=== PATIENT | male | born 1935 | race Caucasian/White ===

== ENCOUNTER 2017-04-09 21:29 | Inpatient (IN) | payer MEDICARE ==
[~2017-04-09] VITALS: Ht 172.7 cm; Wt 88.8 kg
[~2017-04-09 21:29] MED LIST changes: -ASPI1TAB24 PO; -BUME0.5T PO; -COUM1TAB14 PO; -DRIS50002 PO
[2017-04-09] MEDS: IPRATROPIUM 0.5MG/ALBUTEROL 2.5MG INH SOL UD 3ML (DUONEB)(J7620) NEB PRN ×2 (22:00→22:43)
[2017-04-09] MEDS ORDERED: NS 500 ML IV ONE ×2 (22:00→22:45)
[2017-04-09 22:20] LABS: BASO % 0.3 % (0.0-1.0); EOS # 0.1 K/mm3 (0.0-0.50); EOS % 1.4 % (0.0-3.0); LARGE UNSTAINED CELL % 0.4 % (0.0-4.0); LYMPH # 0.2 K/mm3 (1.5-4.5); LYMPH % 1.7 % (24.0-44.0); MEAN CORPUSCULAR HEMOGLOBIN 32.6 pg (27.0-33.0); MEAN CORPUSCULAR HGB CONC 33.6 g/dl (32.0-36.5); MEAN CORPUSCULAR VOLUME 97.1 fl (80.0-96.0); MONO # 0.3 K/mm3 (0.0-0.8); MONO % 3.3 % (0.0-5.0); NEUTROPHILS # 9.3 K/mm3 (1.8-7.7); NEUTROPHILS % 92.8 % (36.0-66.0); PLATELET COUNT, AUTOMATED 152 k/mm3 (150-450); RED CELL DISTRIBUTION WIDTH 14.1 % (11.5-14.5)
[2017-04-09 22:42] LABS: ALBUMIN 3.3 GM/DL (3.2-5.2); ALBUMIN/GLOBULIN RATIO 0.94 (1.00-1.93); BILIRUBIN,DIRECT 1.1 MG/DL (0.0-0.2); BILIRUBIN,TOTAL 1.7 MG/DL (0.2-1.0); CALCIUM LEVEL 8.1 MG/DL (8.8-10.2); CREATININE FOR GFR 2.73 MG/DL (0.70-1.30); POTASSIUM SERUM 4.9 MEQ/L (3.5-5.1); TOTAL PROTEIN 6.8 GM/DL (6.4-8.2)
[2017-04-09] MEDS ORDERED: ACETAMINOPHEN TAB 650MG DOSE (2X325MG) PO ONE (22:45)
[2017-04-09] MEDS ORDERED: cefTRIAXone SOD 2 GM in D5W MINI-BAG PLUS 50 ML IV ONE (22:45)
[2017-04-09] MEDS ORDERED: COUM1TAB14 PO (23:41)
[2017-04-09] MEDS ORDERED: BUME0.5T PO (23:41)
[2017-04-09] MEDS ORDERED: DRIS50002 PO (23:42)
[2017-04-09] MEDS ORDERED: ASPI1TAB24 PO (23:43)
[2017-04-10] VITALS (8 sets, daily range): BP systolic 84–110; BP diastolic 6–68
[2017-04-10 00:20] LABS: ABG BASE EXCESS -3.5 (-2.0-2.0); ABG HCO3 19.3 MEQ/L (22.0-26.0); ABG PARTIAL PRESSURE CO2 29.4 mmHg (35.0-45.0); ABG PARTIAL PRESSURE O2 68.1 mmHg (75.0-100.0); ABG STANDARD HCO3 21.5 MEQ/L (22.0-26.0); ABG TOTAL CO2 20.2 MEQ/L (23.0-31.0); ABG pH (ARTERIAL) 7.436 UNITS (7.350-7.450)
[2017-04-10] MEDS ORDERED: ALBUTEROL SULFATE 2.5 MG/0.5 ML INH NEB SOLN INH PRN ×2 (01:00→04:20)
[2017-04-10] MEDS ORDERED: ALBUTEROL 90 MCG/ACT 8GM HFA INHALER INH PRN (01:00)
[2017-04-10] MEDS ORDERED: AZITHROMYCIN INJ 500 MG, VIAL MATE ADAPTER 1 EACH in D5W 250 ML IV SCH (01:00)
[2017-04-10] MEDS ORDERED: ONDANSETRON 4MG/2ML VIAL (J2405) IV PRN (01:15)
[2017-04-10] MEDS ORDERED: ACETAMINOPHEN TAB 650MG DOSE (2X325MG) PO PRN (01:15)
[2017-04-10] MEDS ORDERED: ALBUTEROL SULFATE 2.5 MG/0.5 ML INH NEB SOLN As Ordered ONE (04:26)
[2017-04-10] MEDS: LEVOTHYROXINE 0.075 MG TAB (75 MCG) PO SCH (05:49)
[2017-04-10 05:51] LABS: MEAN CORPUSCULAR HEMOGLOBIN 32.8 pg (27.0-33.0); MEAN CORPUSCULAR HGB CONC 33.5 g/dl (32.0-36.5); MEAN CORPUSCULAR VOLUME 97.8 fl (80.0-96.0); RED CELL DISTRIBUTION WIDTH 14.4 % (11.5-14.5); WHITE BLOOD COUNT 9.7 K/mm3 (4.0-10.0)
[2017-04-10 06:27] LABS: ALBUMIN 2.9 GM/DL (3.2-5.2); ALBUMIN/GLOBULIN RATIO 0.71 (1.00-1.93); CALCIUM LEVEL 8.1 MG/DL (8.8-10.2); CREATININE FOR GFR 2.83 MG/DL (0.70-1.30); POTASSIUM SERUM 4.7 MEQ/L (3.5-5.1)
[2017-04-10] MEDS: TIOTROPIUM INHALER/CAPSULE (SPIRIVA) INH SCH (07:34)
[2017-04-10] MEDS: SYMBICORT 160/4.5MCG INHALER 6GM INH SCH ×2 (07:35→21:00)
[2017-04-10] MEDS: MOM 30ML SUSPENSION UDC PO SCH (08:23)
[2017-04-10] MEDS: ASPIRIN 81 MG ENTERIC TAB PO SCH (08:23)
[2017-04-10] MEDS: METOPROLOL SUCC *XL* 25MG TAB (TopROL *XL*) PO SCH (08:23)
[2017-04-10] MEDS ORDERED: SPIRONOLACTONE 25 MG TAB PO SCH (09:00)
--- NOTE | 2017-04-10 10:22 | IPNPDOC ---
Subjective Date Seen The patient was seen on 04/10/17. Subjective Chief Complaint/HPI The patient is a 82-year-old male admitted with a reason for visit of Pneumonia , Shortness Of Breath. Events since last encounter feeling better this am , still has some cough but no chills or rigors. no hemoptysis. denies any sob , denies ny chest pain , no nausea or vomiting or diarrhea. Objective Physical Examination General Exam: Positive: Alert, Cooperative, No Acute Distress Eye Exam: Positive: PERRLA, Conjunctiva & lids normal, EOMI, Negative: Sclera icteric ENT Exam: Positive: Atraumatic, Mucous membr. moist/pink, Pharynx Normal Neck Exam: Positive: Supple, Negative: JVD, thyromegaly Chest Exam: Positive: Rales, Diminished Heart Exam: Positive: Rate Normal, Regular Rhythm, Normal S1, Normal S2, Negative: Murmurs, Rubs Telemetry: Positive: No significant arrhythmia Abdomen Exam: Positive: Normal bowel sounds, Soft, Other (ascitis present), Negative: Tenderness, Hepatospenomegaly Extremity Exam: Positive: Normal pulses, Negative: Clubbing, Cyanosis, Edema Assessment /Plan Problems (1) Pneumonia Status: Acute Problem Text: will continue with current antibiotics. (2) CKD (chronic kidney disease) Status: Chronic Response to Treatment: Stable Problem Text: stage 4 due to age, advanced heart failure and vascular disease. creatinine at baseline (3) Cirrhosis Status: Chronic Problem Text: due to alcohol abuse has history of hepatorenal syndrome, recurrent ascites (4) Chronic systolic (congestive) heart failure Status: Chronic Response to Treatment: Stable Problem Text: last EF of 30% in 2015. 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 (13) Lactic acidosis Status: Acute Problem Text: possibly due to SOB and increased work of breathing and chronic liver disease. Plan/VTE VTE Prophylaxis Ordered?: Yes VS, I&O, 24H, Fishbone Vital Signs/I&O Vital Signs Date Time Temp Pulse Resp B/P (MAP) Pulse Ox O2 Delivery O2 Flow Rate FiO2 04/10/17 07:20 Nasal Cannula 2.0 04/10/17 04:00 96.1 54 20 90/62 (71) 94 Laboratory Data 24H LABS Laboratory Tests 2 04/09/17 22:03: White Blood Count 10.0, Red Blood Count 4.36, Hemoglobin 14.2, Hematocrit 42.3, Mean Corpuscular Volume 97.1H, Mean Corpuscular Hemoglobin 32.6, Mean Corpuscular Hemoglobin Concent 33.6, Red Cell Distribution Width 14.1, Platelet Count 152, Neutrophils (%) (Auto) 92.8H, Lymphocytes (%) (Auto) 1.7L, Monocytes (%) (Auto) 3.3, Eosinophils (%) (Auto) 1.4, Basophils (%) (Auto) 0.3, Neutrophils # (Auto) 9.3H, Lymphocytes # (Auto) 0.2L, Monocytes # (Auto) 0.3, Eosinophils # (Auto) 0.1, Basophils # (Auto) 0.0, Large Unclassified Cells % 0.4 , Large Unclassified Cells # 0.0, Prothrombin Time 22.8H, Prothromb Time International Ratio 2.00, Activated Partial Thromboplast Time 37.0, Anion Gap 9 , Glomerular Filtration Rate 24.0L, Lactic Acid Level 2.6*H, Calcium Level 8.1L , Aspartate Amino Transf (AST/SGOT) 90H, Alanine Aminotransferase (ALT/SGPT) 69 , Alkaline Phosphatase 251H, Total Bilirubin 1.7H, Direct Bilirubin 1.1H, Ammonia 47H, Total Creatine Kinase 44, Creatine Kinase MB 1.6, Creatine Kinase MB Relative Index 3.63, Troponin I 0.15H, B-Type Natriuretic Peptide 1290H, Total Protein 6.8, Albumin 3.3, Albumin/Globulin Ratio 0.94L, Thyroid Stimulating Hormone (TSH) 3.670 04/10/17 00:04: Urine Appearance CLEAR, Urine Color YELLOW, Urine pH 5.0, Urine Specific [place] 1.011, Urine Protein NEGATIVE, Urine Glucose (UA) NEGATIVE, Urine Ketones NEGATIVE, Urine Urobilinogen 0.2, Urine Bilirubin NEGATIVE, Urine Leukocyte Esterase NEGATIVE, Urine Blood NEGATIVE, Urine Nitrite NEGATIVE, Urine WBC (Auto) 3, Urine RBC (Auto) 0, Urine Hyaline Casts (Auto) 5, Urine Bacteria (Auto) NEGATIVE, Urine Squamous Epithelial Cells 0, Urine Mucus (Auto) SMALL, Urine Sperm (Auto) 04/10/17 00:06: Blood Gas Bicarbonate Standard 21.5L, Arterial Blood pH 7.436, Arterial Blood Partial Pressure CO2 29.4L, Arterial Blood Partial Pressure O2 68.1L, Arterial Blood Total CO2 20.2L, Arterial Blood HCO3 19.3L, Arterial Blood Base Excess - 3.5L, Arterial Blood Oxygen Saturation 93.6L 04/10/17 02:47: Lactic Acid Followup at 4 Hours 3.4*H 04/10/17 03:45: Urine Random Creatinine 99.1, Urine Random Sodium 27 04/10/17 05:34: Anion Gap 12, Glomerular Filtration Rate 23.0L, Blood Urea Nitrogen 72H, Creatinine 2.83H, Sodium Level 131L, Potassium Level 4.7, Chloride Level 99, Carbon Dioxide Level 20L, Calcium Level 8.1L, Aspartate Amino Transf (AST/SGOT) 92H, Alanine Aminotransferase (ALT/SGPT) 88H, Alkaline Phosphatase 243H, Total Bilirubin 1.0, Total Protein 7.0, Albumin 2.9L, Troponin I 0.20#H, Albumin/ Globulin Ratio 0.71L 04/10/17 09:28: CBC/BMP Laboratory Tests 04/09/17 22:03 Red Blood Count 4.36, Mean Corpuscular Volume 97.1 H, Mean Corpuscular Hemoglobin 32.6, Mean Corpuscular Hemoglobin Concent 33.6, Red Cell Distribution Width 14.1, Neutrophils (%) (Auto) 92.8 H, Lymphocytes (%) (Auto) 1.7 L, Monocytes (%) (Auto) 3.3, Eosinophils (%) (Auto) 1.4, Basophils (%) (Auto ) 0.3, Neutrophils # (Auto) 9.3 H, Lymphocytes # (Auto) 0.2 L, Monocytes # (Auto ) 0.3, Eosinophils # (Auto) 0.1, Basophils # (Auto) 0.0 04/10/17 05:34 Red Blood Count 4.40, Mean Corpuscular Volume 97.8 H, Mean Corpuscular Hemoglobin 32.8, Mean Corpuscular Hemoglobin Concent 33.5, Red Cell Distribution Width 14.4, Calcium Level 8.1 L, Aspartate Amino Transf (AST/SGOT) 92 H, Alanine Aminotransferase (ALT/SGPT) 88 H, Alkaline Phosphatase 243 H, Total Bilirubin 1.0, Total Protein 7.0, Albumin 2.9 L Microbiology Microbiology 04/09/17 Blood Culture, Received Pending 04/09/17 Blood Culture, Received Pending 04/10/17 Respiratory Virus Panel (PCR) ([facility]) - Final, Complete 04/10/17 Gram Stain, Received Pending 04/10/17 Sputum Culture, Received Pending RADHA CENTENO MD April 10, 2017 10:22
[2017-04-10] MEDS ORDERED: DOBUTamine HCL 500,000 MCG in APPROPRIATE DILUENT 1 EA IV SCH (10:30)
[2017-04-10] MEDS ORDERED: FUROSEMIDE 40 MG/4 ML VIAL (J1940) IV ONE ×2 (11:30→18:00)
[2017-04-10] MEDS: MIDODRINE 5 MG TAB PO SCH ×2 (11:37→18:21)
--- NOTE | 2017-04-10 16:11 | REP ---
RENAL ULTRASOUND: HISTORY: Chronic renal disease. Comparison: 04/19/2016 The kidneys are normal in echogenicity. The right kidney measures 5.8 cm in transverse x 7 cm in AP x 13.7 cm in cephalocaudal dimensions. The left kidney measures 5.3 cm in transverse x 5.4 cm in AP x 13 cm in cephalocaudal dimensions. A cyst versus extrarenal pelvis is present on the right. There is no left hydronephrosis. There is no mass. There are no definite filling defects in the urinary bladder. IMPRESSION: There is a right renal cyst versus extrarenal pelvis. This is unchanged compared to previous study. Signed by Quang Yi MD 04/10/2017 04:15 P
[2017-04-10] MEDS: WARFARIN SOD 2 MG TAB PO SCH (18:22)
--- NOTE | 2017-04-10 18:52 | CR ---
DATE OF CONSULTATION: 04/10/2017 REQUESTING PHYSICIAN: Dr. Holly Khanna CONSULTING PHYSICIAN: Olga Colin MD REASON FOR CONSULTATION: Management of acute kidney injury superimposed on chronic kidney disease stage IV and management of fluid status and history of congestive heart failure. CHIEF COMPLAINT: The patient presented to the emergency room yesterday with fever, chills, and shortness of breath. HISTORY OF PRESENT ILLNESS: Mr. Ruben Mas is an 82-year-old male with past medical history of chronic kidney disease stage III to early stage IV with a baseline creatinine of around 2.2 as of December 2016. He is a patient of Dr. Arreguin as outpatient. He has history of systolic congestive heart failure with cardiorenal syndrome, chronically on diuretics. The patient presented to the emergency room last night with fever, chills, shortness of breath. He was started on intravenous (IV) antibiotics. There was a bump in his creatinine level, as well. Creatinine was 2.7 on admission. Because of change in his creatinine and fevers, he was treated with IV fluids. After the initial fluid boluses, the family refused to give any more fluids to the patient, and they also refused to have the patient's diuretic held before he was seen by nephrology service, so nephrology service was called for further help in the management of this patient with acute kidney injury superimposed on chronic kidney disease stage IV and management of volume status. PAST MEDICAL HISTORY: The patient has a past medical history of chronic kidney disease stage III to early stage IV. He has cirrhosis, but he does not get recurrent ascites. Last ascites attack was about a year ago. He has a history of chronic obstructive pulmonary disease (COPD), history of atrial fibrillation (AFib), previous cardiorenal syndrome, systolic congestive heart failure, and chronic right-sided hydronephrosis. PAST SURGICAL HISTORY: Status post open reduction internal fixation of the left leg fracture, status post appendectomy, status post carpal tunnel release bilaterally, status post right knee replacement, history of bilateral cataract lens implants, and history of aortic valve replacement, and history of coronary artery bypass grafting. ALLERGIES: No known drug allergies. FAMILY HISTORY: No significant family history of end-stage renal disease requiring hemodialysis. SOCIAL HISTORY: The patient is legally . Lives with significant other. He is retired. He never smoked. He has history of alcohol abuse in the past, but he quit. There is no history of illicit drug abuse. REVIEW OF SYSTEMS: CONSTITUTIONAL: The patient reported fever and chills when he arrived. EYES: He denies any blurry vision or double vision. EARS, NOSE, AND THROAT (ENT): He denies any dysphagia, odynophagia, or ear discharge. CARDIOVASCULAR: The patient reports atrial fibrillation (AFib), but he denies any edema, and he gives history of congestive heart failure. RESPIRATORY: The patient reports cough and shortness of breath on arrival. He is being treated for pneumonia. GASTROINTESTINAL (GI): The patient reports history of cirrhosis, but he denies any recent ascites requiring ascetic tap. GENITOURINARY: The patient denies any dysuria or hematuria, but he reports that urine output is decreased. MUSCULOSKELETAL: He denies any muscle aches and pains. CENTRAL NERVOUS SYSTEM (HEALTH INFORMATION MANAGERS): He denies any strokes or seizure. SKIN: He denies any rashes or ulcers. HEMATOLOGICAL AND ONCOLOGICAL: The patient is on long-term anticoagulation because of AFib, but he denies any bleeding or easy bruising. PSYCHIATRIC: He denies anxiety or depression. ENDOCRINE: He reports hypothyroidism, but he denies diabetes. PHYSICAL EXAMINATION: GENERAL: The patient is awake, alert, oriented times two, laying in bed, no apparent distress. HEAD AND NECK EXAMINATION: Extraocular muscles intact. Pupils equally round and reactive to light. Mucous membranes are moist. Neck is supple. There is mildly elevated jugular venous distention (JVD). CARDIOVASCULAR: S1, S2. Irregularly irregular heart rate. No murmur, rub, and gallop. RESPIRATORY: Decreased breath sounds at the bases. Mild crepitations on the bases on deep inspiration. ABDOMEN: Is soft, positive bowel sounds. No ascites. No organomegaly. EXTREMITIES: No clubbing or cyanosis. Pulses are 2+. No edema. SKIN: No rashes or ulcers. CENTRAL NERVOUS SYSTEM (HEALTH INFORMATION MANAGERS): No focal neurological deficit. No asterixis at this time. PSYCHIATRIC: Normal mood and affect. LABORATORY REVIEW: CBC showed a WBC of 9.7, hemoglobin is 14.4, platelets are 154. INR is 2. Urinalysis showed no proteinuria, negative nitrite, negative leukocyte esterase, random urine creatinine was 99.1, random sodium was 27, fractional excretion of sodium was 0.58%. Arterial blood gas (ABG) done this morning showed pH of 7.43, PCO2 of 29, pO2 of 68, bicarbonate 19, oxygen (O2) saturation was 93%. BMP showed sodium 131, potassium 4.7, chloride 99, bicarbonate is 20, BUN 72, creatinine 2.8, lactic acid was 3.4, calcium 8.1, troponin was 0.20, albumin was 2.9, ammonia level 47. MICROBIOLOGY: Respiratory viral panel is negative. Blood cultures are pending. IMAGING: A renal ultrasound done today morning showed a right renal cyst versus extrarenal pelvis, unchanged renal ultrasound. No masses. No hydronephrosis. CURRENT INPATIENT MEDICATIONS: The patient's inpatient medications were all reviewed by me. He is currently on ceftriaxone 2 gram IV. One does was given, and he is currently on 1 gram IV daily. The patient was also given azithromycin 500 mg IV times one. He was given normal saline 500 mL boluses times two. He is on Proventil nebulizations, aspirin 81 mg daily, Symbicort one puff twice a day, levothyroxine 75 mcg by mouth daily, metoprolol 25 mg by mouth daily. I have started the patient on midodrine 5 mg by mouth every 8 hours. I gave him a dose of Lasix 40 mg IV times one dose. He is on Zofran as needed, warfarin 4 mg by mouth on Saturday, , Saturday and 2 mg on Saturday, Saturday, Saturday, Saturday. ASSESSMENT: An 82-year-old male with past medical history of chronic kidney disease stage III to early stage IV, best baseline creatinine is 2.2, history of cirrhosis, systolic congestive heart failure, and chronic obstructive pulmonary disease, admitted this time with fever, chills, rigors, being treated for pneumonia. Nephrology service called for help in the management of acute kidney injury superimposed on chronic kidney disease and volume management. PLAN: 1. Acute kidney injury superimposed on chronic kidney disease stage IV. The patient's baseline creatinine is 2.2. It was 2.7 on admission. It got worse after IV fluid hydration, and it is 2.8 right now. The patient's lactate is also getting worse despite IV fluid hydration and antibiotics. The patient's echocardiogram is pending. Previous echocardiogram done in 2014 showed his ejection fraction (EF) was around 30%. I suspect that it might be cardiorenal syndrome. I stopped the IV fluids. I gave the patient a dose of Lasix 40 mg IV times one dose. The patient is slightly hypotensive. I started him on midodrine 5 mg by mouth every 8 hours. Continue to do serial monitoring of lactic acid level. Continue serial troponin. I have also ordered a [place] catheter placement for accurate measurement of intake and output and daily weights. 2. Chronic systolic congestive heart failure. As mentioned above, the patient' s baseline EF was around 30% 2 years ago. Repeat echocardiogram result is pending. He was on Bumex at home. I have stopped the Bumex, and I have started the patient on Lasix 40 mg IV twice a day for now, and I strongly suspect that the lactic acid level is because of the patient's congestive heart failure, impaired tissue oxygenation, history of cirrhosis, hepatic congestion, and inability of the liver to metabolize lactate. The patient does not have any fever. There are no signs of sepsis, and he already has received antibiotics in the emergency room, as well. 3. Cirrhosis. I got the ultrasound for diagnostic tap , and I was told that the patient does not have any significant ascites or ascitic tap at this time. The patient is less likely to have hepatorenal syndrome at this time. I would hold off on albumin administration or octreotide at this time. 4. Atrial fibrillation. Currently, he is rate controlled. Coumadin dose is as per primary team. Okay to continue metoprolol 25 mg by mouth daily. 5. Hyponatremia. It is most likely hypervolemic hyponatremia. Sodium was 135 on admission, which got worse to 131 after IV fluid administration. I am expecting that with the administration of Lasix, his sodium would improve. 6. Metabolic acidosis. The patient's bicarbonate was 30. No need of bicarbonate administration at this time. Metabolic acidosis is secondary to acute kidney injury and lactic acidosis. Bicarbonate level is expected to improve with improvement of renal function. 7. Elevated troponin level. It is most likely stress induced. The patient's brain natriuretic peptide (BNP) is 1290. Continue the aspirin at this time. I am expecting that with further diuresis, his troponin level will come down. 8. Hypotension. I have placed the patient on midodrine 5 mg by mouth three times a day. That would help keep the mean arterial pressure above 65 and help in the improvement of renal function, as well. The plan of care was discussed with the patient's daughter, Zarina, and with the hospitalist, Dr. Holly Khanna. ADIEL
--- NOTE | 2017-04-10 21:56 | HPE ---
DATE OF ADMISSION: 04/10/2017 PRIMARY CARE PROVIDER: Dr. Dandy Coello. CHIEF COMPLAINT: Fever, cough. HISTORY OF PRESENT ILLNESS: The patient is an 82-year-old man who tells that for the last three days has had on-and-off chills associated with cough. Two weeks ago he had a dental extraction done in the office done at the [facility] ([place]), and afterwards he felt fine. However, he has progressively over the last couple of days had worsening chill and cough. Denies any changes in appetite or changes in food intake or salt intake. No new medications. He denies chest pressure, lightheadedness, dizziness, nausea or vomiting, changes in urinary habits. PAST MEDICAL HISTORY: 1. Systolic congestive heart failure, ejection fraction approximately 30%. 2. Aortic valve replacement bioprosthesis. 3. Atrial fibrillation on chronic anticoagulation. 4. Alcoholic liver cirrhosis. 5. Chronic obstructive pulmonary disease (COPD). 6. Coronary artery disease. 7. Obstructive sleep apnea on continuous positive airway pressure (CPAP). 8. Dyslipidemia. 9. Hypothyroidism. 10. Hepatorenal syndrome with chronic kidney disease. 11. Dental caries. 12. History of alcohol abuse. ALLERGIES: No known drug allergies. PAST SURGICAL HISTORY: 1. Bioprosthetic aortic valve replacement in 2008. 2. Right knee replacement 20 years ago. 3. Left lower extremity metal leland inserted in the . 4. Cataract surgery 2009. 5. Carpal tunnel release 2005. 6. Left inguinal hernia repair 2016. SOCIAL HISTORY: He is a former smoker, former drinker. He lives with one of his daughters. He follows with the [facility] ([place]) for cardiology. HOME MEDICATIONS: - Bumex 0.5 mg in the evening, 1 mg in the morning - vitamin D 50,000 units once a week - PreserVision Areds one capsule twice a day - albuterol sulfate 2.5 mg nebulized four times a day as needed for shortness of breath - albuterol ProAir HFA 180 mcg two puffs inhaled four times a day as needed for shortness of breath - aspirin 81 mg daily - Symbicort 160/4.5 inhaled twice a day - levothyroxine 75 mcg daily - metoprolol succinate extended release 25 mg daily - milk of magnesia 2400 mg daily - aldactone 25 mg twice a day - Spiriva HandiHaler inhaled daily - Coumadin 2 mg four times a week, 4 mg three times a week FAMILY HISTORY: Noncontributory. REVIEW OF SYSTEMS: Negative other than the history of present illness (HPI). PHYSICAL EXAMINATION: VITAL SIGNS: Temperature maximum 101.2, temperature current 99.2, pulse 101, respiratory rate 30, blood pressure 93/56, oxygen saturation 91% on room air. GENERAL: He is a frail, elderly man sitting up in bed. He appears tired but in no acute distress. HEENT: He has a grayish appearance. He has moist mucous membranes. I appreciate some mild elevation of jugular venous pulse (JVP). CARDIOVASCULAR: S1, S2 without significant distal heart sounds appreciated. RESPIRATORY: Diminished breath sounds at the bases but no wheeze. ABDOMEN: Bowel sounds present. The abdomen is soft. EXTREMITIES: No clubbing, cyanosis. I do not appreciate any edema. LABORATORY DATA: WBC 10.0, hemoglobin 14.2, platelet count 152. Chemistry panel: Sodium 135, potassium 4.9, chloride 98, bicarbonate 28, BUN 72, creatinine 2.7. Baseline is approximately 2.3. Lactic acid elevated at 2.6. AST elevated at 9. PT barely elevated at 1.7. Ammonia is slightly elevated at 47. Troponin is equivocal at 0.15. BNP is elevated at 1290. TSH is within normal limits. An arterial blood gas reveals a pH of 7.4, pCO2 of 29, pO2 of 68. INR is 2.0. Urinalysis is essentially unremarkable. MICROBIOLOGY: Respiratory PCR panel is pending. Blood cultures are pending. IMAGING: The patient is had a chest x-ray that revealed chronic interstitial fibrosis, blunting of the costovertebral angle due to pleural thickening. There are small pleural effusions and cardiomegaly. ASSESSMENT AND PLAN: This is an 82-year-old man with fever, cough, possibly secondary to respiratory tract infection. 1. Community-acquired pneumonia. The patient has fever, cough, tachycardia, hypotension, elevated lactic acid all for the past 48 hours. He will be admitted to the progressive care unit. I will start him on empiric ceftriaxone, azithromycin. Followup respiratory polymerase chain reaction (PCR) panel and blood cultures. Trend his lactic acid. Chest x-ray does not an overt consolidation. He does not have leukocytosis. He does have pleural effusions and elevated brain natriuretic peptide (BNP) which are concerning for potentially decompensated congestive heart failure. He had been treated with intravenous (IV) fluids in the emergency room. At the present time, I did have a lengthy discussion with the patient and his daughter who is bedside. Daughter feels very strongly that no further IV fluids be given and that the patient continue to receive just diuretics as he is prone to problems with fluid overload previously in the past. After a lengthy discussion attempting to explain the possible etiology of his presentation, she requested that nephrology be consulted before any changes be made to his fluid status. We will admit him to the progressive care unit (PCU), monitor his intake and output and daily weights. Recommend nephrology consultation with Dr. Colin in the morning. We will check an echocardiogram as he has previously documented ejection fraction (EF) of 30%. 2. Coronary artery disease. 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 He is on a beta june which we will continue with holding parameters, given his soft blood pressure. He does have some mild troponinemia. We will continue to trend. This is likely due to demand. He does not have any concerning electrocardiogram (EKG) changes. 3. Atrial fibrillation. The patient is currently rate controlled with metoprolol. Once again we will continue with holding parameters and anticoagulate with Coumadin which we will continue and monitor his international normalized ratio (INR) daily. 4. Obstructive sleep apnea. The patient should continue his home CPAP. 5. History of cerebrovascular accident (CVA). The patient is on aspirin and Coumadin. He is not on a statin; again, defer to his outpatient providers through the [place]. 5. Acute on chronic kidney injury. Baseline creatinine appears to be approximately 2.4, but is at a slow decline. He was previously diagnosed with hepatorenal syndrome with hepatic liver cirrhosis related to alcohol. For the time being, we will hold his diuretics and will hold any further IV fluids, but he did receive some already in the emergency room. Followup his renal function in the morning. Get a nephrology consultation. 6. Alcoholic liver cirrhosis. The patient's last paracentesis was over a year ago, and they tell me that his disease has been relatively stable. Continue to followup with his outpatient providers. He has a mildly elevated ammonia level but no asterixis on exam. The patient will need to be on his aldactone with holding parameters and beta june. I do not have high suspicion for spontaneous bacterial peritonitis (SBP) and do not think he warrants a tap. He does not have any abdominal symptoms whatsoever, and he has not had any recent taps, and there is not significant ascites at physical exam at the present time, and he should be adequate covered with ceftriaxone. 7. Hypothyroidism. Continue with Synthroid. 8. Dental caries. He [facility] 9. Chronic obstructive pulmonary disease (COPD). Continue with his Spiriva, albuterol, and Symbicort. 10. Deep venous thrombosis (DVT) prophylaxis. The patient is on Coumadin. DISPOSITION: The patient is admitted to the medical/surgical floor to Dr. Khanna's service, who will be following the patient in the morning.
[2017-04-10] MEDS: cefTRIAXone SOD 1 GM in D5W MINI-BAG PLUS 50 ML IV SCH (22:45)
[2017-04-11] VITALS (7 sets, daily range): BP systolic 78–118; BP diastolic 50–79
[2017-04-11 01:00] LABS: CALCIUM LEVEL 8.4 MG/DL (8.8-10.2); CREATININE FOR GFR 2.99 MG/DL (0.70-1.30); GLOMERULAR FILTRATION RATE 21.6 (>35); MAGNESIUM LEVEL 3.3 MG/DL (1.8-2.4)
[2017-04-11 02:14] LABS: POTASSIUM SERUM 5.3 MEQ/L (3.5-5.1)
[2017-04-11 05:01] LABS: MEAN CORPUSCULAR HEMOGLOBIN 32.5 pg (27.0-33.0); MEAN CORPUSCULAR HGB CONC 33.5 g/dl (32.0-36.5); MEAN CORPUSCULAR VOLUME 96.9 fl (80.0-96.0); RED CELL DISTRIBUTION WIDTH 14.2 % (11.5-14.5); WHITE BLOOD COUNT 7.4 K/mm3 (4.0-10.0)
[2017-04-11 05:04] LABS: INR 2.23
[2017-04-11 05:22] LABS: CALCIUM LEVEL 7.8 MG/DL (8.8-10.2); CREATININE FOR GFR 2.93 MG/DL (0.70-1.30); GLOMERULAR FILTRATION RATE 22.1 (>35)
[2017-04-11 05:25] LABS: POTASSIUM SERUM 5.2 MEQ/L (3.5-5.1)
[2017-04-11] MEDS: LEVOTHYROXINE 0.075 MG TAB (75 MCG) PO SCH (06:13)
[2017-04-11] MEDS: MIDODRINE 5 MG TAB PO SCH (06:53)
[2017-04-11] MEDS: TIOTROPIUM INHALER/CAPSULE (SPIRIVA) INH SCH (07:09)
[2017-04-11] MEDS: SYMBICORT 160/4.5MCG INHALER 6GM INH SCH ×2 (07:10→19:53)
--- NOTE | 2017-04-11 07:19 | ECHO ---
DATE OF PROCEDURE: 04/10/2017 REFERRING PHYSICIAN: Dr. Sadaf Hummel INDICATION: Heart failure. HEIGHT: 173 cm. WEIGHT: 87 kg. MEASUREMENTS: Ventricular septum - 1.55 cm Posterior wall - 1.50 cm Left ventricle diastole - 5.1 cm Left atrium - 4.3 cm Aortic root - 3.1 cm LVOT - 1.6 cm Inferior vena cava - 2.7 cm Doppler Measurements: Aortic valve velocity - 130 cm/s LVOT velocity - 80.5 cm/s LVOT VTI - 15.5 cm Mild mitral regurgitation. Moderate tricuspid regurgitation. Estimated right ventricle systolic pressure at least 56 mmHg. Estimating a central venous pressure of at least 20 mmHg. No pulmonic regurgitation. DESCRIPTION: Rhythm was atrial fibrillation with controlled ventricular response. Appearance of left bundle branch block morphology. Image quality was fair. No pericardial effusion. This is a 2D, M-mode, color flow Doppler and pulsed wave Doppler examination including mitral annular tissue Doppler. CONCLUSIONS: 1. Moderate concentric left ventricular hypertrophy. Severe global LV hypokinesis with mild paradoxical septal motion. Severe reduction of overall LV systolic function. LVEF 20% by visual estimated. Unable to determine LV diastolic function in the setting of atrial fibrillation. 2. Mild left atrial dilatation. 3. Suggestive of at least moderate elevation of estimated right ventricle systolic pressure (at least 56 mmHg). Appearance of a dilated right ventricle with severe reduction in right ventricle systolic function. Appearance of severe right atrial dilatation. Structurally brigitte appearing tricuspid leaflets. Moderate tricuspid regurgitation. Inferior vena cava plethora. Suggestive of elevated central venous pressure of at least 20 mmHg. 4. Moderate aortic valve sclerosis if a three-cuspid aortic valve. No aortic regurgitation or aortic cusps. 5. Moderate mitral annular calcification. No mitral stenosis. Mild mitral regurgitation.
[2017-04-11] MEDS ORDERED: IPRATROPIUM 0.5MG/ALBUTEROL 2.5MG INH SOL UD 3ML (DUONEB)(J7620) NEB SCH (08:00)
--- NOTE | 2017-04-11 08:35 | ECGEPIP ---
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
[2017-04-11] MEDS: METOPROLOL SUCC *XL* 25MG TAB (TopROL *XL*) PO SCH (09:00)
[2017-04-11] MEDS: ASPIRIN 81 MG ENTERIC TAB PO SCH (09:09)
[2017-04-11] MEDS: MOM 30ML SUSPENSION UDC PO SCH (09:09)
[2017-04-11] MEDS: DOBUTamine HCL 500,000 MCG in APPROPRIATE DILUENT 1 EA IV SCH (09:09)
[2017-04-11 10:19] LABS: ALBUMIN 3.2 GM/DL (3.2-5.2); PHOSPHORUS LEVEL 4.4 MG/DL (2.5-4.9)
--- NOTE | 2017-04-11 11:43 | IPNPDOC ---
Subjective Date Seen The patient was seen on 04/11/17. Subjective Chief Complaint/HPI The patient is a 82-year-old male admitted with a reason for visit of Pneumonia , Shortness Of Breath. Events since last encounter patient feeling better this morning, denied any shortness of breath, denied any chest pain , denied any fever or chills, no nausea or vomiting or diarrhea. Objective Physical Examination General Exam: Positive: Alert, Cooperative, No Acute Distress Eye Exam: Positive: PERRLA, Conjunctiva & lids normal, EOMI, Negative: Sclera icteric ENT Exam: Positive: Atraumatic, Mucous membr. moist/pink, Pharynx Normal Neck Exam: Positive: Supple, Negative: JVD, thyromegaly Chest Exam: Positive: Rales, Diminished Heart Exam: Positive: Rate Normal, Regular Rhythm, Normal S1, Normal S2, Negative: Murmurs, Rubs Telemetry: Positive: No significant arrhythmia Abdomen Exam: Positive: Normal bowel sounds, Soft, Other (ascitis present), Negative: Tenderness, Hepatospenomegaly Extremity Exam: Positive: Normal pulses, Negative: Clubbing, Cyanosis, Edema Assessment /Plan Problems (1) Pneumonia Status: Acute Problem Text: will continue with current antibiotics. (2) CKD (chronic kidney disease) Status: Chronic Response to Treatment: Stable Problem Text: Quintin on ckd stage 4 due to age, advanced heart failure and vascular disease. creatinine now worse due to CHF exacerbation. (3) Cirrhosis Status: Chronic Problem Text: due to alcohol abuse has history of hepatorenal syndrome, recurrent ascites No ascitis now , (4) Chronic systolic (congestive) heart failure Status: Chronic Response to Treatment: Stable Problem Text: acute exacerbation of chronic systolic CHF echo now shows EF of 20% down from 30% , will severe pulmonary hypertension and right heart failure. will consult cardiology dobutamine has been started. (5) COPD (chronic obstructive pulmonary disease) Status: Chronic Problem Text: has interstitial fibrosis will continue with nebs (6) Hypercholesterolemia Status: Chronic (7) HTN (hypertension) Status: Chronic Problem Text: at present low bp due to advanced systolic chf and cirrhosis. 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 (13) Lactic acidosis Status: Acute Problem Text: possibly due to SOB and increased work of breathing and chronic liver disease and chf exacerbation Plan/VTE VTE Prophylaxis Ordered?: Yes Plan/Urinary Catheter Reason for insertion/continuin: Critical Pt monitoring VS, I&O, 24H, Fishbone Vital Signs/I&O Vital Signs Date Time Temp Pulse Resp B/P (MAP) Pulse Ox O2 Delivery O2 Flow Rate FiO2 04/11/17 09:00 46 118/68 04/11/17 08:25 97.2 16 100 Nasal Cannula 3.0 I&O- Last 24 Hours up to 6 AM 04/11/17 05:59 Intake Total 1560 ml Output Total 1125 ml Balance 435 ml Laboratory Data 24H LABS Laboratory Tests 2 04/10/17 12:11: Troponin I 0.43#H 04/10/17 14:12: Lactic Acid Followup at 4 Hours 2.9*H 04/10/17 17:57: Troponin I 0.67#H 04/11/17 00:21: Anion Gap 7L, Glomerular Filtration Rate 21.6L, Blood Urea Nitrogen 84H, Creatinine 2.99H, Sodium Level 130L, Potassium Level 5.3H, Chloride Level 99, Carbon Dioxide Level 24, Calcium Level 8.4L, Phosphorus Level 4.4, Magnesium Level 3.3H, Albumin 3.2 04/11/17 04:39: Prothrombin Time 24.8H, Prothromb Time International Ratio 2.23, Activated Partial Thromboplast Time 45.1H, Anion Gap 11, Glomerular Filtration Rate 22.1L , Blood Urea Nitrogen 80H, Creatinine 2.93H, Sodium Level 133L, Potassium Level 5.2H, Chloride Level 98, Carbon Dioxide Level 24, Calcium Level 7.8L, Troponin I 0.77H CBC/BMP Laboratory Tests 04/11/17 00:21 Calcium Level 8.4 L 04/11/17 04:39 Calcium Level 7.8 L, Red Blood Count 4.15 L, Mean Corpuscular Volume 96.9 H, Mean Corpuscular Hemoglobin 32.5, Mean Corpuscular Hemoglobin Concent 33.5, Red Cell Distribution Width 14.2 Microbiology Microbiology 04/09/17 Blood Culture - Preliminary, Resulted No growth after 24 hours . All specim... 04/09/17 Blood Culture - Preliminary, Resulted No growth after 24 hours . All specim... 04/10/17 Respiratory Virus Panel (PCR) (NAVID) - Final, Complete 04/10/17 Gram Stain - Final, Resulted 04/10/17 Sputum Culture, Resulted Pending RADHA CENTENO MD Apr 11, 2017 11:43
[2017-04-11] MEDS: FUROSEMIDE 40 MG/4 ML VIAL (J1940) IV SCH ×2 (12:36→17:38)
[2017-04-11 12:54] LABS: ALBUMIN 3.3 GM/DL (3.2-5.2); CALCIUM LEVEL 8.4 MG/DL (8.8-10.2); CREATININE FOR GFR 2.89 MG/DL (0.70-1.30); GLOMERULAR FILTRATION RATE 22.5 (>35); PHOSPHORUS LEVEL 4.3 MG/DL (2.5-4.9)
[2017-04-11 12:58] LABS: POTASSIUM SERUM 5.3 MEQ/L (3.5-5.1)
--- NOTE | 2017-04-11 17:27 | IPN ---
DATE: 04/11/2017 SUBJECTIVE: Patient was seen and examined at the bedside today morning. Last 24 hour events were noted. Patient continued to be hypotensive this morning. Patient got the echocardiogram done yesterday. Echocardiogram showed severely reduced left ventricular ejection fraction which was around 20% and severely dilated right ventricle with elevated central venous pressures. Patient's renal function was not improving. REVIEW OF SYSTEMS: Patient is unable to provide any reliable review of systems but he denies any fever, chills, rigors, headache, nausea, vomiting, or chest pain. He does report some shortness of breath. He denies any pain in abdomen, constipation, or diarrhea. Rest of review of systems is negative. OBJECTIVE: VITAL SIGNS: Temperature 97.2 degrees Fahrenheit, blood pressure was 80/58, pulse was 46, respiratory rate of 16, saturating 100% on nasal cannula at 3 liters. INTAKE and OUTPUT: Urine output recorded is 925 mL yesterday and 600 mL so far today since overnight after starting dobutamine and Lasix. PHYSICAL EXAMINATION: GENERAL: Patient is awake, alert, oriented times two, laying in bed in no apparent distress. HEAD and NECK EXAM: Extraocular muscles intact. Pupils equally round and reactive to light. Mucous membranes are moist. Neck is supple. There is mildly elevated jugular venous distention (JVD) and engorgement of the external jugular veins. CARDIOVASCULAR: S1, S2, irregularly irregular heart rate. No murmur, rub, or gallop. RESPIRATORY: Decreased breath sounds at the bases. Mild crepitations at the bases on deep inspiration. ABDOMEN: Soft. Positive bowel sounds. No ascites. No organomegaly. EXTREMITIES: No clubbing or cyanosis. Pulses are 2+. No edema of the bilateral lower extremities. 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 No asterixis. PSYCHIATRIC: Normal mood and affect. LABORATORY REVIEW: CBC showed a WBC of 7.4, hemoglobin 13.5, platelets 144, INR is 2.23. BMP done today morning showed sodium 133, potassium 5.2, chloride 98, bicarbonate 24, BUN 80, creatinine 2.9, calcium 7.8, troponin 0.77. CURRENT MEDICATIONS: Patient's medications were all reviewed by me. He was started on dobutamine drip at 1 mcg/kg per minute. Albuterol nebulizations were stopped. He has been started on Lasix 40 mg IV every 6 hours. Midodrine has been stopped. Echocardiogram report: Echocardiogram done yesterday showed severe concentric left ventricular hypertrophy and severe global left ventricular hypokinesis. Ejection fraction was around 20%. There was a dilated right ventricle with severe reduction in the right ventricular systolic function with severe right atrial dilatation as well. There were elevated central venous pressures of at least 20 mmHg. ASSESSMENT: 82-year-old male with past medical history of chronic kidney disease stage III to early stage IV, baseline creatinine of around 2.2, history of cirrhosis, chronic systolic congestive heart failure, and chronic obstructive pulmonary disease (COPD), admitted at this time with fever and chills along with acute kidney injury superimposed on chronic kidney disease and decompensated congestive heart failure. PLAN: 1. Acute kidney injury superimposed on chronic kidney disease stage IV. Patient's baseline creatinine is 2.2. Patient is in cardiorenal syndrome at this time. He was hypotensive and decompensated. Repeat echocardiogram shows worsening of the left ventricular ejection fraction and very dilated right ventricle with elevated central venous pressures. He has been started on dobutamine drip. I have started the patient on Lasix 40 mg IV every 6 hours and we have requested cardiology to come on board as well. Renal function is expected to improve with improvement in the cardiac output. 2. Decompensated systolic congestive heart failure. As mentioned above, his ejection fraction is 20% now with severe dilated right ventricle. Oral diuretics would not work at this time. He has been started on Lasix injection. If he does not respond well then he will be started on Lasix drip. 3. Atrial fibrillation. Heart rate has been well controlled at this time. Continue Coumadin. Continue metoprolol at this time. Rest of the management is as per cardiology recommendations. 4. Hyponatremia. It is hypervolemic hyponatremia secondary to decompensated congestive heart failure. Continue diuretics at this time. 5. Hyperkalemia. It is secondary to acute renal failure. Potassium level is expected to improve with improvement in the renal function and urine output. No need of Kayexalate administration at this time. 6. Elevated troponin levels. It is most likely stress-induced ischemia. Continue aspirin at this time. Rest of the management as per cardiology recommendations. 7. Hypocalcemia. Patient was given a dose of calcium gluconate 1 gram IV today. Calcium has improved to 8.4 today.
[2017-04-11] MEDS: WARFARIN SOD 4 MG TAB PO SCH (17:37)
--- NOTE | 2017-04-11 20:50 | ECGEPIP ---
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 Nonspecific INTRAVENTRICULAR CONDUCTION DELAY Possible right ventricle hypertrophy. INFERIOR MYOCARDIAL INFARCTION, OF INDETERMINATE AGE ANTEROLATERAL MYOCARDIAL INFARCTION, OF INDETERMINATE AGE Electronically Signed On 04-11-2017 20:50:19 EDT by Griffin Hughes
[2017-04-11] MEDS: cefTRIAXone SOD 1 GM in D5W MINI-BAG PLUS 50 ML IV SCH (21:39)
[2017-04-12] MEDS: FUROSEMIDE 40 MG/4 ML VIAL (J1940) IV SCH ×4 (00:54→18:04)
[2017-04-12 04:24] VITALS: BP 98/60
[2017-04-12] MEDS: LEVOTHYROXINE 0.075 MG TAB (75 MCG) PO SCH (05:41)
[2017-04-12 05:53] LABS: MEAN CORPUSCULAR HEMOGLOBIN 33.6 pg (27.0-33.0); MEAN CORPUSCULAR HGB CONC 34.8 g/dl (32.0-36.5); MEAN CORPUSCULAR VOLUME 96.7 fl (80.0-96.0); RED CELL DISTRIBUTION WIDTH 14.3 % (11.5-14.5); WHITE BLOOD COUNT 7.6 K/mm3 (4.0-10.0)
[2017-04-12 06:01] LABS: INR 2.25
[2017-04-12 06:04] LABS: ALBUMIN 3.3 GM/DL (3.2-5.2); CALCIUM LEVEL 8.6 MG/DL (8.8-10.2); CREATININE FOR GFR 2.71 MG/DL (0.70-1.30); GLOMERULAR FILTRATION RATE 24.2 (>35); PHOSPHORUS LEVEL 3.8 MG/DL (2.5-4.9)
[2017-04-12 06:05] LABS: POTASSIUM SERUM 5.3 MEQ/L (3.5-5.1)
[2017-04-12 08:00] VITALS: BP 120/60
[2017-04-12] MEDS: METOPROLOL SUCC *XL* 25MG TAB (TopROL *XL*) PO SCH ×2 (09:00→09:23)
[2017-04-12] MEDS: ASPIRIN 81 MG ENTERIC TAB PO SCH (09:23)
[2017-04-12] MEDS: MOM 30ML SUSPENSION UDC PO SCH (09:23)
--- NOTE | 2017-04-12 11:07 | IPNPDOC ---
Subjective Date Seen The patient was seen on 04/12/17. Subjective Chief Complaint/HPI The patient is a 82-year-old male admitted with a reason for visit of Pneumonia , Shortness Of Breath. Events since last encounter patient feeling better wants to go home, has been successfully weaned off oxygen , no further SOb or chest pain , had about 500 ml negative balance yesterday. no fever or chills, cough improving, no nausea or vomiting or diarrhea Objective Physical Examination General Exam: Positive: Alert, Cooperative, No Acute Distress Eye Exam: Positive: PERRLA, Conjunctiva & lids normal, EOMI, Negative: Sclera icteric ENT Exam: Positive: Atraumatic, Mucous membr. moist/pink, Pharynx Normal Neck Exam: Positive: Supple, Negative: JVD, thyromegaly Chest Exam: Positive: Rales, Diminished Heart Exam: Positive: Rate Normal, Regular Rhythm, Normal S1, Normal S2, Negative: Murmurs, Rubs Telemetry: Positive: No significant arrhythmia Abdomen Exam: Positive: Normal bowel sounds, Soft, Other (ascitis present), Negative: Tenderness, Hepatospenomegaly Extremity Exam: Positive: Normal pulses, Negative: Clubbing, Cyanosis, Edema Assessment /Plan Problems (1) Chronic systolic (congestive) heart failure Status: Acute Response to Treatment: Stable Problem Text: acute exacerbation of chronic systolic CHF echo now shows EF of 20% down from 30% , will severe pulmonary hypertension and right heart failure. will consult cardiology continue dobutamine and lasix (2) CKD (chronic kidney disease) Status: Chronic Response to Treatment: Improving Problem Text: Quintin on ckd stage 4 due to age, advanced heart failure and vascular disease. creatinine now worse due to CHF exacerbation. (3) Pneumonia Status: Acute Problem Text: will continue with current antibiotics. day #4 of ceftriaxone. (4) Cirrhosis Status: Chronic Problem Text: due to alcohol abuse has history of hepatorenal syndrome, recurrent ascites No ascitis now , (5) COPD (chronic obstructive pulmonary disease) Status: Chronic Problem Text: has interstitial fibrosis will continue with nebs (6) Hypercholesterolemia Status: Chronic (7) HTN (hypertension) Status: Chronic Problem Text: at present low bp due to advanced systolic chf and cirrhosis. 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 (13) Lactic acidosis Status: Acute Problem Text: possibly due to SOB and increased work of breathing and chronic liver disease and chf exacerbation Plan/VTE VTE Prophylaxis Ordered?: Yes Plan/Urinary Catheter Reason for insertion/continuin: Critical Pt monitoring VS, I&O, 24H, Fishbone Vital Signs/I&O Vital Signs Date Time Temp Pulse Resp B/P (MAP) Pulse Ox O2 Delivery O2 Flow Rate FiO2 04/12/17 09:00 80 98/60 04/12/17 08:16 Nasal Cannula 1.0 04/12/17 08:00 97.7 52 98 I&O- Last 24 Hours up to 6 AM 04/12/17 06:00 Intake Total 1771.3 ml Output Total 2650 ml Balance -878.7 ml Laboratory Data 24H LABS Laboratory Tests 2 04/11/17 12:10: Blood Urea Nitrogen 81H, Creatinine 2.89H, Sodium Level 132L, Potassium Level 5.3H, Chloride Level 98, Carbon Dioxide Level 24, Anion Gap 10, Glomerular Filtration Rate 22.5L, Calcium Level 8.4L, Phosphorus Level 4.3, Albumin 3.3 04/12/17 05:30: Blood Urea Nitrogen 81H, Creatinine 2.71H, Sodium Level 133L, Potassium Level 5.3H, Chloride Level 97L, Carbon Dioxide Level 28, Anion Gap 8, Glomerular Filtration Rate 24.2L, Calcium Level 8.6L, Phosphorus Level 3.8, Albumin 3.3, Prothrombin Time 24.9H, Prothromb Time International Ratio 2.25 CBC/BMP Laboratory Tests 04/11/17 12:10 Anion Gap 10 04/12/17 05:30 Anion Gap 8, Red Blood Count 4.19 L, Mean Corpuscular Volume 96.7 H, Mean Corpuscular Hemoglobin 33.6 H, Mean Corpuscular Hemoglobin Concent 34.8, Red Cell Distribution Width 14.3 Microbiology Microbiology 04/09/17 Blood Culture - Preliminary, Resulted No Growth after 48 hours. All Specime... 04/09/17 Blood Culture - Preliminary, Resulted No Growth after 48 hours. All Specime... 04/10/17 Respiratory Virus Panel (PCR) ([facility]) - Final, Complete 04/10/17 Gram Stain - Final, Complete 04/10/17 Sputum Culture - Final, Complete RADHA CENTENO MD Apr 12, 2017 11:07
[2017-04-12] MEDS: SYMBICORT 160/4.5MCG INHALER 6GM INH SCH ×2 (11:25→20:48)
[2017-04-12] MEDS: TIOTROPIUM INHALER/CAPSULE (SPIRIVA) INH SCH (11:25)
[2017-04-12 11:27] VITALS: O2SAT 98
[2017-04-12 12:00] VITALS: BP 111/66
[2017-04-12 16:00] VITALS: BP 100/67
[2017-04-12] MEDS: WARFARIN SOD 2 MG TAB PO SCH (18:04)
--- NOTE | 2017-04-12 18:19 | IPN ---
DATE: 04/12/2017 SUBJECTIVE: The patient was seen and examined at the bedside today in the morning. He was actually sitting on the sofa. He continues to be on intravenous (IV) dobutamine drip. He has a good urine output at this time. He continues to be on IV Lasix injections. Renal function is slightly better today as compared with yesterday. Creatinine is down to 2.7 at this time. REVIEW OF SYSTEMS: The patient denies any fever, chills, rigors, headache, nausea, vomiting or chest pain. He reports his shortness of breath is getting better. He denies any pain in abdomen, constipation or diarrhea. The patient does report some leg cramps. The rest of the review of systems is negative. OBJECTIVE: VITAL SIGNS: Temperature is 97.7 degrees Fahrenheit, blood pressure is 98/60, pulse is 80, respiratory rate of 18, saturating 98% on room air. INTAKE/OUTPUT: Urine output recorded as 2.1 liters yesterday, 1 liter so far today since overnight. Weight on the bed scale is 93.2 kg. The patient is almost 500 mL negative fluid balance for the last 2 days. PHYSICAL EXAMINATION: GENERAL: The patient is awake, alert, oriented times three, sitting on the sofa, in no apparent distress. HEAD AND NECK EXAM: Extraocular muscles intact. Pupils equally round and reactive to light. Mucous membranes are moist. Neck is supple. There is moderately elevated jugular venous distention (JVD) at this time. CARDIOVASCULAR: S1, S2 with regular heart rate. No murmur, rub or gallop. RESPIRATORY: Decreased breath sounds at the bases and mild crepitations at the bases on deep inspiration. ABDOMEN: Abdomen is soft, positive bowel sounds, nontender. No ascites. No organomegaly. EXTREMITIES: No clubbing or cyanosis. Pulses are 2+. There is no edema of the bilateral lower extremities. CENTRAL NERVOUS SYSTEM: No focal neurological deficit. No asterixis. PSYCHIATRIC: Normal mood and affect. LAB REVIEW: CBC showed a WBC of 7.6, hemoglobin 14.1, platelets of 149. INR is 2.25. BMP showed sodium 133, potassium 5.3, chloride 97, bicarbonate 28, BUN 81, creatinine is 2.78 plus 2.8 yesterday. GFR is 24, calcium 8.6, phosphorus 3.8. CURRENT INPATIENT MEDICATIONS: The patient's medications were all reviewed by me. He continues to be on IV Rocephin, IV dobutamine drip and IV Lasix. There is no other change in the medications today as compared with yesterday. ASSESSMENT: An 82-year-old male with a past medical history of chronic kidney disease, stage III to early stage IV, baseline creatinine of around 2.2, history of cirrhosis, chronic systolic and diastolic congestive heart failure and chronic obstructive pulmonary disease (COPD), admitted at this time with fever and chills, along with acute kidney injury superimposed on chronic kidney disease and decompensated congestive heart failure. PLAN: 1. Acute kidney injury superimposed on chronic kidney disease stage IV. The patient's best baseline creatinine is around 2.2. The patient is currently in cardiorenal syndrome. He continues to be on IV dobutamine and Lasix injection. His creatinine is slowly trending down. It is 2.7 now. Continue the aggressive diuresis with Lasix 40 mg IV every 6 hours at this time. 2. Decompensated congestive heart failure. The patient has severely reduced left ventricular ejection fraction, which is around 20% on latest echo. He has a severely dilated right ventricle and right atrium as well with elevated central venous pressures. He continues to be on IV Lasix injection. The patient was seen by cardiology. We are awaiting the cardiology recommendations at this time. 3. Atrial fibrillation. Currently, heart rate is well controlled. Continue Coumadin and continue metoprolol at this time. 4. Hyponatremia. The patient has hypervolemic hyponatremia secondary to decompensated congestive heart failure. Sodium has improved to 133. Continue diuretics at this time. If sodium does not improve, the patient will be given one dose of Samsca to help improve the hyponatremia. 5. Hyperkalemia. It is secondary to acute renal failure. Potassium level is still slightly up. No need of Kayexalate administration at this time. I have decreased the potassium in the patient's diet. Continue the diuresis. 6. Elevated troponins. It is most likely stress-induced ischemia. Continue the aspirin at this time. The rest of the management is as per cardiology. 7. Hypocalcemia. The patient will be given another dose of calcium gluconate one gram IV today. The plan of care was discussed with the patient's son at the bedside. I explained the current condition, including severe congestive heart failure and reduced ejection fraction (EF) and guarded prognosis of this patient.
[2017-04-12 19:43] VITALS: BP 110/76
[2017-04-12] MEDS: cefTRIAXone SOD 1 GM in D5W MINI-BAG PLUS 50 ML IV SCH (21:24)
--- NOTE | 2017-04-12 22:14 | CR ---
DATE OF CONSULTATION: 04/12/2017 REFERRING PROVIDER: Holly Khanna MD PRIMARY PHYSICIAN: Dandy Coello MD PRIMARY GUEST SERVICE MANAGER: [facility]. STERILE PROCESSING TECH: Delmi Arreguin MD REASON FOR THE CONSULT: Heart failure. HISTORY OF PRESENT ILLNESS: 82-year-old male was admitted on 04/10/2017 with fever and cough, as well as increasing shortness of breath and pedal edema. He is being treated for pneumonia and decompensated congestive heart failure with left ventricular systolic dysfunction, acute on chronic. He does have a history of cardiomyopathy with moderately severe global left ventricular systolic dysfunction, but echocardiogram done this time during this hospital revealed left ventricular ejection fraction of 20%. He was given IV Lasix and developed deterioration in his kidney function and became hypotensive. For this reason, he was started on dobutamine and also on midodrine by nephrology. Cardiology consult was called for input. Mr. Dylon Mas was seen earlier this morning and this evening. He was sitting in a chair in no acute distress. He denies any chest pain and there is no report of bleeding, palpitations. There is no orthopnea reported. His kidney function seems to have improved. His blood pressure also has been stable. He has a cough, but no hematemesis reported. There is no focal manifestation. He has a past medical history as mentioned above, positive for left ventricular systolic dysfunction, aortic valve disease with a bioprosthetic aortic valve, atrial fibrillation that has been chronic and persistent, chronic obstructive pulmonary disease (COPD), obstructive sleep apnea, hyperlipidemia, hypothyroidism; and according to his chart, he also has a history of cirrhosis of the liver, as well as coronary artery disease. There is no history of cerebrovascular accident (CVA). He does have chronic kidney disease, stage III to stage IV. His past surgical history is positive for aortic valve replacement of bioprosthetic aortic valve in 2008, right knee replacement about 20 years ago, left lower extremity metal leland inserted in the , cataract extraction in 2009, carpal tunnel release in 2015 and left inguinal hernia repair in 2016. Carpal tunnel release in 2005. MEDICATION PRIOR TO COMING TO THE HOSPITAL: Bumex 0.5 mg by mouth in the evening and 1 mg by mouth in the morning, spironolactone 25 mg by mouth twice a day, Spiriva inhaler, Coumadin as directed by his primary, Milk of Magnesium as needed, metoprolol succinate 25 mg by mouth daily, levothyroxine 75 mcg by mouth daily, Symbicort 160/4.5 mcg via inhalation twice a day, aspirin 81 mg by mouth daily, ProAir 180 mcg two puffs four times a day, albuterol sulfate 2.5 mg four times a day as needed for shortness of breath and PreserVision multivitamins one capsule twice day. Current medications are Coumadin as directed, Lasix 40 mg IV every 6 hours, IV dobutamine, ceftriaxone 1 gram IV every 24 hours, aspirin 81 mg by mouth daily, Symbicort 160/4.5 mcg one puff twice a day, metoprolol succinate 25 mg by mouth daily, Milk of Magnesium 30 mL by mouth daily, Spiriva inhaler one inhalation daily, levothyroxine 75 mcg by mouth daily, albuterol nebulizer 2.5 mg every two hours as needed inhalation, Tylenol 650 mg every 4 hours as needed for pain and ondansetron 4 mg IV every 6 hours for nausea or vomiting. FAMILY HISTORY: Noncontributory. SOCIAL HISTORY: The patient currently does not smoke or drink alcohol. He lives with one of his daughters. He follows at the [facility] for [facility]ology. ADVANCED DIRECTIVES: Unknown. ALLERGIES: No known drug allergies. PHYSICAL EXAMINATION: The patient is alert and awake, in no acute distress and very pleasant. His last vital signs revealed a blood pressure of 100/67 with a pulse of that range between 50 to 80, respirations 18 to 20 and his maximum temperature is 97.8 degrees Fahrenheit with oxygen saturation of 96% to 98% on one liter nasal cannula. Yesterday, he had a negative fluid balance of 580 mL. His fluid balance today so far has been positive 391 mL. Examination of the head is normocephalic, atraumatic. Neck is supple with extended external jugular. The lungs reveal decreased breath sounds at the bases, but no wheezing. The heart examination revealed irregular heart sounds without gallops. The point of maximal impulse (PMI) is displaced inferiorly. There is no rub. Abdomen is soft, nontender. He was not evaluated for ascites. Extremities revealed no significant pedal edema. Neurological examination is negative for focal deficit. LABORATORY: Complete blood count (CBC) done today revealed a white blood count (WBC) of 7.6, hemoglobin 14.1, hematocrit 40.5 and platelets 149. Basic metabolic panel (BMP) revealed a sodium of 133, potassium 5.3, chloride 97, CO2 28, BUN 81, creatine 2.7, glomerular filtration rate (GFR) 24.2, fasting bl 119 and calcium 8.6. PT is 24.9 with INR of 2.25. Abdominal ultrasound done today and result is pending. A chest x-ray done on 04/09/2017 revealed cardiomegaly and interstitial fibrosis and blunting of the costophrenic angles were noted. Aorta is tortuous and calcified. Electrocardiogram (EKG) on 04/09/2017 revealed a regular rhythm that could be sinus in origin with IVCD, left axis deviation, right bundle branch block and possible prior inferior and anterolateral infarct. P waves were not well visualized and therefore could not rule out underlying atrial fibrillation. This was compared with prior electrocardiogram (EKG) on 02/09/2016. Heart rate was slower and heart rate was regular consistent with atrial fibrillation. No discernable P wave was noted. IMPRESSION: 82-year-old male with severe left ventricular systolic dysfunction consistent with dilated cardiomyopathy. According to the echocardiogram report from Dr. Griffin Hughes on 04/10/2017. Estimated left ventricular ejection fraction was 20%. The patient currently is on a beta june, than diuretics. He is on IV dobutamine. We cannot give him LANCE inhibitor or ARB in view of his kidney function. We also cannot give him hydralazine/long-acting nitro because of low blood pressure. I have talked with his daughter, Zarina, who is in charge of him; and at this point in time, we cannot add any medication to the beta june for his underlying cardiomyopathy. I do not his overall prognostic. The other alternative will be to have a biventricular pacemaker. His cardiac condition and his symptoms might improve. He probably does not need an automatic implantable cardioverted defibrillator (AICD), but will have to discuss that with his daughter. The patient in the past did well with the combination of Bumex and the spironolactone and it can be restarted upon discharge and the Bumex and the spironolactone can be increased as tolerated if his blood pressure remains stable. The spironolactone also will help with his underlying cardiomyopathy and heart failure. He is on that combination for his underlying cirrhosis of the liver. It was a pleasant to participate in the care of . Dylon Mas for his underlying cardiac condition. His prognosis overall seems to be guarded, but appears to be stable. I will ask Dr. Henry to see him over the weekend. Please do not hesitate to call if any questions. ADIEL
[2017-04-13] VITALS (7 sets, daily range): BP systolic 92–113; BP diastolic 56–71; O2SAT 96
[2017-04-13] MEDS: FUROSEMIDE 40 MG/4 ML VIAL (J1940) IV SCH ×5 (00:31→23:30)
[2017-04-13] MEDS: LEVOTHYROXINE 0.075 MG TAB (75 MCG) PO SCH (05:07)
[2017-04-13 05:43] LABS: RED CELL DISTRIBUTION WIDTH 14.1 % (11.5-14.5); WHITE BLOOD COUNT 7.5 K/mm3 (4.0-10.0)
[2017-04-13 05:49] LABS: INR 2.37
[2017-04-13 06:13] LABS: ALBUMIN 3.4 GM/DL (3.2-5.2); CALCIUM LEVEL 8.8 MG/DL (8.8-10.2); CREATININE FOR GFR 2.23 MG/DL (0.70-1.30); GLOMERULAR FILTRATION RATE 30.3 (>35); PHOSPHORUS LEVEL 3.2 MG/DL (2.5-4.9); POTASSIUM SERUM 4.7 MEQ/L (3.5-5.1)
[2017-04-13] MEDS: TIOTROPIUM INHALER/CAPSULE (SPIRIVA) INH SCH (07:53)
[2017-04-13] MEDS: SYMBICORT 160/4.5MCG INHALER 6GM INH SCH ×2 (07:53→20:12)
[2017-04-13] MEDS: MOM 30ML SUSPENSION UDC PO SCH (08:04)
[2017-04-13] MEDS: ASPIRIN 81 MG ENTERIC TAB PO SCH (08:04)
[2017-04-13] MEDS: METOPROLOL SUCC *XL* 25MG TAB (TopROL *XL*) PO SCH (08:05)
--- NOTE | 2017-04-13 10:09 | IPNPDOC ---
Subjective Date Seen The patient was seen on 04/13/17. Subjective Chief Complaint/HPI The patient is a 82-year-old male admitted with a reason for visit of Pneumonia , Shortness Of Breath. Events since last encounter no complaints this morning, denied any sob , denied any chest pain or cough , no fever or chills, no abdominal pain, nausea or vomiting. Objective Physical Examination General Exam: Positive: Alert, Cooperative, No Acute Distress Eye Exam: Positive: PERRLA, Conjunctiva & lids normal, EOMI, Negative: Sclera icteric ENT Exam: Positive: Atraumatic, Mucous membr. moist/pink, Pharynx Normal Neck Exam: Positive: Supple, Negative: JVD, thyromegaly Chest Exam: Positive: Clear to auscultation, Normal air movement, Diminished ( at the bases) Heart Exam: Positive: Rate Normal, Irregular Rhythm, Normal S1, Normal S2, Negative: Murmurs, Rubs Telemetry: Positive: Atrial fibrillation (with either abberent conduction or underlying RBBB giving wide qrs complexes.), PVCs Abdomen Exam: Positive: Normal bowel sounds, Soft, Other (ascitis present), Negative: Tenderness, Hepatospenomegaly Extremity Exam: Positive: Normal pulses, Negative: Clubbing, Cyanosis, Edema Skin Exam: Positive: Nl turgor and temperature, Negative: Rash, Breakdown Assessment /Plan Problems (1) Chronic systolic (congestive) heart failure Status: Acute Response to Treatment: Stable Problem Text: acute exacerbation of chronic systolic CHF At present seems to be euvolemic . will possibly come of dobutamine and iv lasix today and can be then restarted on home regimen .Await final cardiology recommendation echo now shows EF of 20% down from 30% , will severe pulmonary hypertension and right heart failure. 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 creatinine now worse due to CHF exacerbation. (3) Pneumonia Status: Acute Problem Text: will continue with current antibiotics. day #5 of ceftriaxone. (4) Cirrhosis Status: Chronic Problem Text: due to alcohol abuse has history of hepatorenal syndrome, recurrent ascites No ascitis now , (5) COPD (chronic obstructive pulmonary disease) Status: Chronic Problem Text: has interstitial fibrosis will continue with nebs (6) Hypercholesterolemia Status: Chronic (7) HTN (hypertension) Status: Chronic Problem Text: at present low bp due to advanced systolic chf and cirrhosis. (8) A-fib Status: Chronic Problem Text: possibly with abberant conduction so has wide qrs complexes. rate controlled Has also RBBB so has wide qrs complexes. 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 (13) Lactic acidosis Status: Resolved Problem Text: possibly due to SOB and increased work of breathing and chronic liver disease and chf exacerbation Plan/VTE VTE Prophylaxis Ordered?: Yes Plan/Urinary Catheter Reason for insertion/continuin: Critical Pt monitoring VS, I&O, 24H, [facility] Vital Signs/I&O Vital Signs Date Time Temp Pulse Resp B/P (MAP) Pulse Ox O2 Delivery O2 Flow Rate FiO2 04/13/17 08:05 85 106/58 04/13/17 08:00 Room Air 04/13/17 07:55 96 04/13/17 03:00 98.1 18 04/12/17 16:00 1.0 I&O- Last 24 Hours up to 6 AM 04/13/17 06:00 Intake Total 1442.4 ml Output Total 1925 ml Balance -482.6 ml Laboratory Data 24H LABS Laboratory Tests 2 04/13/17 05:21: Prothrombin Time 26.0H, Prothromb Time International Ratio 2.37, Blood Urea Nitrogen 73H, Creatinine 2.23H, Sodium Level 135L, Potassium Level 4.7, Chloride Level 99, Carbon Dioxide Level 29, Anion Gap 7L, Glomerular Filtration Rate 30.3L, Lactic Acid Level 1.6, Calcium Level 8.8, Phosphorus Level 3.2, Total Creatine Kinase 65, Creatine Kinase MB 3.7H, Creatine Kinase MB Relative Index 5.69H, Troponin I 0.41H, Albumin 3.4 CBC/BMP Laboratory Tests 04/13/17 05:21 Red Blood Count 4.38, Mean Corpuscular Volume 97.0 H, Mean Corpuscular Hemoglobin 33.0, Mean Corpuscular Hemoglobin Concent 34.0, Red Cell Distribution Width 14.1, Anion Gap 7 L Microbiology Microbiology 04/09/17 Blood Culture - Preliminary, Resulted No Growth after 72 hours. All specime... 04/09/17 Blood Culture - Preliminary, Resulted No Growth after 72 hours. All specime... 04/10/17 Respiratory Virus Panel (PCR) ([facility]) - Final, Complete 04/10/17 Gram Stain - Final, Complete 04/10/17 Sputum Culture - Final, Complete RADHA CENTENO MD Apr 13, 2017 10:09
--- NOTE | 2017-04-13 12:28 | IPN ---
DATE: 04/13/2017 Mr. Mas tells me that he is feeling better. He feels that he is close to his baseline. He remains on IV dobutamine. Heart rate is usually from 50s to 70s, atrial fibrillation with frequent ventricular ectopy but no sustained ventricular tachycardia, as such. He is afebrile. Saturation 95% on room air. Fluid balance yesterday was about 1/2 liter negative. Weight is 91.9 kg. Jugular venous pressure is about 4 or 5 cm. Lungs reveal diminished breath sounds over both approximately thirds of right and left lung. Heart exam is irregularly irregular rhythm, widely paradoxically splitting second heart sound. Fairly quiet murmur at the apex. No gallop. Abdomen is soft. I do not appreciate any evidence for ascites based on physical exam. There is minimal peripheral edema. LABORATORY: CBC is normal. Basic metabolic panel: Potassium 4.7, BUN 73, creatinine 2.3 for GFR 30 and glucose 99. His BNP on presentation was 1290. ASSESSMENT AND PLAN: Mr. Mas is an 82-year-old man who has ischemic heart disease, history of single-vessel bypass surgery, chronic atrial fibrillation and mitral valve replacement who presents with exacerbated congestive heart failure. He was quite bradycardic on presentation and was started on dobutamine resulting in a reasonable diuresis and his renal function improved. He is still volume overloaded, and I will continue dobutamine for another day together with his standing dose of Lasix. The marquis question is as to whether the patient should be considered for placement of biventricular pacemaker or defibrillator. He apparently was evaluated through the [facility] system and was felt not to be a candidate, but the condition has changed and at this point, especially if he remains bradycardiac, it should be considered. He has a very wide QRS complex even though it is more right bundle than left bundle branch type of complex. I still think that he might be considered a candidate. I also had a discussion with him and his daughter that we spent over 30 minutes discussing the pluses and minuses and also the advantage of defibrillator versus just pacemaker. At this point, he will consider his options. I am going [facility] and ultimately we will make a decision on Saturday. ADIEL
[2017-04-13] MEDS: WARFARIN SOD 4 MG TAB PO SCH (17:26)
[2017-04-13] MEDS: DOBUTamine HCL 500,000 MCG in APPROPRIATE DILUENT 1 EA IV SCH (17:26)
--- NOTE | 2017-04-13 19:54 | IPN ---
DATE: 04/13/2017 Mr. Mas is seen this morning on his bedside. His daughter is present in the room. The patient remains on intravenous (IV) dobutamine drip. He was admitted with decompensated congestive heart failure and has improved significantly with diuresis and dobutamine. PHYSICAL EXAMINATION: Temperature 97.9 degrees Fahrenheit, heart rate 86 per minute, respiratory rate 18 per minute, blood pressure 106/58 mm of mercury, and oxygen saturation 95% on room air. His head is atraumatic. Neck veins are not abnormally distended. Oral mucosa is somewhat dry. Nose and throat are unremarkable. Pupils are equal and reactive to light, and sclerae is anicteric. His neck veins are only mildly distended. Heart sounds are irregular in rhythm. Lungs with diminished breath sounds at lower one-third bilaterally. Abdomen: Soft and nontender. Bowel sounds are present. Extremities have no cyanosis or clubbing. Skin has no rash or ulcers. Neurologically he is awake, alert, and oriented times three. Today's labs show sodium level 135, potassium 4.7, BUN 73, creatinine 2.23. WBC count 7.5, hemoglobin 14.4, and hematocrit 42.5. PROBLEMS: 1. Acute kidney injury superimposed on chronic kidney disease. This was related to decompensated congestive heart failure and has improved down to almost baseline kidney function. At this point, he has no uremic symptoms, and electrolytes have improved. We will continue to monitor his kidney function on a daily basis. 2. Systolic congestive heart failure. The patient had bradycardia on admission. He is being treated with IV dobutamine and diuretic. We will continue to monitor his kidney function and aim for a gentle negative fluid balance. 3. Hyperkalemia. Potassium level has corrected and does not need any further intervention. 4. Hyponatremia. This is mild and improving. It is likely to improve further with diuresis. 5. Symptomatic bradycardia and need for pacemaker. The patient's daughter asked questions about pacemaker issues. I have advised to discuss with cardiology. I did talk to Dr. Henry and discussed with him. [facility] MEDICAL CENTERJustine
[2017-04-13] MEDS: cefTRIAXone SOD 1 GM in D5W MINI-BAG PLUS 50 ML IV SCH (21:11)
[2017-04-14] VITALS (7 sets, daily range): BP systolic 91–122; BP diastolic 55–72
[2017-04-14 05:17] LABS: MEAN CORPUSCULAR HEMOGLOBIN 32.1 pg (27.0-33.0); MEAN CORPUSCULAR VOLUME 97.1 fl (80.0-96.0); RED CELL DISTRIBUTION WIDTH 14.1 % (11.5-14.5)
[2017-04-14 05:31] LABS: INR 2.35
[2017-04-14 05:32] LABS: ALBUMIN 3.1 GM/DL (3.2-5.2); CALCIUM LEVEL 8.4 MG/DL (8.8-10.2); CREATININE FOR GFR 2.05 MG/DL (0.70-1.30); GLOMERULAR FILTRATION RATE 33.4 (>35); POTASSIUM SERUM 4.6 MEQ/L (3.5-5.1)
[2017-04-14] MEDS: LEVOTHYROXINE 0.075 MG TAB (75 MCG) PO SCH (06:24)
[2017-04-14] MEDS: FUROSEMIDE 40 MG/4 ML VIAL (J1940) IV SCH ×3 (06:27→17:47)
[2017-04-14] MEDS: TIOTROPIUM INHALER/CAPSULE (SPIRIVA) INH SCH (07:23)
[2017-04-14] MEDS: SYMBICORT 160/4.5MCG INHALER 6GM INH SCH ×2 (07:23→19:56)
[2017-04-14] MEDS: METOPROLOL SUCC *XL* 25MG TAB (TopROL *XL*) PO SCH (07:59)
[2017-04-14] MEDS: MOM 30ML SUSPENSION UDC PO SCH (08:02)
[2017-04-14] MEDS: ASPIRIN 81 MG ENTERIC TAB PO SCH (08:02)
--- NOTE | 2017-04-14 11:26 | IPNPDOC ---
Subjective Date Seen The patient was seen on 04/14/17. Subjective Chief Complaint/HPI The patient is a 82-year-old male admitted with a reason for visit of Pneumonia , Shortness Of Breath. Events since last encounter no complaints this am , no sob , no chest pain , no cough . no fever or chills, no nausea or vomiting or diarrhea. Objective Physical Examination General Exam: Positive: Alert, Cooperative, No Acute Distress Eye Exam: Positive: PERRLA, Conjunctiva & lids normal, EOMI, Negative: Sclera icteric ENT Exam: Positive: Atraumatic, Mucous membr. moist/pink, Pharynx Normal Neck Exam: Positive: Supple, Negative: JVD, thyromegaly Chest Exam: Positive: Clear to auscultation, Normal air movement, Diminished ( at the bases) Heart Exam: Positive: Rate Normal, Irregular Rhythm, Normal S1, Normal S2, Negative: Murmurs, Rubs Telemetry: Positive: Atrial fibrillation (with either abberent conduction or underlying RBBB giving wide qrs complexes.), PVCs Abdomen Exam: Positive: Normal bowel sounds, Soft, Other (ascitis present), Negative: Tenderness, Hepatospenomegaly Extremity Exam: Positive: Normal pulses, Negative: Clubbing, Cyanosis, Edema Skin Exam: Positive: Nl turgor and temperature, Negative: Rash, Breakdown Assessment /Plan Problems (1) Chronic systolic (congestive) heart failure Status: Acute Response to Treatment: Stable Problem Text: acute exacerbation of chronic systolic CHF At present seems to be euvolemic . will possibly come of dobutamine and iv lasix today and can be then restarted on home regimen .Await final cardiology recommendation echo now shows EF of 20% down from 30% , will severe pulmonary hypertension and right heart failure. 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 worsened due to chf exacerbation. now improved with lasix and dobutamine. baseline creatinine around 2.2 now better than baseline at 2.0 patient is euvolemic (3) Pneumonia Status: Acute Problem Text: finished day #5 of ceftriaxone. (4) Cirrhosis Status: Chronic Problem Text: due to alcohol abuse has history of hepatorenal syndrome, recurrent ascites No ascitis now , (5) COPD (chronic obstructive pulmonary disease) Status: Chronic Problem Text: has interstitial fibrosis will continue with nebs (6) Hypercholesterolemia Status: Chronic (7) HTN (hypertension) Status: Chronic Problem Text: at present low bp due to advanced systolic chf and cirrhosis. (8) A-fib Status: Chronic Problem Text: possibly with abberant conduction so has wide qrs complexes. rate controlled Has also RBBB so has wide qrs complexes. 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 (13) Lactic acidosis Status: Resolved Problem Text: possibly due to SOB and increased work of breathing and chronic liver disease and chf exacerbation (14) Hx of CABG Status: Chronic (15) CAD (coronary artery disease) Status: Chronic Plan/VTE VTE Prophylaxis Ordered?: Yes Plan/Urinary Catheter Reason for insertion/continuin: Critical Pt monitoring VS, I&O, 24H, [facility] Vital Signs/I&O Vital Signs Date Time Temp Pulse Resp B/P (MAP) Pulse Ox O2 Delivery O2 Flow Rate FiO2 04/14/17 08:00 97.9 57 19 91/55 (67) 98 Room Air 04/12/17 16:00 1.0 I&O- Last 24 Hours up to 6 AM 04/14/17 06:00 Intake Total 1002.4 ml Output Total 1850 ml Balance -847.6 ml Laboratory Data 24H LABS Laboratory Tests 2 04/14/17 04:31: Prothrombin Time 25.8H, Prothromb Time International Ratio 2.35, Blood Urea Nitrogen 69H, Creatinine 2.05H, Sodium Level 136, Potassium Level 4.6, Chloride Level 100, Carbon Dioxide Level 30, Anion Gap 6L, Glomerular Filtration Rate 33.4L, Calcium Level 8.4L, Phosphorus Level 3.0, Albumin 3.1L CBC/BMP Laboratory Tests 04/14/17 04:31 Red Blood Count 4.22 L, Mean Corpuscular Volume 97.1 H, Mean Corpuscular Hemoglobin 32.1, Mean Corpuscular Hemoglobin Concent 33.0, Red Cell Distribution Width 14.1, Anion Gap 6 L Microbiology Microbiology 04/09/17 Blood Culture - Preliminary, Resulted No Growth after 72 hours. All specime... 04/09/17 Blood Culture - Preliminary, Resulted No Growth after 72 hours. All specime... 04/10/17 Respiratory Virus Panel (PCR) (NA[facility]ID) - Final, Complete 04/10/17 Gram Stain - Final, Complete 04/10/17 Sputum Culture - Final, Complete RADHA CENTENO MD Apr 14, 2017 11:26
--- NOTE | 2017-04-14 11:28 | IPN ---
DATE: 04/14/2017 Mr. Mas is feeling a little bit better again today compared to yesterday. He had good night, was able to sleep without major difficulty. He denies any dyspnea at rest. Vital signs reveal blood pressure 91/55, heart rate in 60s and 70s. He is afebrile. Saturation is 98% on room air. Fluid balance yesterday was about a liter and 300 mL negative. Documented weight was 80 kg, which is certainly inaccurate. He is alert and oriented and appropriate when I talk to him. He is sitting in hospital bed, does not appear to be in any distress. His jugular venous pulse (JVP) does not appear elevated in sitting position. Lungs still reveal decreased breath sounds over both bases, but I do not appreciate any crackles or wheezing. Heart exam reveals somewhat muffled heart sounds but no gallop or rub is appreciated. There is a murmur at the apex not more than maybe 2/6 intensity. Abdomen is obese but soft and nontender. There is no significant peripheral edema and neurologically, he appears intact. LABORATORY DATA: Hemoglobin 13.5, hematocrit 41, platelet count 164,000. Basic metabolic panel: Potassium 4.6, BUN 69, creatinine 2.1, GFR 33 and glucose 98. Albumin is 3.1 and INR is 2.3. ASSESSMENT AND PLAN: Mr. Mas is an 82-year-old man who has chronic ischemic heart disease and ischemic cardiomyopathy. He presented with exacerbated congestive heart failure together with renal failure. An echocardiogram revealed severe LV systolic dysfunction. He was initially quite bradycardic but after administration of dobutamine in very small doses heart rate improved. He put out a lot of urine and he continues to have good urine output with simultaneous improvement in creatinine level. This is all encouraging. I had a discussion with him and his daughter yesterday about feasibility of biventricular pacemaker or defibrillator placement. [facility] and they found him not to be a candidate. Even though he does have more right bundle than left bundle branch block morphology, with his fairly bizarre QRS complexes his QRS width is very wide and consequently, I still think that he is a candidate. I am hoping that by tomorrow will receive some records from [place] and I will get in touch with his physician document control assistant who takes care of his cardiac issues there and then will make ultimate decision as to how to approach this from now on. I am going to hold his Coumadin tonight in expectation of procedure in next few days. I am also planning to discontinue his dobutamine this afternoon. Provided he should get bradycardic again, we will restart the medication.
[2017-04-14] MEDS: WARFARIN SOD 2 MG TAB PO SCH (17:48)
--- NOTE | 2017-04-14 20:15 | IPN ---
DATE: 04/14/2017 SUBJECTIVE: Mr. Mas is seen this morning on his bedside. He is feeling well and denies any dyspnea, chest pain, nausea or vomiting. Nursing staff reports that his dobutamine drip is going to be stopped at 4 p.m. PHYSICAL EXAMINATION: VITAL SIGNS: Temperature 97.9 degrees Fahrenheit, heart rate 86 per minute and respiratory rate 18 per minute. Blood pressure 92/58 mmHg and oxygen saturation 99% on room air. Intake and output records from yesterday showed total intake 1062 and output 2400. His weight is probably inaccurate. HEENT: Head is atraumatic. Ears, nose and throat are unremarkable. Oral mucosa is somewhat dry but without any thrush or ulcers. NECK: Neck veins are about 7-8 cm above sternal angle. HEART: Sounds are distant and regular. LUNGS: With diminished breath sounds and bilateral rales. ABDOMEN: Soft and nontender. Bowel sounds are normal. EXTREMITIES: No cyanosis or clubbing. SKIN: No rash or ulcers. NEUROLOGIC: He is awake, alert and oriented times three. LABORATORY DATA: Today's labs show WBC count 8.0, hemoglobin 13.5 and hematocrit 41.0. Platelets 164. Sodium 136 and potassium 4.6. BUN 69 and creatinine 2.05. PROBLEMS: 1. Acute kidney injury superimposed on chronic kidney disease. Kidney function has improved further. Electrolytes are within normal range. Renal profile will be checked again tomorrow morning. 2. Congestive heart failure. The patient is known to have systolic dysfunction. He is diuresing and will continue with current diuretic for now. We will maintain his [place] catheter and monitor urine output. Dobutamine drip is being stopped as per cardiology later today. 3. Hyponatremia. Sodium level has improved further and now it is normal. We will aim for a negative fluid balance in next 24 hours.
[2017-04-15] VITALS: BP 100/62
[2017-04-15] MEDS: FUROSEMIDE 40 MG/4 ML VIAL (J1940) IV SCH ×5 (00:26→23:58)
[2017-04-15 04:00] VITALS: BP 103/59
[2017-04-15 05:26] LABS: MEAN CORPUSCULAR HEMOGLOBIN 32.7 pg (27.0-33.0); MEAN CORPUSCULAR HGB CONC 33.8 g/dl (32.0-36.5); MEAN CORPUSCULAR VOLUME 96.9 fl (80.0-96.0); RED CELL DISTRIBUTION WIDTH 14.4 % (11.5-14.5); WHITE BLOOD COUNT 7.2 K/mm3 (4.0-10.0)
[2017-04-15 05:35] LABS: INR 2.39
[2017-04-15 05:46] LABS: ALBUMIN 3.2 GM/DL (3.2-5.2); CALCIUM LEVEL 8.6 MG/DL (8.8-10.2); CREATININE FOR GFR 1.97 MG/DL (0.70-1.30); PHOSPHORUS LEVEL 2.8 MG/DL (2.5-4.9); POTASSIUM SERUM 4.4 MEQ/L (3.5-5.1)
[2017-04-15] MEDS: LEVOTHYROXINE 0.075 MG TAB (75 MCG) PO SCH (05:48)
[2017-04-15] MEDS: SYMBICORT 160/4.5MCG INHALER 6GM INH SCH ×2 (07:11→20:32)
[2017-04-15] MEDS: TIOTROPIUM INHALER/CAPSULE (SPIRIVA) INH SCH (07:11)
[2017-04-15 08:00] VITALS: BP 102/68
[2017-04-15] MEDS: MOM 30ML SUSPENSION UDC PO SCH (08:58)
[2017-04-15] MEDS: ASPIRIN 81 MG ENTERIC TAB PO SCH (08:59)
[2017-04-15] MEDS: METOPROLOL SUCC *XL* 25MG TAB (TopROL *XL*) PO SCH (08:59)
--- NOTE | 2017-04-15 09:56 | ECGEPIP ---
Stationary ECG Study [facility] Test Date: 2017-04-15 Pat Name: ALEXANDRA BECKHAM Department: Room: [place] [address] Gender: M Neurological Surgeon: RAFAEL : 1935 Requested By: Donavon Henry Order Number: [id number] Reading MD: Griffin Melissa Measurements Intervals [place] Rate: 81 P: [place]: 0 QRS: 152 QRSD: 193 T: -5 QT: 454 QTc: 528 Interpretive Statements Atrial fibrillation with trigeminy Prolonged QTc RIGHT BUNDLE BRANCH BLOCK ANTEROLATERAL MYOCARDIAL INFARCTION, OF INDETERMINATE AGE Electronically Signed On 04-15-2017 9:56:01 EDT by Griffin Melissa
[2017-04-15 12:00] VITALS: BP 98/56
--- NOTE | 2017-04-15 13:38 | IPN ---
DATE OF VISIT: 04/15/2017 Mr. Mas is seen this morning on his bedside. He is feeling well and denies any dyspnea, chest pain, nausea, vomiting, fever, or chills. His son is present in the room. We discussed about his condition and options. The patient notified me that he has declined any defibrillator but would accept a pacemaker placement. 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 On physical examination, temperature 97.7 degrees Fahrenheit, heart rate 60 per minute, and respiratory rate 18 per minute. Blood pressure 102/68 mmHg and oxygen saturation 97% on room air. Intake and output records from yesterday show a negative fluid balance of about 1900 mL. His weight is recorded at 89.6 kg. His head is atraumatic. Ears, nose, and throat are unremarkable. Pupils are equal and reactive to light and sclerae anicteric. Neck is supple and jugular venous distention (JVD) is still elevated at about 8 cm above sternal angle. Heart sounds are irregular in rhythm. Lungs with diminished breath sounds and bibasilar rales. Abdomen: Soft and nontender and without a palpable organomegaly. Bowel sounds are normal. Extremities have no cyanosis or clubbing. Skin has no rash or ulcers. Neurologically, he is awake, alert, and oriented times three. Today's laboratories show WBC count 7.2, hemoglobin 13.4 and hematocrit 39.8. Platelets 176. Sodium 136 and potassium 4.4. BUN 67 and creatinine 1.97. Rest of his chemistry is essentially unchanged. PROBLEMS: 1. Decompensated systolic congestive heart failure. The patient has been off dobutamine since yesterday. He has diuresed very well and remains on intravenous (IV) Lasix. We will continue to aim for a negative fluid balance of about 1 liter per day as tolerated. At this point, cardiology is working for possible biventricular placement of permanent pacemaker. 2. Acute kidney injury superimposed on chronic kidney disease. This was related to congestive heart failure and has been improving as he is being diuresed. This is his best kidney function so far. Electrolytes are all within normal range. We will continue to monitor his kidney function on a daily basis. 3. Generalized weakness. The patient seems to be improving, and he reports that he is able to get up and walk to the bathroom without difficulty. 4. Hyponatremia. This has corrected, and no other intervention is indicated. He is being diuresed already, which is working.
--- NOTE | 2017-04-15 15:37 | IPNPDOC ---
Subjective Date Seen The patient was seen on 04/15/17. Subjective Chief Complaint/HPI The patient is a 82-year-old male admitted with a reason for visit of Pneumonia , Shortness Of Breath. Pulmonary: Denies: Dyspnea, Cough Cardiovascular: Denies: Chest Pain, Palpitations, Orthopnea, Paroxysmal Noc. Dyspnea, Lt Headedness Objective Physical Examination General Exam: Positive: Alert, Cooperative, No Acute Distress Eye Exam: Positive: PERRLA, Conjunctiva & lids normal, EOMI, Negative: Sclera icteric ENT Exam: Positive: Atraumatic, Mucous membr. moist/pink, Pharynx Normal Neck Exam: Positive: Supple, Negative: JVD, thyromegaly Chest Exam: Positive: Clear to auscultation, Normal air movement, Diminished ( at the bases) Heart Exam: Positive: Rate Normal, Irregular Rhythm, Normal S1, Normal S2, Negative: Murmurs, Rubs Telemetry: Positive: Atrial fibrillation (with either abberent conduction or underlying RBBB giving wide qrs complexes.), PVCs Abdomen Exam: Positive: Normal bowel sounds, Soft, Other (ascitis present), Negative: Tenderness, Hepatospenomegaly Extremity Exam: Positive: Normal pulses, Negative: Clubbing, Cyanosis, Edema Skin Exam: Positive: Nl turgor and temperature, Negative: Rash, Breakdown Assessment /Plan Problems (1) Bradycardia Problem Text: * will be scheduled for pacemaker placement in the next few days * bradycardia has improved slightly but pt is a candidate for BiV pacemaker (2) Chronic systolic (congestive) heart failure Status: Acute Response to Treatment: Stable Problem Text: acute exacerbation of chronic systolic CHF At present seems to be euvolemic . will possibly come of dobutamine and iv lasix today and can be then restarted on home regimen .Await final cardiology recommendation echo now shows EF of 20% down from 30% , will severe pulmonary hypertension and right heart failure. 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 worsened due to chf exacerbation. now improved with lasix and dobutamine. baseline creatinine around 2.2 now better than baseline at 2.0 patient is euvolemic (4) Pneumonia Status: Acute Problem Text: finished day #5 of ceftriaxone. (5) Cirrhosis Status: Chronic Problem Text: due to alcohol abuse has history of hepatorenal syndrome, recurrent ascites No ascitis now , (6) COPD (chronic obstructive pulmonary disease) Status: Chronic Problem Text: has interstitial fibrosis will continue with nebs (7) Hypercholesterolemia Status: Chronic (8) HTN (hypertension) Status: Chronic Problem Text: at present low bp due to advanced systolic chf and cirrhosis. (9) A-fib Status: Chronic Problem Text: possibly with abberant conduction so has wide qrs complexes. rate controlled Has also RBBB so has wide qrs complexes. 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 (14) Lactic acidosis Status: Resolved Problem Text: possibly due to SOB and increased work of breathing and chronic liver disease and chf exacerbation (15) Hx of CABG Status: Chronic (16) CAD (coronary artery disease) Status: Chronic Plan/VTE VTE Prophylaxis Ordered?: Yes Plan/Urinary Catheter Reason for insertion/continuin: Critical Pt monitoring VS, I&O, 24H, [facility] Vital Signs/I&O Vital Signs Date Time Temp Pulse Resp B/P (MAP) Pulse Ox O2 Delivery O2 Flow Rate FiO2 04/15/17 12:00 97.6 80 20 98/56 (70) 96 Room Air 04/12/17 16:00 1.0 I&O- Last 24 Hours up to 6 AM 04/15/17 06:00 Intake Total 665 ml Output Total 3375 ml Balance -2710 ml Laboratory Data 24H LABS Laboratory Tests 2 04/15/17 04:00: Prothrombin Time 26.1H, Prothromb Time International Ratio 2.39, Blood Urea Nitrogen 67H, Creatinine 1.97H, Sodium Level 136, Potassium Level 4.4, Chloride Level 99, Carbon Dioxide Level 28, Anion Gap 9, Glomerular Filtration Rate 35.0 , Calcium Level 8.6L, Phosphorus Level 2.8, Albumin 3.2 CBC/BMP Laboratory Tests 04/15/17 04:00 Red Blood Count 4.11 L, Mean Corpuscular Volume 96.9 H, Mean Corpuscular Hemoglobin 32.7, Mean Corpuscular Hemoglobin Concent 33.8, Red Cell Distribution Width 14.4, Anion Gap 9 Microbiology Microbiology 04/09/17 Blood Culture - Final, Complete NO GROWTH AFTER 5 DAYS 04/09/17 Blood Culture - Final, Complete NO GROWTH AFTER 5 DAYS 04/10/17 Respiratory Virus Panel (PCR) ([facility]) - Final, Complete 04/10/17 Gram Stain - Final, Complete 04/10/17 Sputum Culture - Final, Complete GIFTY KENYON DO Apr 15, 2017 15:37
[2017-04-15 16:00] VITALS: BP 100/62
[2017-04-15] MEDS: WARFARIN SOD 2 MG TAB PO SCH (17:59)
[2017-04-15 20:15] VITALS: BP 110/62
--- NOTE | 2017-04-15 20:31 | IPN ---
DATE: 04/15/2017 I saw Mr. Mas this morning and then again this afternoon. He is doing better in spite of discontinuation of dobutamine yesterday. He continues to have good urine output and his overall condition improved. He was able to ambulate today including stairs and tells me that he feels reasonably well doing so. He otherwise, vital signs this morning blood pressure was 102/68, heart rate in 60s. He is afebrile. Saturation 97% on room air. His fluid balance yesterday was about 1800 mL negative. Documented weight is 89.6 kg. He is alert and oriented and appropriate. Jugular venous pulse is only mildly elevated, maybe 2 cm above clavicle. Lungs are reasonably clear to auscultation. Heart examination reveals irregular rhythm with frequent ectopy. There is unchanged murmur. Abdomen is soft, nontender. There is no significant peripheral edema. Neurologically, he is intact. LABORATORY: Hemoglobin 13.4, hematocrit 39, platelet count 176,000. Basic metabolic panel reveals potassium 4.4, BUN 67, creatinine 1.94, GFR 35 and glucose 108. ASSESSMENT/PLAN: Mr. Mas is an 82-year-old man who has ischemic cardiomyopathy and presents with acutely exacerbated congestive heart failure. He responded favorably to administration of dobutamine and not only significantly diuresed, but also his heart rate improved and he feels overall better. There is still a tentative consideration about proceeding with implantable cardioverter defibrillator (ICD) pacemaker placement. I had a phone call with TERRY Card, who is his treating attending in [facility] cardiology department in [place]. He gave me a different story then the patient and his family. He apparently was evaluated for ICD placement last year in [facility] in [place] and he refused the procedure. I confronted the patient with the story today and it certainly differs from his understanding. He was under the impression that the procedure was not recommended. In any case, I think he deserves a second opinion and at his request, I plan to refer patient to Dr. Blaine Koenig, who is the health information tech in [facility] in [place], for consideration of pacemaker, possibly biventricular pacemaker placement, with consideration of ICD. Today, patient tells me that he is reluctant to proceed with ICD, but I still think that the biventricular device can be considered even though he is not a classical candidate with most favorable EKG morphology. Otherwise, I will continue his current management. Tentatively will switch him to oral diuretics tomorrow and I hope that he will be discharged home tomorrow as well.
[2017-04-16 00:14] VITALS: BP 125/84
[2017-04-16] MEDS ORDERED: SLF 3 ML SYR IV PRN (02:00)
[2017-04-16 04:47] VITALS: BP 101/56
[2017-04-16] MEDS: SLF 3 ML SYR IV SCH ×2 (06:09→14:00)
[2017-04-16] MEDS: LEVOTHYROXINE 0.075 MG TAB (75 MCG) PO SCH (06:09)
[2017-04-16] MEDS: FUROSEMIDE 40 MG/4 ML VIAL (J1940) IV SCH (06:15)
[2017-04-16 06:16] LABS: MEAN CORPUSCULAR HEMOGLOBIN 32.4 pg (27.0-33.0); MEAN CORPUSCULAR HGB CONC 33.7 g/dl (32.0-36.5); MEAN CORPUSCULAR VOLUME 96.3 fl (80.0-96.0); RED CELL DISTRIBUTION WIDTH 14.2 % (11.5-14.5); WHITE BLOOD COUNT 9.2 K/mm3 (4.0-10.0)
[2017-04-16 06:23] LABS: INR 2.14
[2017-04-16 06:38] LABS: ALBUMIN 3.2 GM/DL (3.2-5.2); CALCIUM LEVEL 8.5 MG/DL (8.8-10.2); CREATININE FOR GFR 1.94 MG/DL (0.70-1.30); GLOMERULAR FILTRATION RATE 35.6 (>35); PHOSPHORUS LEVEL 3.1 MG/DL (2.5-4.9); POTASSIUM SERUM 4.3 MEQ/L (3.5-5.1)
[2017-04-16 08:00] VITALS: BP 132/76
[2017-04-16] MEDS: ASPIRIN 81 MG ENTERIC TAB PO SCH (08:00)
[2017-04-16] MEDS: MOM 30ML SUSPENSION UDC PO SCH (08:00)
[2017-04-16 08:03] VITALS: BP 132/67
[2017-04-16] MEDS: METOPROLOL SUCC *XL* 25MG TAB (TopROL *XL*) PO SCH (08:03)
[2017-04-16] MEDS: SYMBICORT 160/4.5MCG INHALER 6GM INH SCH (08:39)
[2017-04-16] MEDS: TIOTROPIUM INHALER/CAPSULE (SPIRIVA) INH SCH (08:39)
--- NOTE | 2017-04-16 08:52 | IPN ---
DATE: 04/16/2017 Mr. Mas has had a good night. He continues to be in mostly sinus rhythm with very frequent ventricular ectopy. Heart rate has been in 70s and 80s. He is afebrile. Saturation is in the high 90s on room air. Blood pressure 132/67. His fluid balance yesterday was again negative about a liter and half. Documented weight is 88.8 kg, which is approximately 4 kg down from April 11. His JVP is only minimally elevated. Lungs are reasonably clear to auscultation. I would do not appreciate any wheezing or crackles. Heart exam reveals regular rhythm with frequent ectopy. The murmur is unchanged. Abdomen is soft, nontender. There is no peripheral edema. Laboratory orellana, hemoglobin is 13.6, hematocrit 40, platelet count 196,000. Basic metabolic panel potassium 4.3, BUN 65, creatinine 1.9, GFR 35 and glucose 100. ASSESSMENT/PLAN Mr. Mas is an 82-year-old man who has ischemic cardiomyopathy and presented with congestive heart failure. It is in the setting of chronic renal insufficiency that was acutely worsened. I had a discussion yesterday with TERRY Basilio who is his treating clinical statistical programmer in [facility] in [place]. He agrees that the patient should be seen by another machine stone polisher for consideration of pacemaker, possibly biventricular and/or automatic implantable cardioverter-defibrillator (AICD). I had a discussion with the patient yesterday on this topic and previously he and his daughter expressed desire to see Dr. Blaine Koenig [facility]. [facility] a [facility] and they should have an answer within a week. That would further decrease his cost going outside of [facility]. From my perspective I think he can be discharged on his prior diuretic dosing and I will contact Dr. Koenig with the hope to see the patient in the relatively near future. Otherwise, his chronic management remains with his prior physicians.
[2017-04-16] MEDS: BUMETANIDE 1 MG TAB PO SCH ×3 (09:00→17:20)
[2017-04-16] MEDS: SPIRONOLACTONE 25 MG TAB PO SCH ×2 (10:48→17:20)
[2017-04-16 12:00] VITALS: BP_SYST 166; BP_SYST 95; BP_DIAS 65; BP_DIAS 80
[2017-04-16] MEDS ORDERED: BUME1TA PO (15:08)
[2017-04-16] MEDS: WARFARIN SOD 4 MG TAB PO SCH (17:20)
--- NOTE | 2017-04-16 20:51 | IPN ---
DATE: 04/16/2017 Mr. Mas is seen this morning on his bedside. He is feeling well today and tells me that he is going home today. There has been no immediate arrangement for pacemaker placement and he reports the manager regional sales is discussing and talking to [facility] in [place] for approval for pacemaker. The patient denies any dyspnea, chest pain, nausea or vomiting. PHYSICAL EXAMINATION Temperature 97.8 degrees Fahrenheit, heart rate 88 per minute and respiratory rate 18 per minute. Blood pressure 132/67 mmHg and oxygen saturation 97% on room air. Intake and output records from yesterday showed total intake 1120 and output 2800. His head is atraumatic. Ears, nose and throat are unremarkable. Neck veins are still moderately distended. Neck is supple and without any thyroid enlargement. Heart sounds are irregular in rhythm. There is no pericardial friction rub. Lungs have diminished breath sounds and bibasilar rales. Abdomen is soft and nontender. Bowel sounds are normal. Extremities have no cyanosis or clubbing. Neurologically, he is awake, alert and oriented times three. Skin is without any rash or ulcers. Today's labs show WBC count 9.2, hemoglobin 13.6 and hematocrit 40.4. Platelets 196. Sodium 135, potassium 4.3. BUN 65 and creatinine 1.94. PROBLEMS: 1. Acute on chronic renal failure. Kidney function has improved and very close to his baseline function now. The patient has no uremic symptoms. 2. Acute on chronic congestive heart failure. His volume status has also improved significantly with dobutamine and IV Lasix. His weight is down to 88.8 kg while he weighed 93.2 kg on April 11. IV Lasix is being stopped, and the patient is being started on oral bumetanide 1 mg twice a day and spironolactone 25 mg twice a day, which will be continued as outpatient. The patient will also follow a fluid restriction of 1500 mL per day at home. 3. Hyponatremia. This is marginal and does not need any intervention. DISPOSITION: From renal standpoint, the patient can be discharged to home today, and he will follow up in my office in 2 weeks. Cardiology has already cleared him for discharge.
--- NOTE | 2017-04-18 09:48 | REP ---
Limited abdominal ultrasound for ascites: The study is presented to me for the first time today with a note stating there is no dictation in the voice bank . This is for reasons unknown to this examiner. Ultrasonography of all four quadrants of the abdomen is performed. No evidence of ascites is identified at this time. Signed by Espinoza Cardona MD 04/18/2017 09:39 A
--- NOTE | 2017-05-04 18:39 | DSES ---
DATE OF ADMISSION: 04/10/2017 DATE OF DISCHARGE: 04/16/2017 REASON FOR ADMISSION: Cough, fever. FINAL DIAGNOSES: 1. Bradycardia. 2. Chronic systolic congestive heart failure. 3. Chronic kidney disease. 4. Pneumonia. 5. Hepatic cirrhosis. 6. Chronic obstructive pulmonary disease. 7. Hyperlipidemia. 8. Hypertension. 9. Atrial fibrillation. 10. Heart valve replacement with bioprosthetic valve. 11. Hydronephrosis. 12. Interstitial pulmonary fibrosis. 13. Elevated troponin. 14. Lactic acidosis 15. History of coronary artery bypass graft. 16. Coronary artery disease. HISTORY OF PRESENT ILLNESS: The patient is an 89-year-old male with past medical history significant for systolic congestive heart failure who presented to the emergency room with 3 days of on and off chills associated with cough 2 weeks ago. The patient had dental extraction done in the office [facility] Afterward, the patient felt fine, and then over the last couple of days he has felt worsening chills and cough. Denied any changes in appetite. Denied any chest pressure, lightheadedness, or dizziness. The patient was admitted under hospitalist service. HOSPITAL COURSE: The patient was treated for community-acquired pneumonia with antibiotics. He was kept on telemetry due to tachycardia and questionable sepsis. The patient was also evaluated by Dr. Arreguin as well as Dr. Henry. Dr. Schwartz had an extensive discussion with the patient regarding his ischemic cardiomyopathy. He stated that the patient will need to be seen at the [facility] for another electrophysiology (EP) study and consideration of a pacemaker and possible biventricular pacemaker. Given his worsening renal insufficiency, Dr. Arreguin was following the patient for acute renal failure. Once the patient was stabilized he was discharged home. DISCHARGE INSTRUCTIONS: The patient was to followup at the [facility] with his inspector motor vehicles. He is to be referred to EP for pacemaker and possible defibrillator. He is to continue to followup with Dr. Arreguin. DIET: Cardiac diet. ACTIVITIES: As tolerated. DISCHARGE MEDICATIONS: Including: - Bumex 1 mg by mouth twice a day - albuterol as needed as needed for shortness of breath - aspirin 81 mg by mouth daily - Symbicort 60 mg one puff inhaled twice a day - Synthroid 75 mcg by mouth daily - metoprolol 25 mg by mouth daily - milk of magnesia 30 mL by mouth daily - spironolactone 25 mg by mouth twice a day - Spiriva one inhaled daily - vitamin D - Coumadin 2 and 4 mg alternating DISCHARGE CONDITION: Stable. The patient's overall prognosis is poor.
== END 2017-04-16 17:36 | disposition home or self-care (01) | DRG 291 ==
LOC: EDBD 21:29 → M ED 23:08 → M ED INP 04-10 01:04 → M PCU 04-10 02:01
PROVIDERS: ADMIT Internal Medicine; ATTEND Internal Medicine
DX: I13.0 Hypertensive heart and chronic kidney disease with heart failure and stage 1 through stage 4 chronic kidney disease, or unspecified chronic kidney disease (principal); J18.9 Pneumonia, unspecified organism; I50.23 Acute on chronic systolic (congestive) heart failure; J44.0 Chronic obstructive pulmonary disease with (acute) lower respiratory infection; N18.4 Chronic kidney disease, stage 4 (severe); E87.1 Hypo-osmolality and hyponatremia; E87.2 Acidosis; N13.30 Unspecified hydronephrosis; N17.9 Acute kidney failure, unspecified; I25.5 Ischemic cardiomyopathy; I48.91 Unspecified atrial fibrillation; I25.10 Atherosclerotic heart disease of native coronary artery without angina pectoris; E78.5 Hyperlipidemia, unspecified; J84.10 Pulmonary fibrosis, unspecified; K70.30 Alcoholic cirrhosis of liver without ascites; Z79.899 Other long term (current) drug therapy; Z79.82 Long term (current) use of aspirin; Z79.01 Long term (current) use of anticoagulants; G47.33 Obstructive sleep apnea (adult) (pediatric); E03.9 Hypothyroidism, unspecified; Z87.891 Personal history of nicotine dependence; E87.5 Hyperkalemia; E83.51 Hypocalcemia; R74.8 Abnormal levels of other serum enzymes

== ENCOUNTER → 2017-04-09 | Outpatient (CLI) | payer MEDICARE ==
[~2017-04-09] MED LIST: /WARF5TA PO; ACET-654 PO; ALBU17IN INH; ALBU83IN INH; ALDA25TA2 PO; AMLO10TA2 PO; ASPI1TAB24 PO; ASPI325T PO; ASPI81TA85 PO; ASPI81TAEC PO; ATEN25TA PO; ATEN50TA2 PO; BUME0.5T PO; BUME1TA PO; CINN500T PO; COUM1TAB14 PO; COUM1TAB17 PO; COUM2.5T11 PO; COUM2TAB10 PO; DOCU100C PO; DRIS50002 PO; ECOT81TA5 PO; FISH100049 PO; FURO1TAB15 PO; FURO40TA2 PO; IBUP200T2 PO; K-TA10TA2 PO; KLOR10TA5 PO; LEVO50TA5 PO; LISI-542 PO; LOVE0.01 SQ; MAGN400C2 PO; METO25TA PO; METO25TA74 PO; METO25TAB PO; MILKSUS PO; MULT1TAB8 PO; NORC1TAB4 PO; OMEG10006 PO; PRED20TA PO; PRESCAP6 PO; PRIN10TA PO; PROA1AER IN; SIMV20TA2 PO; SIMV40TA2 PO; SPIRIVA INH; SYMB16INH INH; SYMB80AE INH; SYMB80INH INH; SYNT75TA PO; TIOT18INH INH; VITMTA PO; ZOCO20TA PO; ZOCO40TA PO
[2017-04-09 14:24] LABS: CALCIUM LEVEL 9.2 MG/DL (8.8-10.2); CREATININE FOR GFR 2.57 MG/DL (0.70-1.30); GLOMERULAR FILTRATION RATE 25.8 (>35)
--- NOTE | 2017-04-09 14:24 | REP ---
CHEST, TWO VIEWS: HISTORY: Cough. COMPARISON: 02/09/2016 Parenchymal densities are present in the lower lobes consistent with scarring. Bilateral calcified pleural plaques are present. There is blunting of the costophrenic angles due to pleural thickening or small pleural effusions. The cardiac silhouette is enlarged. The pulmonary vasculature is normal in appearance. The bony structure is intact. IMPRESSION: 1. Chronic interstitial fibrosis. 2. There is blunting of the costophrenic angles due to pleural thickening or small pleural effusions, 3. Cardiomegaly. Signed by Quang Yi MD 04/09/2017 02:25 P
[2017-04-09 14:25] LABS: POTASSIUM SERUM 5.2 MEQ/L (3.5-5.1)
== END ==
LOC: M LAB 12:42
PROVIDERS: ATTEND Family Medicine
DX: I51.7 Cardiomegaly (principal); J98.4 Other disorders of lung; R04.2 Hemoptysis; I50.9 Heart failure, unspecified

== ENCOUNTER 2017-07-23 03:03 | Inpatient (IN) | payer MEDICARE ==
[~2017-07-23] VITALS: Ht 177.8 cm; Wt 97.1 kg
[2017-07-23] VITALS (7 sets, daily range): BP systolic 107–110; BP diastolic 57–69; PULSE 55; O2SAT 99–100
[~2017-07-23 03:03] MED LIST changes: +ACET1TAB17 PO; +ASPI-161 PO; +BUME0.5T PO; +COUM1TAB14 PO; -COUM2.5T11 PO; +COUM2.5T17 PO; -COUM2TAB10 PO; +COUM2TAB22 PO; -DOCU100C PO; +DOCU100C16 PO; +DRIS50002 PO; -FURO1TAB15 PO; +FURO80TA2 PO; +METO1TAB32 PO; -METO25TA74 PO; -PROA1AER IN; +PROAAER10 IN
[2017-07-23 03:46] LABS: BASO % 0.8 % (0.0-1.0); EOS # 0.3 K/mm3 (0.0-0.50); LARGE UNSTAINED CELL # 0.2 K/mm3 (0.0-0.4); LARGE UNSTAINED CELL % 3.5 % (0.0-4.0); LYMPH # 0.7 K/mm3 (1.5-4.5); LYMPH % 12.5 % (24.0-44.0); MEAN CORPUSCULAR HEMOGLOBIN 31.8 pg (27.0-33.0); MEAN CORPUSCULAR HGB CONC 32.4 g/dl (32.0-36.5); MEAN CORPUSCULAR VOLUME 98.1 fl (80.0-96.0); MONO # 0.7 K/mm3 (0.0-0.8); MONO % 11.8 % (0.0-5.0); NEUTROPHILS # 3.9 K/mm3 (1.8-7.7); NEUTROPHILS % 66.5 % (36.0-66.0); PLATELET COUNT, AUTOMATED 147 k/mm3 (150-450); RED CELL DISTRIBUTION WIDTH 15.1 % (11.5-14.5); WHITE BLOOD COUNT 5.9 K/mm3 (4.0-10.0)
[2017-07-23 04:11] LABS: INR 4.02
[2017-07-23 04:15] LABS: CALCIUM LEVEL 8.6 MG/DL (8.8-10.2); CREATININE FOR GFR 2.91 MG/DL (0.70-1.30); GLOMERULAR FILTRATION RATE 22.3 (>35); POTASSIUM SERUM 4.8 MEQ/L (3.5-5.1)
[2017-07-23] MEDS ORDERED: ASPIRIN 325 MG TAB PO ONE (04:30)
[2017-07-23] MEDS ORDERED: MORPHINE 2 MG/ML 1ML SYRINGE IV ONE (05:45)
--- NOTE | 2017-07-23 06:06 | ECGEPIP ---
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
--- NOTE | 2017-07-23 07:54 | REP ---
Clinical: Cough. Comparison: 05/28/2017. Findings: Evidence for prior sternotomy, CABG, pacemaker and valve repair. Stable cardiomegaly and mid to lower lobe pleuroparenchymal changes. Superimposed acute infiltrates and small effusion cannot be excluded. No pneumothorax. Skeletal structures stable. Impression: Chronic stable changes. Cannot exclude subtle superimposed acute process. Signed by Morgan Christie MD 07/23/2017 07:46 A
[2017-07-23] MEDS: TIOTROPIUM INHALER/CAPSULE (SPIRIVA) INH SCH (08:00)
[2017-07-23] MEDS ORDERED: BUME1TA PO (08:20)
[2017-07-23] MEDS ORDERED: PRESCAP6 PO (08:20)
[2017-07-23] MEDS: SYMBICORT 160/4.5MCG INHALER 6GM INH SCH ×2 (09:00→20:44)
[2017-07-23] MEDS ORDERED: ACETAMINOPHEN TAB 650MG DOSE (2X325MG) PO PRN (09:30)
[2017-07-23] MEDS ORDERED: IPRATROPIUM 0.5MG/ALBUTEROL 2.5MG INH SOL UD 3ML (DUONEB)(J7620) NEB PRN (09:30)
[2017-07-23] MEDS: ONDANSETRON 4MG/2ML VIAL (J2405) IV PRN (09:33)
--- NOTE | 2017-07-23 09:43 | REP ---
CT CHEST WITHOUT CONTRAST: HISTORY: Question pneumonia. Comparison chest CT study is from December 31, 2015. Comparison chest x-ray is from earlier this date. CT FINDINGS: There is moderate to marked cardiomegaly again noted with pacemaker in place. Four-chamber dilation is seen. Aortic valve replacement is noted. Vascular calcification is observed. There are scattered normal-sized mediastinal lymph nodes which are unchanged. The cardiomegaly is essentially unchanged. There is extensive calcific pleural plaquing bilaterally. There is a small quantity of left pleural effusion. These pleural changes are stable when compared with the December 31, 2015 prior exam. There is upper abdominal ascites, which is mild and decreased when compared with the December 31, 2015 prior study. There is chronic bilateral lower lobe fibrosis and some chronic peribronchial thickening in the lower lobes bilaterally. No acute infiltrate is seen. No pulmonary mass or significant nodule is appreciated. No adrenal lesion is observed. There are gallstones visible in the gallbladder. There is a large cystic area in the right kidney which is unchanged. IMPRESSION: Extensive chronic pleuroparenchymal changes bilaterally which are stable. No acute infiltrate seen. Signed by Hector Gamboa MD 07/23/2017 02:13 P
[2017-07-23 11:25] LABS: THYROXINE (T4) 8.4 UG/DL (4.5-12.0)
[2017-07-23] MEDS: SPIRONOLACTONE 25 MG TAB PO SCH ×2 (11:34→18:23)
[2017-07-23] MEDS: SENOKOT S TAB PO SCH ×3 (11:35→21:34)
[2017-07-23] MEDS: PANTOPRAZOLE 40MG TAB (PROTONIX) PO SCH (11:35)
[2017-07-23] MEDS: MOM 30ML SUSPENSION UDC PO SCH (11:35)
[2017-07-23] MEDS: FUROSEMIDE injection 250 MG in D5W 225 ML IV SCH (11:37)
[2017-07-23] MEDS: LEVOTHYROXINE 75MCG TABLET (0.075MG) PO SCH (11:37)
[2017-07-23] MEDS: METOPROLOL TART 12.5 MG PER 1/2 TAB PO SCH ×2 (11:58→21:33)
--- NOTE | 2017-07-23 12:56 | REP ---
Clinical: Acute on chronic renal disease. Technique: Real time bee scale ultrasound examination using curved array transducer. Comparison: 01/04/2016. Findings: The left kidney measures 10.5 x 5.8 x 6.1 cm and is normal in contour, size and echogenicity without hydronephrosis, nephrolithiasis, cystic or mass lesion. The right kidney is relatively normal in reniform shape and echogenicity and includes a 7.3 x 4.9 x 5.4 cm stable lower pole cyst. Kidney measures 10.8 x 6.2 x 6.3 cm without evidence for hydronephrosis, nephrolithiasis or renal mass lesion. The bladder is incompletely distended and grossly unremarkable. Impression: No evidence for hydronephrosis. Stable 7.3 cm right renal cyst. Signed by Morgan Christie MD 07/23/2017 12:49 P
[2017-07-23 16:31] LABS: GLOMERULAR FILTRATION RATE 21.5 (>35); POTASSIUM SERUM 4.9 MEQ/L (3.5-5.1)
--- NOTE | 2017-07-23 16:31 | HPE ---
DATE OF ADMISSION: 07/23/2017 PRIMARY CARE PROVIDER: Dr. Dandy Coello PACK PRESS OPERATOR: Dr. Henry TAKER DOWN: Dr. Arreguin CHIEF COMPLAINT: Shortness of breath and chest pressure. HISTORY OF PRESENT ILLNESS: This is an 82-year-old male patient with underlying medical history of systolic congestive heart failure with ejection fraction of 30%, aortic stenosis with bioprosthetic aortic valve replacement, atrial fibrillation, on anticoagulation with Coumadin, alcoholic liver cirrhosis with history of hepatorenal syndrome, chronic kidney disease (CKD), stage IV, coronary artery disease, obstructive sleep apnea. Patient has not been using continuous positive airway pressure (CPAP). Dyslipidemia, hypothyroidism. Patient reported that for the past one week he has not been doing well with progressively worsening shortness of breath. Sleeps on two pillows at night. Denies any sick contacts. Over the course of last one day patient's condition worsened with worsening shortness of breath and cough. Overnight starting around 2 a.m. patient developed chest pressure and discomfort, about 4/10, that is persistent. Subsequently presented to the emergency room. Also reported for the past two days patient has been urinating less. Yesterday patient urinated about 1.5 liters. Over the last 24 hours only 1 liter. Patient is on 1500 mL fluid restriction at home. Reported substernal chest pressure, not radiating anywhere, with no relieving or exacerbating factor, improved with morphine in the emergency room. Patient was seen in the emergency room by foreign service teacher, Dr. Henry, who believes that the patient has acute congestive heart failure (CHF) exacerbation. Furthermore, patient has refused dialysis in the setting of CKD, stage IV. Catheterization would certainly put the patient into dialysis, and patient also came in with supratherapeutic INR with mild elevation of troponin. Decision was made for patient to be admitted for further diuresis. Patient denies any fevers or chills. Report of cough and shortness of breath. Denies any lower extremity swelling that is out of ordinary. Denies any nausea, vomiting, abdominal pain, diarrhea. Denies any diaphoresis. Baseline not on oxygen at home. ALLERGIES: No known drug allergies. PAST MEDICAL HISTORY: 1. Systolic CHF with ejection fraction (EF) of 30%, aortic valve replacement with bioprosthetic valve, atrial fibrillation, on anticoagulation, alcoholic liver cirrhosis with hepatorenal syndrome in the past. 2. Coronary artery disease. 3. Obstructive sleep apnea. Not compliant with CPAP at home. 4. Dyslipidemia. 5. Hypothyroidism. 6. History of alcohol abuse. PAST SURGICAL HISTORY: 1. Recent pacemaker placement. 2. Bioprosthetic valve replacement. 3. Aortic valve, 2008. 4. Right knee replacement 20 years ago. 5. Left lower extremity metal leland insertion in . 6. Cataract surgery 2009. 7. Carpal tunnel release, 2005. 8. Left inguinal hernia repair, 2016. SOCIAL HISTORY: Patient smokes cigars intermittently. He used to smoke a lot heavier. Is a former drinker. Has not been drinking for years. Lives with his daughter at home and also sees physicians at [facility] ([place]). FAMILY HISTORY: Noncontributory. REVIEW OF SYSTEMS: Report of chest pressure, shortness of breath, and cough, and generalized weakness. All other review of systems are negative. HOME MEDICATIONS: - ProAir inhalation four times a day as needed - albuterol nebulizer three times a day inhalation - aspirin 81 mg by mouth daily - Symbicort 160/4.5 inhalation twice a day - budesonide 1 mg by mouth twice a day - levothyroxine 75 mcg by mouth daily - metoprolol 25 mg by mouth daily - milk of magnesia 30 mL by mouth daily - PreserVision capsule by mouth twice a day - Aldactone 25 mg by mouth twice a day - Spiriva inhalation daily - vitamin D 50,000 weekly on Saturday - Coumadin 2 mg by mouth Saturday, Saturday, Saturday, Saturday and 4 mg by mouth Saturday, , Saturday PHYSICAL EXAMINATION: VITAL SIGNS: Temperature 97.3, pulse 60, respirations 18, blood pressure 110/69, pulse oximetry 99% on 2 liters nasal cannula GENERAL: Patient alert, comfortable in no acute distress. HEENT: Normocephalic, atraumatic. PULMONARY: Diminished breath sounds bilateral. CARDIAC: Regular. A 2/6 systolic murmur. ABDOMEN: Soft, nontender. Positive bowel sounds. EXTREMITIES: Trace edema, bilateral lower extremities. EKG: V paced. LABORATORY DATA: WBC 5.9, hemoglobin and hematocrit 13.4/41.3, platelets 147. Chemistry: Sodium 140, potassium 4.3, chloride 105, bicarbonate 27, BUN 85, creatinine 2.9. Troponin 0.14, 0.14. CT of the chest shows chronic pleural parenchymal changes bilateral that are stable. No acute infiltrates. ASSESSMENT AND PLAN: This is an 82-year-old male patient with underlying medical history of hypothyroidism, systolic congestive heart failure, ejection fraction 30%, aortic valve replacement with bioprosthetic valve, atrial fibrillation, on anticoagulation, alcoholic cirrhosis, chronic obstructive pulmonary disease (COPD), coronary artery disease, obstructive sleep apnea, not on CPAP, dyslipidemia, hypothyroidism, hepatorenal syndrome, chronic kidney disease (CKD), stage III, history of alcohol abuse, admitted for acute congestive heart failure (CHF) exacerbation. 1. Acute CHF exacerbation with systolic dysfunction, ejection fraction (EF) of 30%. Consulted cardiology. Trend cardiac enzymes. Telemetry monitoring. EKGs appreciated. Continue aspirin. Patient on Coumadin with supratherapeutic INR. Beta june with holding parameter. Lasix drip, spironolactone. Followup cardiology recommendations. Followup electrolytes. Strict intake and output, daily weight, fluid restriction, 1.5 liters. 2. Elevated troponin in the setting of CKD. Patient is a poor candidate for cardiac catheterization as per cardiology. Continue aspirin. Patient on supratherapeutic anticoagulation. Will trend cardiac enzymes. Telemetry monitoring. 3. CKD, stage IV, with mild elevation of creatinine from baseline. Nephrology has been consulted. Ultrasound renal appreciated. Followup urinalysis (UA). On Lasix drip. Possibly cardiorenal syndrome. Followup nephrology for recommendation. 4. Chest pain, likely secondary to CHF. CT scans appreciated. C-reactive protein appreciated. Followup cultures. Patient on Coumadin with supratherapeutic INR. Continue aspirin. 5. Hypothyroidism. Thyroid profile appreciated. Continue Synthroid. Need outpatient followup. 6. Atrial fibrillation. Patient currently ventricular paced. Continue beta june with holding parameters. Patient on anticoagulation, Coumadin. 7. Supratherapeutic INR. Holding Coumadin today. Restarting on lower dose tomorrow. 8. Chronic obstructive pulmonary disease (COPD). Continue home medication. Nebulizer treatment as needed. 9. Obstructive sleep apnea. Patient reported that patient's CPAP machine has been broken. Has not been using it. Obstructive sleep apnea (JOHN) protocol. Encourage outpatient followup to get the patient's CPAP fixed. 10. Deep vein thrombosis (DVT) prophylaxis. Patient has supratherapeutic INR. DISPOSITION: Patient with multiple comorbidities. Poor overall prognosis.
[2017-07-23 17:32] LABS: OSMOLALITY URINE 373 MOSM/KG (500-800)
--- NOTE | 2017-07-23 18:44 | CR ---
DATE OF CONSULTATION: 07/23/2017 REFERRING PHYSICIAN: Dr. Lazaro INDICATION: Chest discomfort. HISTORY OF PRESENT ILLNESS: Mr. Mas is known to me from his prior admission in April of this year but he is typically followed in the [facility] in [place]. He is an 82-year-old man who has a history of aortic valve replacement and reportedly single-vessel bypass surgery in 1998, he has known ischemic cardiomyopathy and chronic atrial fibrillation. Concomitantly he has known or at least suspected liver cirrhosis, chronic renal insufficiency, stage IV and underwent placement of biventricular pacemaker on 06/20/[address] Koenig in [facility] in [place]. He presented to [facility] ER because of relatively mild pressure-like discomfort behind his sternum that started yesterday evening. It lasted all night and he eventually decided to come to hospital. The initial ECG revealed paced rhythm, so it was nondiagnostic, but the cardiac troponin was marginally elevated at 0.14 and interventional cardiology [facility] was called for potential transfer. Because of his comorbidities and not convincing indication, I got a phone call from [place] and was asked to see the patient. On my evaluation in the ER the patient was telling me that the discomfort resolved after he received a single dose of morphine. He believes that he has not had similar kind of chest discomfort recently. He does admit that in the last week or so he has been unwell, he had chills, he has gained about 5-6 pounds of weight and has been more short of breath but he denies any PND, orthopnea. He believes that since he received the pacemaker he actually feels worse. He bitterly complains about profound tiredness and exertional intolerance. PAST MEDICAL HISTORY: 1. Aortic valve replacement with bioprosthesis in 1998 according to his significant other. He has simultaneously single-vessel bypass surgery but I do not have any records. The surgery was performed in [facility] in [place]. 2. History of chronic atrial fibrillation. 3. History of biventricular pacemaker placement on 06/20/2017. It is a [employer] device. 4. Chronic renal insufficiency, stage IV. 5. Suspected liver cirrhosis. 6. Hypothyroidism. 7. Obstructive sleep apnea with poor C-PAP compliance. 8. Dyslipidemia. 9. Congestive heart failure. Left ventricle ejection fraction was estimated approximately 30% based on echocardiogram from this facility from 4 months ago. SURGICAL HISTORY: Positive for pacemaker placement and open heart surgery as above. Right knee replacement, left garcia since surgery in approximately 1960s, bilateral cataract surgeries and inguinal hernia repair on the left side. SOCIAL HISTORY: Patient is still occasional cigar smoker. 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 He lives with his daughter and also his significant other who is very attentive. [facility] FAMILY HISTORY: No longer relevant. On the review of systems there is no history of stroke per say. His significant other denies any history of anuel encephalopathy. There is no history of bleeding problems. No nausea, vomiting or diarrhea. He has class 3-4 dyspnea at his baseline. He has occasional intermittent usually atypical left-sided chest discomfort. The type of discomfort he had last night is relatively new. He has intermittent peripheral edema. Denies any syncopal events per se. OUTPATIENT MEDICATIONS: Albuterol nebulizer as needed, aspirin 81 a day Symbicort twice a day budesonide 1 mg twice a day, levothyroxine 75 mcg a day, metoprolol succinate 25 mg a day, milk of magnesia as needed, Aldactone 25 twice a day, Spiriva, vitamin D, and Coumadin dosing. PHYSICAL EXAMINATION: Mr. Mas appears chronically but not acutely ill. During my evaluation in the morning his blood pressure was 99/53, heart rate is principally 60, it is atrial fibrillation with ventricular pacing. Saturation was in high 90s on 2 liters of oxygen by nasal cannula. Weight is documented 93.2 kg. He is alert and oriented times three, even though he appears slightly somnolent and his responses are somewhat delayed. His JVP is markedly elevated at least 6 or 7 cm above clavicle. Lungs reveal end inspiratory crackles throughout both lung goyal and both bases appear diminished. Heart exam regular rhythm. There is a systolic ejection murmur over the aortic valve but not more than 1 or 2 out of 6 intensity. I do not appreciate any gallop. Abdomen is soft. No shifting dullness. The liver does not appear enlarged but feels hard. I do not appreciate splenomegaly. Extremities revealed trace edema. Peripheral pulses are palpable but not of good quality. I would do not appreciate any atrophic defects. There is stasis dermatitis on both shins. I did not do any formal neurologic testing, but he moves all four extremities and most of his answers are completely appropriate. LABORATORY DATA: Basic metabolic panel potassium 4.8, BUN 85, creatinine 2.9, GFR 22 and glucose is 109. Troponin 0.14 with CK 81 and CK-MB 5.4. He had two additional sets of cardiac enzymes since and they are essentially unchanged. TSH is 8 and CRP is 1.0. CBC hemoglobin 13.4, hematocrit 41, platelet count 147,000 , INR is 4. ECG reveals presence of atrial fibrillation with biventricular pacing. There is relatively no QRS complex consistent with bi-lead pacing. Chest x-ray Reveals cardiomegaly and prior sternotomy placement of biventricular pacemaker in left subclavian pocket. There are fairly extensive pleuritic calcifications and there is probable effusion over the left base. ASSESSMENT/PLAN: Mr. Mas is an 82-year-old man who has ischemic cardiomyopathy with severe LV systolic dysfunction, chronic atrial fibrillation with biventricular pacemaker and concomitant severe renal insufficiency, stage IV. Currently he is in exacerbated state of CHF and simultaneously has chest discomfort that has some features of angina. I do not believe that the pain is typical and it is also unusual that after approximately 12 hours of discomfort, he has only very marginal troponin elevation (which actually has been present every single of his admissions). Consequently I do not believe that it is likely to be ischemic in nature. Simultaneously I had a discussion with him about his wishes. He clearly does not want to consider dialysis and I am afraid that administration of contrast in the current situation would very likely lead to full-blown renal failure. Consequently the plan would be to continue purely medical management. His INR is actually supra-therapeutic so I do not believe we should add any additional antiplatelet or anticoagulation medications. His heart rate is well-controlled. His blood pressure if anything is low. I agree with Dr. Lazaro and we will attempt to diurese the patient with fairly high doses of diuretics and will observe his clinical progress. He is certainly is chronically and severely ill and his prognosis is guarded at best. I will follow him with you. ADIEL
[2017-07-24] VITALS (8 sets, daily range): BP systolic 96–108; BP diastolic 51–65; O2SAT 100
[2017-07-24 05:49] LABS: MEAN CORPUSCULAR HEMOGLOBIN 31.4 pg (27.0-33.0); MEAN CORPUSCULAR VOLUME 95.2 fl (80.0-96.0); RED CELL DISTRIBUTION WIDTH 14.9 % (11.5-14.5); WHITE BLOOD COUNT 6.9 K/mm3 (4.0-10.0)
[2017-07-24 05:53] LABS: INR 3.98
[2017-07-24 06:09] LABS: ALBUMIN 3.3 GM/DL (3.2-5.2); ALBUMIN/GLOBULIN RATIO 0.89 (1.00-1.93); BILIRUBIN,TOTAL 1.1 MG/DL (0.2-1.0); CALCIUM LEVEL 8.3 MG/DL (8.8-10.2); CREATININE FOR GFR 2.93 MG/DL (0.70-1.30); GLOMERULAR FILTRATION RATE 22.1 (>35)
[2017-07-24 06:16] LABS: POTASSIUM SERUM 5.2 MEQ/L (3.5-5.1)
[2017-07-24] MEDS: LEVOTHYROXINE 75MCG TABLET (0.075MG) PO SCH (06:37)
[2017-07-24] MEDS: SYMBICORT 160/4.5MCG INHALER 6GM INH SCH ×2 (07:13→21:20)
[2017-07-24] MEDS: TIOTROPIUM INHALER/CAPSULE (SPIRIVA) INH SCH (07:13)
--- NOTE | 2017-07-24 08:00 | IPN ---
DATE: 07/24/2017 Mr. Mas tells me that he is feeling much better today. He was able to sleep. He has not had any recurrence of his chest discomfort and he believes that his dyspnea has improved significantly as well. Vital signs this morning reveal a blood pressure of 99/57, heart rate has been principally 60s. His is atrial fibrillation with ventricular paced rhythm. He is afebrile. Saturation is 100% on 2 liters of oxygen by nasal cannula. Fluid balance was only slightly negative yesterday about 325 mL. Weight is documented 94.3, which was actually higher than yesterday, but he is alert and oriented appropriate. His jugular venous pulse (JVP)is still high. Lungs reveal diminished breath sounds over both bases, I do not appreciate crackles or wheezing. Heart: Exam reveals regular rhythm. There is murmur over the aortic valve not more than maybe 2/6 intensity. I do not appreciate gallop. Abdomen is soft, nontender. There is trace peripheral edema. Neurologically he is intact even though he appears weak. LABORATORY DATA CBC as of this morning reveals hemoglobin 12.9, hematocrit 29, platelet count 138,000. Basic metabolic panel potassium 5.2, BUN 88, creatinine 2.9 and glucose 118. His troponin remained flat. There was no additional elevation. The second set was 0.14 and the third set was 0.13. ASSESSMENT/PLAN: Mr. Mas is a 82-year-old man who has advanced ischemic cardiomyopathy with severe systolic dysfunction. He presented with acute on chronic congestive heart failure in the setting of severe renal insufficiency, stage IV. Simultaneously he had chest discomfort. As far as the congestive heart failure is concerned, it is the principal problem. Unfortunately he cannot get any significant doses of vasodilating agents due to really low blood pressure. So far he has been responding somewhat to administration of furosemide, I would probably leave the dose unchanged today or potentially only slightly increase. Unfortunately the patient would not consider dialysis and consequently I am reluctant to give him additional second diuretic to promote diuresis. Otherwise I do not think there is much else to be offered, dobutamine can be considered as a temporizing measure but it has been shown to increased mortality and carries definite risks. As far as chest discomfort is concerned, his troponin was very marginally elevated, which is of unclear significance in setting of advanced renal insufficiency. I would not pursue any further evaluation in this matter.
[2017-07-24] MEDS: MOM 30ML SUSPENSION UDC PO SCH (08:34)
[2017-07-24] MEDS: SENOKOT S TAB PO SCH ×2 (08:35→20:50)
[2017-07-24] MEDS: PANTOPRAZOLE 40MG TAB (PROTONIX) PO SCH (08:35)
[2017-07-24] MEDS: METOPROLOL TART 12.5 MG PER 1/2 TAB PO SCH ×2 (08:35→20:49)
[2017-07-24] MEDS: ASPIRIN 81 MG ENTERIC TAB PO SCH (08:35)
--- NOTE | 2017-07-24 09:01 | ECHO ---
DATE OF PROCEDURE: 07/23/2017 REFERRING PHYSICIAN: Dr. Lazaro. INDICATION: Congestive heart failure. Suspicion for pericardial effusion. HEIGHT: 178 cm. WEIGHT: 93 kg. DIMENSIONS: IVS: 1.7 LV: 5.2 LVPW: 1.2 LA: 5.1 Aorta: 3.1 FINDINGS: The study is of fair technical quality. There are good parasternal views but really limited apical and subcostal views. Left ventricle is of normal size. There is global hypokinesis. I estimate ejection fraction (EF) around 25-30%. The right ventricle is dilated and hypokinetic. Both atria are severely enlarged. There is a pacemaker lead artifact apparent in right-sided chambers. There is a bioprosthesis in aortic position. It was poorly visualized. Mitral valve exhibits degenerative abnormalities with mitral annular calcifications and thickening of mitral leaflets. Mobility seems preserved. Tricuspid and pulmonic valves appear normal. No pericardial effusion is noted. Inferior vena cava is markedly dilated and there is no appreciable collapse with respiration indicative of very high central venous pressure. Aortic root is normal. Aortic arch and abdominal aorta were not well seen. Doppler interrogation reveals normal function of aortic prosthesis. Peak gradient was documented at only 10 mmHg. There is mild mitral insufficiency and at least moderate tricuspid insufficiency. Calculated pulmonary artery pressure is at least in high 40s which would correspond to moderate pulmonary hypertension. Pulmonic valve also exhibits mild insufficiency. Evaluation of diastolic function is inconclusive due to underlying atrial fibrillation. CONCLUSIONS: 1. Study is of fair technical quality. 2. Normal LV size with mild LVH and global hypokinesis, estimated LVEF around 25-30%. 3. Hypokinetic right ventricle. 4. Severe biatrial enlargement. 5. Grossly normal functioning bioprosthesis in aortic position. 6. Moderate tricuspid insufficiency. 7. Very high CVP. 8. At least moderate pulmonary hypertension. COMMENT: Subacute bacterial endocarditis (SBE) prophylaxis is recommended.
--- NOTE | 2017-07-24 11:21 | CR ---
DATE OF CONSULTATION: 07/24/2017 CONSULTATION FOR: Jamee Lazaro MD REASON FOR CONSULTATION: Acute renal failure superimposed on chronic kidney disease and congestive heart failure in this gentleman with multiple chronic medical problems. HISTORY OF PRESENT ILLNESS: Mr. Mas is an 82-year-old gentleman known to me from prior hospitalizations and office followup. He has multiple chronic medical problems, including severe cardiomyopathy with ejection fraction of 25% to 30%, chronic atrial fibrillation, stage IV of chronic kidney disease, and possible alcoholic cirrhosis. He was admitted to [facility] [place] with chest discomfort and was found to have decompensated congestive heart failure. He also had some chest pain, which was relieved with morphine. The patient has worsening kidney function. Nephrology consultation was requested yesterday. The patient is seen this morning in the progressive care unit. PAST MEDICAL AND SURGICAL HISTORY: Significant for: 1. History of aortic valve replacement in 1998. 2. History of coronary artery disease, status post single-vessel bypass surgery in 1998. 3. History of biventricular pacemaker placement on 06/20/2017. 4. History of chronic atrial fibrillation. 5. History of stage IV of chronic kidney disease. 6. History of possible alcoholic liver cirrhosis. 7. Hypothyroidism. 8. History of obstructive sleep apnea. 9. Dyslipidemia. 10. History of systolic congestive heart failure. MEDICATIONS: Current medications in the hospital include: - an intravenous (IV) Lasix drip - vitamin D 50,000 units once a week - Coumadin 3 mg daily - aspirin 81 mg daily - Zofran 4 mg as needed for nausea - DuoNebs 3 mL needed for dyspnea - Symbicort 160/4.5 mcg two puffs twice a day - metoprolol 12.5 mg twice a day - Senokot-S one tablet twice a day - Protonix 40 mg a day - levothyroxine 75 mcg daily - Spiriva HandiHaler once a day ALLERGIES: The patient has no known drug allergies. PERSONAL AND SOCIAL HISTORY: The patient has history of heavy alcohol use in the past. However, currently, he has been sober. He smokes a cigar occasionally. He lives with his significant other. FAMILY HISTORY: Is noncontributory. There is no family history for end-stage renal disease. REVIEW OF SYSTEMS: The patient denies any fever or chills. He is somewhat hard of hearing. The patient denies any sinus problems or nosebleed. He does feel lightheaded and dizzy. He also has chronic fatigue and weakness. Cardiovascular system is as per history of present illness. The patient has known history of ischemic cardiomyopathy with ejection fraction of 25% to 30% by recent echocardiogram. He had chest pain on admission, which has already resolved. His troponin was mildly elevated. Respiratory system is significant for cough without any hemoptysis or pleuritic type of chest pain. Gastrointestinal (GI) system is negative for nausea, vomiting, or diarrhea. Genitourinary () system is significant for decreased urine output. He reports that today his urine output has increased. Musculoskeletal system is significant for chronic fatigue and tiredness. He also had some leg edema recently. Skin is negative for rash or ulcers. Neurologically, he is awake, alert, and oriented times three. Laboratory data on admission showed WBC count 5.9, hemoglobin 13.4, and hematocrit 41.3. Sodium 139 and potassium 4.9. BUN was 88 and creatinine 3.0. Today's sodium is 137, potassium 5.2, chloride 104, CO2 25, BUN 88, and creatinine 2.93. Troponin was 0.014 and 0.013. TSH level was 7.99. Renal ultrasound done yesterday showed left kidney 10.5 cm and right kidney 10.8 cm in size without any hydronephrosis. Chest CT scan was done yesterday, which showed extensive chronic pleural parenchymal changes bilaterally without any acute infiltrate. Echocardiogram done during this admission again revealed left ventricular hypertrophy with global hypokinesis and ejection fraction of 25% to 30%. Very high central venous pressure, severe biatrial enlargement, and hypokinetic right ventricle. Grossly normal functioning bioprosthesis in the aortic position was noted. He had at least moderate pulmonary hypertension. PROBLEMS: 1. Acute renal failure superimposed on chronic kidney disease. Most likely, this is related to decompensated congestive heart failure. The patient does not have any uremic symptoms, and he is certainly does not wish dialysis. We anticipate that his kidney function will improve with diuresis. 2. Hyperkalemia, most likely related to acute and chronic kidney disease and joules of potassium-sparing diuretic. I will hold off spironolactone for now and continue with IV Lasix drip alone. Electrolytes will be checked again tomorrow morning. 3. Acute decompensated systolic congestive heart failure superimposed on chronic congestive heart failure. The patient is at least moderately decompensated, though he is lying in the bed comfortably. His volume status is still decompensated. The patient seems to be responding to IV Lasix drip with a negative fluid balance of about 700 mL so far. I would suggest to continue with fluid restriction of 1500 mL or less per day and monitor his urine output while continued with IV Lasix drip at current rate. I thank you for involving me in the care of Mr. Mas. I will follow him along with you.
[2017-07-24] MEDS: FUROSEMIDE injection 250 MG in D5W 225 ML IV SCH (12:05)
[2017-07-24] MEDS ORDERED: WARFARIN SOD 3 MG TAB PO SCH (17:00)
--- NOTE | 2017-07-24 19:06 | IPNPDOC ---
Text Note Date of Service The patient was seen on 07/24/17. NOTE No acute events overnight. Reported chest pain resolved. improved respiration, denied abd pain, fever, chill, palpitation. reported generalized weakness GENERAL: Patient alert, comfortable in no acute distress. HEENT: Normocephalic, atraumatic. PULMONARY: Diminished breath sounds bilateral. CARDIAC: Regular. A 2/6 systolic murmur. ABDOMEN: Soft, nontender. Positive bowel sounds. EXTREMITIES: Trace edema, bilateral lower extremities. ASSESSMENT AND PLAN: This is an 82-year-old male patient with underlying medical history of hypothyroidism, systolic congestive heart failure, ejection fraction 30%, aortic valve replacement with bioprosthetic valve, atrial fibrillation, on anticoagulation, alcoholic cirrhosis, chronic obstructive pulmonary disease (COPD), coronary artery disease, obstructive sleep apnea, not on CPAP, dyslipidemia, hypothyroidism, hepatorenal syndrome, chronic kidney disease (CKD) , stage III, history of alcohol abuse, admitted for acute congestive heart failure (CHF) exacerbation. 1. Acute CHF exacerbation with systolic dysfunction, ejection fraction (EF) of 30%. Consulted cardiology. ce x3 apreciated Telemetry monitoring. EKGs appreciated. Continue aspirin. Patient on Coumadin with supratherapeutic INR. Beta june with holding parameter. Lasix drip.. Followup cardiology recommendations. Followup electrolytes. Strict intake and output, daily weight, fluid restriction, 1.5 liters. Aldactone on hold 2/2 hyperkalemia TTE 2. Elevated troponin in the setting of CKD. Patient is a poor candidate for cardiac catheterization as per cardiology. Continue aspirin. Patient on supratherapeutic anticoagulation. Will trend cardiac enzymes. Telemetry monitoring. 3. CKD, stage IV, with mild elevation of creatinine from baseline. Nephrology has been consulted. Ultrasound renal appreciated. Followup urinalysis (UA). On Lasix drip. Possibly cardiorenal syndrome. Followup nephrology for recommendation. 4. Chest pain, likely secondary to CHF. CT scans appreciated. C-reactive protein appreciated. Followup cultures. Patient on Coumadin with supratherapeutic INR. Continue aspirin. TTE 5. Hypothyroidism. Thyroid profile appreciated. Continue Synthroid. Need outpatient followup. 6. Atrial fibrillation. Patient currently ventricular paced. Continue beta june with holding parameters. Patient on anticoagulation, Coumadin. 7. Supratherapeutic INR. Holding Coumadin today. Restarting on lower dose tomorrow. 8. Chronic obstructive pulmonary disease (COPD). Continue home medication. Nebulizer treatment as needed. 9. Obstructive sleep apnea. Patient reported that patient's CPAP machine has been broken. Has not been using it. Obstructive sleep apnea (JOHN) protocol. Encourage outpatient followup to get the patient's CPAP fixed. 10. Deep vein thrombosis (DVT) prophylaxis. Patient has supratherapeutic INR. DISPOSITION: Patient with multiple comorbidities. Poor overall prognosis. Advance care planning: MOLST form discussed, living will reviewed with patient and family. Full code until decision made. Time spent 35 Min VS,Fishbone, I+O VS, Fishbone, I+O Laboratory Tests 07/24/17 05:15 Red Blood Count 4.09 L, Mean Corpuscular Volume 95.2, Mean Corpuscular Hemoglobin 31.4, Mean Corpuscular Hemoglobin Concent 33.0, Red Cell Distribution Width 14.9 H, Calcium Level 8.3 L, Aspartate Amino Transf (AST/SGOT ) 19, Alanine Aminotransferase (ALT/SGPT) 21, Alkaline Phosphatase 133 H, Total Bilirubin 1.1 H, Total Protein 7.0, Albumin 3.3 Vital Signs Date Time Temp Pulse Resp B/P (MAP) Pulse Ox O2 Delivery O2 Flow Rate FiO2 07/24/17 16:00 97.5 68 20 98/51 (67) 96 Nasal Cannula 2.5 I&O- Last 24 Hours up to 6 AM 07/24/17 06:00 Intake Total 1410 ml Output Total 2225 ml Balance -815 ml TARYN BENTON MD Jul 24, 2017 19:06
[2017-07-25 03:51] VITALS: BP 102/59
[2017-07-25 05:30] LABS: MEAN CORPUSCULAR HEMOGLOBIN 31.1 pg (27.0-33.0); MEAN CORPUSCULAR HGB CONC 32.3 g/dl (32.0-36.5); MEAN CORPUSCULAR VOLUME 96.4 fl (80.0-96.0); WHITE BLOOD COUNT 7.1 K/mm3 (4.0-10.0)
[2017-07-25 05:38] LABS: INR 3.64
[2017-07-25 05:46] LABS: ALBUMIN 3.3 GM/DL (3.2-5.2); ALBUMIN/GLOBULIN RATIO 0.97 (1.00-1.93); BILIRUBIN,TOTAL 1.2 MG/DL (0.2-1.0); CALCIUM LEVEL 8.8 MG/DL (8.8-10.2); CREATININE FOR GFR 2.66 MG/DL (0.70-1.30); GLOMERULAR FILTRATION RATE 24.7 (>35); POTASSIUM SERUM 4.7 MEQ/L (3.5-5.1); TOTAL PROTEIN 6.7 GM/DL (6.4-8.2)
[2017-07-25] MEDS: LEVOTHYROXINE 75MCG TABLET (0.075MG) PO SCH (06:35)
[2017-07-25] MEDS: TIOTROPIUM INHALER/CAPSULE (SPIRIVA) INH SCH (07:16)
[2017-07-25] MEDS: SYMBICORT 160/4.5MCG INHALER 6GM INH SCH ×2 (07:17→20:02)
[2017-07-25 08:00] VITALS: BP 98/61
[2017-07-25] MEDS: SENOKOT S TAB PO SCH ×2 (08:25→20:39)
[2017-07-25] MEDS: MOM 30ML SUSPENSION UDC PO SCH (08:25)
[2017-07-25] MEDS: PANTOPRAZOLE 40MG TAB (PROTONIX) PO SCH (08:26)
[2017-07-25] MEDS: METOPROLOL TART 12.5 MG PER 1/2 TAB PO SCH ×3 (08:26→20:38)
[2017-07-25] MEDS: ASPIRIN 81 MG ENTERIC TAB PO SCH (08:26)
--- NOTE | 2017-07-25 08:56 | IPN ---
DATE: 07/25/2017 Mr. Mas complains about constipation, but he says that his shortness of breath is a little better. He is still very tired. He also did not get much sleep because he had to go to the bathroom a lot to urinate. But overall he feels that there has been some improvement. Blood pressure 98/61, heart rate has been in 70s, afebrile. Saturation 98% 2 liters of oxygen by nasal cannula. Fluid balance yesterday was about a liter negative. Weight is 92.2 kg. He is alert and oriented appropriate. His jugular venous pulse is still very high. Lungs are relatively clear but diminished breath sounds over bases. Heart exam reveals regular rhythm. I do not appreciate any gallop. Murmur is unchanged murmur. Abdomen: Soft, nontender. There is no significant edema. Neurologically he is weak but otherwise no focal signs. LABORATORY: Hemoglobin 12.7, hematocrit 39, platelet count 130,000. Basic metabolic panel: Potassium 4.7, BUN 87, creatinine 2.7, GFR 24 and glucose is 109. INR is 3.6 ASSESSMENT/PLAN: Mr. Mas is an 82-year-old man who has advanced cardiomyopathy, chronic atrial fibrillation, renal insufficiency and probably liver cirrhosis. He presented with atypical chest discomfort and had minimal troponin elevation of unclear significance. The pain has subsided and there has not been any change in his troponin, which was only marginally elevated. I do not foresee any further evaluation in this matter. The more pressing issue is that of congestive heart failure. Unfortunately, his blood pressure remains very low and consequently he cannot safely get any vasodilating agents. At this point we are trying to diurese him. So far thankfully his renal function is actually slightly improving while he is being diuresed, which is encouraging, but certainly there is a long way to go. He is adamant that he would not consider dialysis and consequently I am reluctant to institute a very aggressive diuretic regimen. I think the best served would be to continue current management. So far, we are moving in the right direction. Somewhat simultaneously we should be talking about his prognosis. He certainly has multiorgan failure and consequently his prognosis is guarded at best. I approach this topic with him when he was here several months ago but I think that the situation is somewhat changed today. I discussed the patient with Dr. Lazaro.
[2017-07-25] MEDS ORDERED: INFLUENZA VIRUS VACCINE HIGH DOSE 0.5 ML SYRINGE (90662) IM ONE (09:00)
[2017-07-25] MEDS: SPIRONOLACTONE 12.5MG PER 1/2 TABLET PO SCH (09:30)
[2017-07-25] MEDS: FUROSEMIDE injection 250 MG in D5W 225 ML IV SCH (10:08)
--- NOTE | 2017-07-25 10:11 | IPN ---
DATE: 07/25/2017 Mr. Mas is seen this morning on his bedside. He remains on IV Lasix drip. He reports improved dyspnea. The patient denies any chest pain, fever or chills. There is no nausea or vomiting. He reports that he is able to get up and walk to the bathroom without any difficulty. On physical exam, temperature 97.4 degrees Fahrenheit, heart rate 70 per minute and respiratory rate 18 per minute. Blood pressure 98/60 mmHg and oxygen saturation 98% on 2 liters oxygen. Intake and output records from yesterday show total intake 1560 and output 2625 with a negative balance of 1065 mL. His neck veins are still moderately distended. His head is atraumatic. Neck is supple and there is no thyroid enlargement. Trachea is midline. Heart sounds are regular with systolic murmur, grade 2/6. There is no pericardial friction rub. Lungs with moderate bilateral air entry. There are occasional rales at the bases. Abdomen is soft, nontender and bowel sounds are present. Extremities have no cyanosis or clubbing. Skin has no rash or ulcers. Neurologically he is awake, alert and oriented times three. Today's labs show WBC count 7.1, hemoglobin 12.7 and hematocrit 39.3. Sodium 139 and potassium 4.7. BUN 87 and creatinine 2.66. PROBLEMS: 1. Acute kidney injury superimposed on chronic kidney disease. Most likely cardiorenal problem related to congestive heart failure. Kidney function is improving as the patient is being diuresed. 2. Acute systolic congestive heart failure superimposed on chronic congestive heart failure. Volume status is improving nicely. The patient remains on IV Lasix drip with negative fluid balance of just over 1 liter yesterday. Will continue the IV Lasix for the next 24 hours. I am also going to add low-dose spironolactone 12.5 mg once a day. 3. Hyperkalemia, potassium level has corrected. Most likely this was related to acute renal failure and potassium sparing diuretic use. At present, we are starting only a low dose of spironolactone. Electrolytes will be checked again tomorrow morning. 4. Chest pain and elevated troponin. This was very marginal and the patient has no more chest pain. He remains stable hemodynamically with chronic borderline hypotension.
[2017-07-25 11:43] VITALS: BP 116/72
[2017-07-25] MEDS ORDERED: MAGNESIUM CITRATE 300 ML BTL PO ONE (13:00)
[2017-07-25] MEDS ORDERED: BISACODYL 10 MG SUPP PR ONE (13:00)
[2017-07-25 15:51] VITALS: BP 114/66
[2017-07-25] MEDS ORDERED: WARFARIN SOD 3 MG TAB PO SCH (17:00)
--- NOTE | 2017-07-25 17:27 | IPNPDOC ---
Text Note Date of Service The patient was seen on 07/25/17. NOTE No acute events overnight. improved respiration, denied chest pain, abd pain, fever, chill, palpitation. reported generalized weakness GENERAL: Patient alert, comfortable in no acute distress. HEENT: Normocephalic, atraumatic. PULMONARY: Diminished breath sounds bilateral. CARDIAC: Regular. A 2/6 systolic murmur. ABDOMEN: Soft, nontender. Positive bowel sounds. EXTREMITIES: Trace edema, bilateral lower extremities. ASSESSMENT AND PLAN: This is an 82-year-old male patient with underlying medical history of hypothyroidism, systolic congestive heart failure, ejection fraction 30%, aortic valve replacement with bioprosthetic valve, atrial fibrillation, on anticoagulation, alcoholic cirrhosis, chronic obstructive pulmonary disease (COPD), coronary artery disease, obstructive sleep apnea, not on CPAP, dyslipidemia, hypothyroidism, hepatorenal syndrome, chronic kidney disease (CKD) , stage III, history of alcohol abuse, admitted for acute congestive heart failure (CHF) exacerbation. 1. Acute CHF exacerbation with systolic dysfunction, ejection fraction (EF) of 30%. Consulted cardiology. ce x3 apreciated Telemetry monitoring. EKGs appreciated. Continue aspirin. Patient on Coumadin with supratherapeutic INR. Beta june with holding parameter. Lasix drip.. Followup cardiology recommendations. Followup electrolytes. Strict intake and output, daily weight, fluid restriction, 1.5 liters. restarting Aldactone 2. Elevated troponin in the setting of CKD. Patient is a poor candidate for cardiac catheterization as per cardiology. Continue aspirin. Patient on coumadin with supratherapeutic anticoagulation. Will trend cardiac enzymes. Telemetry monitoring. 3. CKD, stage IV, with mild elevation of creatinine from baseline. Nephrology has been consulted. Ultrasound renal appreciated. Followup urinalysis (UA). On Lasix drip. Possibly cardiorenal syndrome. Followup nephrology for recommendation. 4. Chest pain, likely secondary to CHF. CT scans appreciated. C-reactive protein appreciated. Followup cultures. Patient on Coumadin with supratherapeutic INR. Continue aspirin. TTE 5. Hypothyroidism. Thyroid profile appreciated. Continue Synthroid. Need outpatient followup. 6. Atrial fibrillation. Patient currently ventricular paced. Continue beta june with holding parameters. Patient on anticoagulation, Coumadin. 7. Supratherapeutic INR. Holding Coumadin today. Restarting on lower dose tomorrow. 8. Chronic obstructive pulmonary disease (COPD). Continue home medication. Nebulizer treatment as needed. 9. Obstructive sleep apnea. Patient reported that patient's CPAP machine has been broken. Has not been using it. Obstructive sleep apnea (JOHN) protocol. Encourage outpatient followup to get the patient's CPAP fixed. 10. Deep vein thrombosis (DVT) prophylaxis. Patient has supratherapeutic INR. DISPOSITION: Patient with multiple comorbidities. Poor overall prognosis. VS,Fishbone, I+O VS, Fishbone, I+O Laboratory Tests 07/25/17 05:06 Red Blood Count 4.08 L, Mean Corpuscular Volume 96.4 H, Mean Corpuscular Hemoglobin 31.1, Mean Corpuscular Hemoglobin Concent 32.3, Red Cell Distribution Width 15.0 H, Calcium Level 8.8, Aspartate Amino Transf (AST/SGOT) 19, Alanine Aminotransferase (ALT/SGPT) 22, Alkaline Phosphatase 128 H, Total Bilirubin 1.2 H, Total Protein 6.7, Albumin 3.3 Vital Signs Date Time Temp Pulse Resp B/P (MAP) Pulse Ox O2 Delivery O2 Flow Rate FiO2 07/25/17 16:11 Nasal Cannula 2.5 07/25/17 15:51 96.7 74 18 114/66 (15) 92 I&O- Last 24 Hours up to 6 AM 07/25/17 06:00 Intake Total 1680 ml Output Total 2525 ml Balance -845 ml TARYN BENTON MD Jul 25, 2017 17:27
[2017-07-25] MEDS: ONDANSETRON 4MG/2ML VIAL (J2405) IV PRN (19:17)
[2017-07-25 20:00] VITALS: BP 112/57
[2017-07-25 23:59] VITALS: BP 93/62
[2017-07-26 04:00] VITALS: BP 92/41
[2017-07-26 05:20] LABS: MEAN CORPUSCULAR HGB CONC 32.8 g/dl (32.0-36.5); MEAN CORPUSCULAR VOLUME 94.5 fl (80.0-96.0); WHITE BLOOD COUNT 8.6 K/mm3 (4.0-10.0)
[2017-07-26 05:25] LABS: INR 2.85
[2017-07-26 05:31] LABS: ALBUMIN 3.5 GM/DL (3.2-5.2); ALBUMIN/GLOBULIN RATIO 1.03 (1.00-1.93); BILIRUBIN,TOTAL 1.7 MG/DL (0.2-1.0); CALCIUM LEVEL 8.6 MG/DL (8.8-10.2); CREATININE FOR GFR 2.66 MG/DL (0.70-1.30); GLOMERULAR FILTRATION RATE 24.7 (>35); MAGNESIUM LEVEL 3.5 MG/DL (1.8-2.4); POTASSIUM SERUM 4.9 MEQ/L (3.5-5.1); TOTAL PROTEIN 6.9 GM/DL (6.4-8.2)
[2017-07-26] MEDS: LEVOTHYROXINE 75MCG TABLET (0.075MG) PO SCH (05:45)
[2017-07-26 07:45] VITALS: BP 118/72
[2017-07-26] MEDS: TIOTROPIUM INHALER/CAPSULE (SPIRIVA) INH SCH (07:57)
[2017-07-26] MEDS: SYMBICORT 160/4.5MCG INHALER 6GM INH SCH ×2 (07:58→20:04)
[2017-07-26] MEDS: SENOKOT S TAB PO SCH ×2 (09:00→21:00)
[2017-07-26] MEDS: MOM 30ML SUSPENSION UDC PO SCH (09:00)
[2017-07-26] MEDS: SPIRONOLACTONE 12.5MG PER 1/2 TABLET PO SCH (09:09)
[2017-07-26] MEDS: PANTOPRAZOLE 40MG TAB (PROTONIX) PO SCH (09:09)
[2017-07-26] MEDS: ASPIRIN 81 MG ENTERIC TAB PO SCH (09:10)
[2017-07-26] MEDS: METOPROLOL TART 12.5 MG PER 1/2 TAB PO SCH ×2 (09:10→21:59)
--- NOTE | 2017-07-26 09:42 | IPN ---
DATE: 07/26/2017 Mr. Mas has not been doing very well. He remains weak and tired looking. He needs assistance even with minimal ambulation. He denies much dyspnea. Denies any recurrence of chest discomfort. Started having bowel movements yesterday after he had received milk of magnesia for several days. Blood pressure this morning 92/41, heart rate has been from 60s to 80s, consistently ventricular paced rhythm. Saturation is in high 90s on 2 liters of oxygen by nasal cannula. Fluid balance yesterday was documented about 700 mL negative even though the weight reportedly has increased to 93.9 kg. He had two large bowel movements last night and continues to have diarrhea. His jugular venous pressure is still very high, even in sitting position I see a column of blood at least 5 cm above clavicle. Lungs are fairly clear to auscultation but the effort is poor but no crackles or wheezing are appreciated. There is still diminishment of sounds over both bases. Heart exam reveals regular rhythm. No gallop. Murmur is unchanged. Abdomen is soft, somewhat distended. I do not appreciate any shifting dullness though. Bowel sounds are certainly reactive. There is no significant peripheral edema. LABORATORY: Basic metabolic panel reveals potassium 4.9, BUN 81, creatinine 2.7, GFR is calculated at 25. His liver function tests reveal some elevation of bilirubin at 1.7 and his albumin is 3.5. CBC: Hemoglobin 12.5, hematocrit 37.9 and platelet count 158,000. ASSESSMENT AND PLAN: Mr. Mas is a 82-year-old man. His fluid status is still very tenuous and his central venous pressure is still very high. I think we should continue diuresis as per previous days' note, unfortunately, he probably cannot get any vasodilating substances because his blood pressure is just too low. I am hoping that the current diarrhea produced by several days of milk of magnesia will make him feel a little bit better. I think the fluid balance is probably actually more negative than stated because of this issue. As far as the arrhythmias is concerned, he is in atrial fibrillation with consistently biventricular paced. We will continue anticoagulation. His INR was 2.8 today. Otherwise, I do not have any additional recommendations. I have to repeat that his condition is certainly guarded at best on account of multiorgan problems.
--- NOTE | 2017-07-26 10:46 | IPN ---
DATE: 07/26/2017 Mr. Mas is seen this morning on his bedside. He has a bruise on his right lower eyelid. He feels that it is from straining for bowel movement. He denies any trauma. His dyspnea has improved. Patient denies any chest pain. There is no nausea or vomiting. On physical exam, temperature 97.5 degrees Fahrenheit, heart rate 98 per minute and respiratory rate 20 per minute. Blood pressure 118/72 mmHg and oxygen saturation 94% on room air. Intake and output records from yesterday showed total intake 1080 and output 1750. His head is atraumatic. Neck veins are still quite prominent. There is no oral thrush or ulcers. Ecchymosis on right lower eyelid is noticed. Heart sounds are irregular in rhythm. Lungs with moderate bilateral air entry. Abdomen soft and nontender. Bowel sounds are normal. Extremities have no cyanosis or clubbing. Skin has no rash or ulcers. Neurologically, he is awake, alert and oriented times three. Today's labs show WBC count 8.6, hemoglobin 12.5 and hematocrit 37.9. Sodium 139 and potassium 4.9. BUN 81 and creatinine 2.66. PROBLEMS: 1. Acute renal failure superimposed on chronic kidney disease. No change in kidney function over last 24 hours. His electrolytes are within normal range. Patient has no uremic symptoms and there is no indication for dialysis. 2. Acute systolic congestive heart failure superimposed on chronic congestive heart failure. Volume status is gradually improving. His symptoms have improved significantly. His intravenous (IV) Lasix drip will be stopped at 1 p.m. today and will start oral Bumex 1 mg twice a day. His spironolactone dose has been cut down to 12.5 mg daily at this point. 3. Hypotension. This is chronic and unchanged. At this point, we will continue to watch without any intervention. Should his blood pressure remain low or worsen, then we can consider low dose midodrine.
[2017-07-26] MEDS: FUROSEMIDE injection 250 MG in D5W 225 ML IV SCH (11:00)
[2017-07-26 11:50] VITALS: BP 102/68
--- NOTE | 2017-07-26 15:04 | IPNPDOC ---
Text Note Date of Service The patient was seen on 07/26/17. NOTE No acute events overnight. improved respiration, denied chest pain, abd pain, fever, chill, palpitation. reported generalized weakness. Made BM GENERAL: Patient alert, comfortable in no acute distress. HEENT: Normocephalic, atraumatic. right conjunctival hemorrhage after BM PULMONARY: Diminished breath sounds bilateral. CARDIAC: Regular. A 2/6 systolic murmur. ABDOMEN: Soft, nontender. Positive bowel sounds. EXTREMITIES: No edema, bilateral lower extremities. ASSESSMENT AND PLAN: This is an 82-year-old male patient with underlying medical history of hypothyroidism, systolic congestive heart failure, ejection fraction 30%, aortic valve replacement with bioprosthetic valve, atrial fibrillation, on anticoagulation, alcoholic cirrhosis, chronic obstructive pulmonary disease (COPD), coronary artery disease, obstructive sleep apnea, not on CPAP, dyslipidemia, hypothyroidism, hepatorenal syndrome, chronic kidney disease (CKD) , stage IV, history of alcohol abuse, admitted for acute congestive heart failure (CHF) exacerbation. 1. Acute CHF exacerbation with systolic dysfunction, ejection fraction (EF) of 30%. Consulted cardiology. ce x3 apreciated Telemetry monitoring. EKGs appreciated. Continue aspirin. Patient on Coumadin. Beta june with holding parameter. Lasix drip changed to Bumex. Followup cardiology recommendations. Followup electrolytes. Strict intake and output, daily weight, fluid restriction, 1.5 liters. restarting Aldactone 2. Elevated troponin in the setting of CKD. Patient is a poor candidate for cardiac catheterization as per cardiology. Continue aspirin. Patient on coumadin with supratherapeutic INR on admission. CEx3. Telemetry monitoring. 3. CKD, stage IV, with mild elevation of creatinine from baseline. Nephrology has been consulted. Ultrasound renal appreciated. Followup urinalysis (UA). On Lasix drip changed to Bumex. Possibly cardiorenal syndrome. Followup nephrology for recommendation. 4. Chest pain, likely secondary to CHF. CT scans appreciated. C-reactive protein appreciated. Followup cultures. Patient on Coumadin with supratherapeutic INR on admission. Continue aspirin. TTE 5. Hypothyroidism. Thyroid profile appreciated. Continue Synthroid. Need outpatient followup. 6. Atrial fibrillation. Patient currently ventricular paced. Continue beta june with holding parameters. Patient on anticoagulation, Coumadin. 7. Supratherapeutic INR. Restarting on lower dose today 8. Chronic obstructive pulmonary disease (COPD). Continue home medication. Nebulizer treatment as needed. 9. Obstructive sleep apnea. Patient reported that patient's CPAP machine has been broken. Has not been using it. Obstructive sleep apnea (JOHN) protocol. Encourage outpatient followup to get the patient's CPAP fixed. Constipation bowel med as prescribed 10. Deep vein thrombosis (DVT) prophylaxis. Patient has supratherapeutic INR. DISPOSITION: Patient with multiple comorbidities. Poor overall prognosis. PT VS,Fishbone, I+O VS, Fishbone, I+O Laboratory Tests 07/26/17 04:46 Red Blood Count 4.01 L, Mean Corpuscular Volume 94.5, Mean Corpuscular Hemoglobin 31.0, Mean Corpuscular Hemoglobin Concent 32.8, Red Cell Distribution Width 15.0 H, Calcium Level 8.6 L, Aspartate Amino Transf (AST/SGOT ) 19, Alanine Aminotransferase (ALT/SGPT) 23, Alkaline Phosphatase 138 H, Total Bilirubin 1.7 H, Total Protein 6.9, Albumin 3.5 Vital Signs Date Time Temp Pulse Resp B/P (MAP) Pulse Ox O2 Delivery O2 Flow Rate FiO2 07/26/17 11:50 97.3 94 20 102/68 (79) 95 Room Air 07/26/17 08:00 2.0 I&O- Last 24 Hours up to 6 AM 07/26/17 05:59 Intake Total 1080 ml Output Total 1450 ml Balance -370 ml TARYN BENTON MD Jul 26, 2017 15:04
[2017-07-26 16:00] VITALS: BP 97/62
[2017-07-26] MEDS: WARFARIN SOD 3 MG TAB PO SCH (16:42)
[2017-07-26 20:00] VITALS: BP 116/59
[2017-07-26] MEDS: BUMETANIDE 1 MG TAB PO SCH (21:59)
[2017-07-27] VITALS (7 sets, daily range): BP systolic 90–109; BP diastolic 57–72
[2017-07-27] MEDS: LEVOTHYROXINE 75MCG TABLET (0.075MG) PO SCH (05:34)
[2017-07-27 06:21] LABS: ALBUMIN 3.3 GM/DL (3.2-5.2); ALBUMIN/GLOBULIN RATIO 0.94 (1.00-1.93); BILIRUBIN,TOTAL 1.5 MG/DL (0.2-1.0); CALCIUM LEVEL 8.4 MG/DL (8.8-10.2); CREATININE FOR GFR 2.71 MG/DL (0.70-1.30); GLOMERULAR FILTRATION RATE 24.2 (>35); MAGNESIUM LEVEL 3.4 MG/DL (1.8-2.4); POTASSIUM SERUM 4.7 MEQ/L (3.5-5.1); TOTAL PROTEIN 6.8 GM/DL (6.4-8.2)
[2017-07-27 06:24] LABS: MEAN CORPUSCULAR HEMOGLOBIN 30.4 pg (27.0-33.0); MEAN CORPUSCULAR HGB CONC 31.6 g/dl (32.0-36.5); MEAN CORPUSCULAR VOLUME 96.2 fl (80.0-96.0); RED CELL DISTRIBUTION WIDTH 15.1 % (11.5-14.5); WHITE BLOOD COUNT 7.4 K/mm3 (4.0-10.0)
[2017-07-27 06:35] LABS: INR 2.3
[2017-07-27] MEDS: SYMBICORT 160/4.5MCG INHALER 6GM INH SCH ×2 (07:08→21:12)
[2017-07-27] MEDS: TIOTROPIUM INHALER/CAPSULE (SPIRIVA) INH SCH (07:08)
[2017-07-27] MEDS: SPIRONOLACTONE 12.5MG PER 1/2 TABLET PO SCH (07:55)
[2017-07-27] MEDS: ASPIRIN 81 MG ENTERIC TAB PO SCH (07:56)
[2017-07-27] MEDS: BUMETANIDE 1 MG TAB PO SCH (07:56)
[2017-07-27] MEDS: PANTOPRAZOLE 40MG TAB (PROTONIX) PO SCH (07:56)
[2017-07-27] MEDS: MOM 30ML SUSPENSION UDC PO SCH (07:57)
[2017-07-27] MEDS: METOPROLOL TART 12.5 MG PER 1/2 TAB PO SCH (07:57)
[2017-07-27] MEDS: SENOKOT S TAB PO SCH ×2 (07:58→20:52)
[2017-07-27] MEDS ORDERED: VITAMIN D 50,000 UNITS CAPSULE (ERGOCALCIFEROL 1.25MG) PO SCH (09:00)
--- NOTE | 2017-07-27 10:56 | IPN ---
DATE: 07/27/2017 Mr. Mas is feeling approximately the same as yesterday. He was able to sleep. He was able to ambulate around PCU with a walker much better than previous days. Denies any chest pain. Blood pressure 109/70. Heart rate has been mostly in 90s overnight. Saturation is 100% on 2-1/2 liters oxygen by nasal cannula. He is afebrile. Fluid balance yesterday was documented as 500 positive, but he had a lot of incontinence both urinary and bowel so it is probably not quite accurate. His JVP is about 2 or 3 cm above clavicle. Lungs are clear to auscultation. Air movement appears better compared to yesterday. Heart exam: Regular rhythm and no gallop. There is a murmur over the aortic valve not more than maybe 2/6 intensity. Abdomen is soft , nontender. There is no peripheral edema. Neurologically, he is intact even though he appears generally weak but no focal weakness. Laboratory data indicate hemoglobin 11.8, hematocrit 37. Basic metabolic panel; Potassium 4.7, BUN 84, creatinine 2.7, GFR 24, and glucose 117. Albumin is 3.3 and INR 2.3 ASSESSMENT AND PLAN: Mr. Mas is an 82-year-old man who has ischemic cardiomyopathy with history of aortic valve replacement and relatively recent placement of biventricular pacemaker. He came in with atypical chest discomfort associated with trivial troponin elevation. The discomfort resolved without specific intervention. His dominant problem though is acutely exacerbated systolic diastolic congestive heart failure. Unfortunately, it is further worsened by concomitant presence of advanced renal insufficiency, stage IV. At this point, he is probably close to his dry weight. The IV Lasix was discontinued yesterday and replaced by bumetanide. It looks like he is doing reasonably well. I interrogated his pacemaker today because he has some episodes of tachycardic ventricular pacing in 90s. Turns out that he is in sinus rhythm with biventricular pacing absolute majority of the time, and there were no episodes of atrial fibrillation. Consequently, I was wrong in my initial estimate. The P-waves are so indistinct on his ECG that it is difficult to recognize them, but this is certainly good news. I am going to change his twice a day metoprolol tartrate to once a day metoprolol succinate as evidence-based choice. Even though typically I would prefer carvedilol but, unfortunately, with very low blood pressure, metoprolol has typically less blood pressure lowering effect. There is a tentative plan for patient being discharged tomorrow which I think is realistic. I spoke with him and his significant other, and they are in agreement. ADIEL
[2017-07-27] MEDS ORDERED: BUMETANIDE 1 MG TAB PO ONE (11:15)
--- NOTE | 2017-07-27 14:41 | IPNPDOC ---
Text Note Date of Service The patient was seen on 07/27/17. NOTE No acute events overnight. improved respiration, denied chest pain, abd pain, fever, chill, palpitation. Reported urine output decreased after lasix drip changed to Bumex GENERAL: Patient alert, comfortable in no acute distress. HEENT: Normocephalic, atraumatic. right conjunctival hemorrhage after BM PULMONARY: Diminished breath sounds bilateral. CARDIAC: Regular. A 2/6 systolic murmur. ABDOMEN: Soft, nontender. Positive bowel sounds. EXTREMITIES: No edema, bilateral lower extremities. ASSESSMENT AND PLAN: This is an 82-year-old male patient with underlying medical history of hypothyroidism, systolic congestive heart failure, ejection fraction 30%, aortic valve replacement with bioprosthetic valve, atrial fibrillation, on anticoagulation, alcoholic cirrhosis, chronic obstructive pulmonary disease (COPD), coronary artery disease, obstructive sleep apnea, not on CPAP, dyslipidemia, hypothyroidism, hepatorenal syndrome, chronic kidney disease (CKD) , stage IV, history of alcohol abuse, admitted for acute congestive heart failure (CHF) exacerbation. 1. Acute CHF exacerbation with systolic dysfunction, ejection fraction (EF) of 30%. Consulted cardiology. ce x3 apreciated Telemetry monitoring. EKGs appreciated. Continue aspirin. Patient on Coumadin. Beta june with holding parameter. Lasix drip changed to Bumex. Bumex increased given decreased urine output. Followup cardiology recommendations. Followup electrolytes. Strict intake and output, daily weight, fluid restriction, 1.5 liters. c/w Aldactone 2. Elevated troponin in the setting of CKD. Patient is a poor candidate for cardiac catheterization as per cardiology. Continue aspirin. Patient on coumadin with supratherapeutic INR on admission. CEx3. Telemetry monitoring. 3. CKD, stage IV, with mild elevation of creatinine from baseline. Nephrology has been consulted. Ultrasound renal appreciated. Followup urinalysis (UA). On Lasix drip changed to Bumex. Bumex increased , Cardiorenal syndrome. Followup nephrology for recommendation. 4. Chest pain,-resolved, likely secondary to CHF. CT scans appreciated. C- reactive protein appreciated. Followup cultures. Patient on Coumadin with supratherapeutic INR on admission. Continue aspirin. TTE 5. Hypothyroidism. Thyroid profile appreciated. Continue Synthroid. Need outpatient followup. 6. Atrial fibrillation. Patient currently ventricular paced. Continue beta june with holding parameters. Patient on anticoagulation, Coumadin. 7. Supratherapeutic INR. Restarting coumadin on lower dose today 8. Chronic obstructive pulmonary disease (COPD). Continue home medication. Nebulizer treatment as needed. 9. Obstructive sleep apnea. Patient reported that patient's CPAP machine has been broken. Has not been using it. Obstructive sleep apnea (JOHN) protocol. Encourage outpatient followup to get the patient's CPAP fixed. 10, Constipation bowel med as prescribed, avoid milk of mag given elevated mag, avoid fleet enema 11. Deep vein thrombosis (DVT) prophylaxis. coumadin DISPOSITION: Patient with multiple comorbidities. Poor overall prognosis. PT VS,Fishbone, I+O VS, Fishbone, I+O Laboratory Tests 07/27/17 05:27 Red Blood Count 3.89 L, Mean Corpuscular Volume 96.2 H, Mean Corpuscular Hemoglobin 30.4, Mean Corpuscular Hemoglobin Concent 31.6 L, Red Cell Distribution Width 15.1 H, Calcium Level 8.4 L, Aspartate Amino Transf (AST/SGOT ) 15, Alanine Aminotransferase (ALT/SGPT) 21, Alkaline Phosphatase 141 H, Total Bilirubin 1.5 H, Total Protein 6.8, Albumin 3.3 Vital Signs Date Time Temp Pulse Resp B/P (MAP) Pulse Ox O2 Delivery O2 Flow Rate FiO2 07/27/17 12:00 98.0 95 18 106/72 (83) 95 Nasal Cannula 2.5 I&O- Last 24 Hours up to 6 AM 07/27/17 06:00 Intake Total 1440 ml Output Total 825 ml Balance 615 ml TARYN BENTON MD Jul 27, 2017 14:41
[2017-07-27] MEDS: WARFARIN SOD 3 MG TAB PO SCH (16:42)
--- NOTE | 2017-07-27 17:09 | IPN ---
DATE: 07/27/2017 SUBJECTIVE: Patient was seen and examined at the bedside today morning. His son and his girlfriend were also present at the bedside. The patient was started on Bumex tablets yesterday. His urine output is not significant. He made only 700 mL of urine yesterday. He is otherwise hemodynamically stable and there is a slight bump in his creatinine today as compared with yesterday. REVIEW OF SYSTEMS: The patient denies any fevers, chills, rigors, headaches. He denies any shortness of breath, pain abdomen or constipation. Rest of review of systems is negative. OBJECTIVE: VITAL SIGNS: Temperature is 97.7 degrees Fahrenheit, blood pressure is 109/70, pulse is 93, respiratory rate of 18, saturating 100% on room air. INTAKE AND OUTPUT: Urine output recorded as 725 mL yesterday, 200 mL so far today since overnight. Weight in the bed scale is 96.2 kg. PHYSICAL EXAMINATION: GENERAL: The patient is awake, alert, and oriented times three, sitting in the bed in no apparent distress. HEAD/NECK: Extraocular muscles intact. Pupils equal, round, and reactive to light. Mucous membranes are moist. Neck is supple. There is slightly elevated jugular venous distention (JVD). CARDIOVASCULAR: S1, S2. Irregularly irregular rate. No murmur, rub, or gallop. RESPIRATORY: Chest is clear to auscultation bilaterally, bilateral equal air entry. No rales or rhonchi. ABDOMEN: Soft. Positive bowel sounds. Nontender. No ascites. No organomegaly. MUSCULOSKELETAL: No clubbing or cyanosis. Pulses are 2+. He has trace edema on the bilateral lower extremities. 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 Power is 5/5 in all extremities. SKIN: The patient has multiple ecchymoses and bruises over the skin. PSYCHIATRIC: Normal mood and affect. LABORATORY DATA: CBC showed WBC 7.4, hemoglobin 11.8, platelets of 150. BMP showed sodium 135, potassium 4.7, chloride 99, bicarbonate 26, BUN 84, creatinine 2.7, it was 2.6 yesterday. Calcium 8.4, magnesium 3.4. Total bilirubin 1.5, alkaline phosphatase 141. Albumin 3.3. CURRENT INPATIENT MEDICATIONS: The patient's medications are all reviewed by me. His Lasix drip was stopped yesterday. He was started on Bumex 1 mg by mouth twice a day; however, I have increased his dose of Bumex to 2 mg in the morning and 1 mg in the evening. His metoprolol XL dose was changed to 25 mg at bedtime, and Lopressor was stopped. The patient was also on milk of magnesia which was stopped today morning because of hypermagnesemia, and I have stopped his spironolactone 12.5 mg and changed it to 25 mg by mouth daily starting tomorrow. No other change in the medications today. ASSESSMENT: An 82-year-old male with past medical history of congestive heart failure with reduced ejection fraction, admitted this time because of chest pain, decompensated systolic congestive heart failure and acute kidney injury superimposed on chronic kidney disease. PLAN: 1. Acute kidney injury superimposed on chronic kidney disease: Most likely cardiorenal in nature. Okay to continue the diuresis at this time. There is slight bump in the creatinine today as compared with yesterday; however, I will continue the aggressive diuresis at this time. I have increased the dose of diuretics. 2. Decompensated systolic congestive heart failure: The patient has reduced ejection fraction. He continues to be on beta june. Dose was changed by cardiology already. The patient is not on angiotension-converting enzyme (LANCE) inhibitors or angiotensin receptor blockers because of chronic kidney disease. He is on spironolactone. I have increased the spironolactone to 25 mg daily. Continue the Bumex, and I have actually increased the dose to Bumex 2 mg in the morning and 1 mg in the evening. Continue to monitor intake, output, and daily weight. Continue the fluid restriction at 1.2 liters daily. 3. Hyponatremia: Hyponatremia is likely secondary to positive fluid balance for the last two days. The patient is not having adequate urine output. Diuresis with higher dose of Bumex would help improve hyponatremia as well. 4. Hypermagnesemia: The patient was getting milk of magnesia daily because of constipation. That has caused hypermagnesemia and diuresis would also worsen his magnesium. Please avoid further milk of magnesia administration for constipation. If needed, the patient can be given lactulose. 5. Atrial fibrillation: Heart rate is controlled at this time. Continue beta june as per cardiology. The patient is on Coumadin. International normalized ratio (INR) is therapeutic at this time. Rest of the management is as per primary team. 6.Discharge planning: The patient will be monitored for another day for response to oral diuretics and he will probably be discharged in the next 24 hours.
[2017-07-27] MEDS: LACTULOSE 20 GM/30 ML SYRUP UD PO PRN (18:51)
[2017-07-27] MEDS: METOPROLOL SUCC *XL* 25MG TAB (TopROL *XL*) PO SCH (20:51)
[2017-07-27] MEDS ORDERED: BUMETANIDE 1 MG TAB PO SCH (21:00)
[2017-07-28] MEDS: ONDANSETRON 4MG/2ML VIAL (J2405) IV PRN (00:21)
[2017-07-28] MEDS: LACTULOSE 20 GM/30 ML SYRUP UD PO PRN ×2 (00:21→20:55)
[2017-07-28 03:40] VITALS: BP 109/59
[2017-07-28] MEDS: LEVOTHYROXINE 75MCG TABLET (0.075MG) PO SCH (05:47)
[2017-07-28 06:14] LABS: MEAN CORPUSCULAR HEMOGLOBIN 30.8 pg (27.0-33.0); MEAN CORPUSCULAR HGB CONC 32.9 g/dl (32.0-36.5); MEAN CORPUSCULAR VOLUME 93.6 fl (80.0-96.0); WHITE BLOOD COUNT 7.3 K/mm3 (4.0-10.0)
[2017-07-28 06:18] LABS: INR 2.33
[2017-07-28 06:31] LABS: ALBUMIN 3.1 GM/DL (3.2-5.2); ALBUMIN/GLOBULIN RATIO 0.86 (1.00-1.93); BILIRUBIN,TOTAL 1.3 MG/DL (0.2-1.0); CALCIUM LEVEL 8.5 MG/DL (8.8-10.2); CREATININE FOR GFR 3.03 MG/DL (0.70-1.30); GLOMERULAR FILTRATION RATE 21.3 (>35); MAGNESIUM LEVEL 3.4 MG/DL (1.8-2.4); TOTAL PROTEIN 6.7 GM/DL (6.4-8.2)
[2017-07-28] MEDS: TIOTROPIUM INHALER/CAPSULE (SPIRIVA) INH SCH (07:57)
[2017-07-28] MEDS: SYMBICORT 160/4.5MCG INHALER 6GM INH SCH ×2 (07:58→20:12)
[2017-07-28 08:00] VITALS: BP 114/56
[2017-07-28] MEDS ORDERED: BUMETANIDE 1 MG TAB PO SCH (09:00)
[2017-07-28] MEDS: SPIRONOLACTONE 25 MG TAB PO SCH (09:55)
[2017-07-28] MEDS: ASPIRIN 81 MG ENTERIC TAB PO SCH (09:55)
[2017-07-28] MEDS: SENOKOT S TAB PO SCH ×2 (09:55→20:53)
[2017-07-28] MEDS: PANTOPRAZOLE 40MG TAB (PROTONIX) PO SCH (09:55)
[2017-07-28 12:00] VITALS: BP 105/64
--- NOTE | 2017-07-28 12:40 | IPN ---
DATE: 07/28/2017 Mr. Mas had urinary obstruction this morning and even though he did not have any sensation of a full bladder or difficulty voiding he had postvoiding residual about 600 mL and a Hoyos catheter was placed. Hopefully, that the reason why his urine output has dropped. He otherwise feels well and is still inquiring about going home. Blood pressure is 114/56. Heart rate has been in the 50s to almost 90s. He is afebrile. Saturation is 95% on room air. Fluid balance yesterday unfortunately was positive about 900 mL. He is already negative about 1/2 liter today. Weight is 98.1 this morning. It is actually a considerable weight gain since admission , probably not an accurate reading though. He is alert and oriented. His jugular venous pulse (JVP) is still high. Lungs are relatively clear, even though both bases are diminished. No wheezing or crackles. Heart exam regular rhythm. I do not appreciate any gallop. Murmur is unchanged. Abdomen is distended, but soft. No evidence for shifting dullness. No peripheral edema. Neurologically, he appears chronically ill and weak, but otherwise intact. Basic metabolic panel: potassium 5, BUN 88 and creatinine 3.0 for GFR 21 and glucose 116. Albumin is 3.1. CBC: hemoglobin 12.3, hematocrit 37 and plate count 185,000. INR is 2.3. ASSESSMENT/PLAN: Mr. Mas is an 82-year-old man who has ischemic cardiomyopathy and history of aortic valve replacement with bioprosthesis. He has severe systolic/diastolic congestive heart failure that is currently exacerbated. There is concomitant renal insufficiency. After switching from IV Lasix to Bumex, his urine output dropped quite significantly. Today, he was found to have significant residual after voiding. Hopefully, urinary obstruction was a significant player because that certainly is fixable as opposed his other problems are not. From my perspective, I will not make any changes in his medications. His consistently low blood pressure precludes the use of vasodilating agents. I am slightly encouraged that he had good urine output after Hoyos placement, which certainly could indicate that he had low degree obstructive uropathy as a contributing factor that potentially could bring improvement in his overall status. ADIEL
--- NOTE | 2017-07-28 13:05 | IPN ---
DATE: 07/28/2017 SUBJECTIVE: Patient was seen and examined at the bedside today morning. The patient was reporting suprapubic discomfort and difficulty in urination. There is no improvement with the renal function today. There is a slight worsening of the creatinine today as compared with yesterday. The patient had very little urine output according to intake and output recorded yesterday. REVIEW OF SYSTEMS: Patient denies any fevers, chills, rigors, headaches, nausea, vomiting, chest pain, shortness of breath. He does report pain in the lower abdomen and he does report difficulty with urination. The rest of review of systems is negative. OBJECTIVE: VITAL SIGNS: Temperature is 97.4 degrees Fahrenheit, blood pressure is 114/56, pulse is 56, respiratory rate of 18, saturating 95% on room air. INTAKE AND OUTPUT: Urine output recorded as only 450 mL yesterday and 400 mL so far today since overnight. Weight on the bed scale is 98.1 kg. PHYSICAL EXAMINATION: GENERAL: The patient is awake, alert, and oriented times three, laying in bed in no apparent distress. HEAD/NECK EXAM: Extraocular muscles intact. Pupils equally round and reactive to light. Mucous membranes are moist. Neck is supple. There is no jugular venous distention (JVD). CARDIOVASCULAR: S1, S2. Irregularly irregular heart rate. No murmur, rub, or gallop. RESPIRATORY: Chest is clear to auscultation bilaterally, bilateral equal air entry. No rales or rhonchi. ABDOMEN: Soft. Positive bowel sounds. Slightly tender to palpation in the suprapubic region. The patient's bladder was also palpable in the suprapubic region. MUSCULOSKELETAL: No clubbing or cyanosis. Pulses are 2+. Trace edema of the bilateral lower extremities. 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 Power is 5/5 in all extremities. SKIN: The patient has multiple ecchymoses and bruises on the skin. PSYCHIATRIC: Normal mood and affect. LABORATORY REVIEW: CBC showed WBC 7.3, hemoglobin 12.3, platelets of 185. BMP showed sodium 135, potassium 5, chloride 99, bicarbonate 24, BUN 88, creatinine 3, it was 2.7 yesterday. Calcium 8.5, magnesium 3.4. Total bilirubin 1.3. Albumin is 3.1. Bedside bladder scan was done in my presence today and the patient had more than 500 of post void residual in the bladder. CURRENT INPATIENT MEDICATIONS: The patient's medications are all reviewed by me. I changed patient's diuretic dose to Bumex 1 mg by mouth twice a day and today morning dose of Bumex was held because patient was in urinary retention. ASSESSMENT: 82-year-old male with past medical history of congestive heart failure with reduced ejection fraction admitted at this time because of chest pain, decompensated systolic congestive heart failure and acute kidney injury superimposed on chronic kidney disease. PLAN: 1. Urinary retention. The patient was found to have more than 500 mL of residual on a bladder scan. Hoyos catheter was inserted and more than 500 mL of urine came out. Morning dose of her diuretic was held because patient is most likely going to have post obstructive diuresis at this time. The patient was started on Flomax 0.4 mg by mouth daily. Continue the Hoyos catheter at this time. 2. Acute kidney injury superimposed on chronic kidney disease. Initially, it was thought to be secondary to cardiorenal syndrome. He was diuresed. His creatinine improved, but it was fluctuating around 3. I think part of his acute kidney injury is secondary to urinary obstruction. Continue the Hoyos catheter at this time. Continue to monitor intake and output. 3. Decompensated systolic congestive heart failure. The patient's volume status is optimized. He has heart failure with reduced ejection fraction. He is not a candidate of LANCE inhibitors at this time because of acute kidney injury. His spironolactone dose was increased to 25 mg by mouth daily. Bumex dose is being decreased to 1 mg by mouth twice a day. His decreased urine output was most likely because of urinary obstruction. I hope that he would respond well to Bumex 1 mg by mouth twice a day. Volume status is optimized at this time. 4. Hpyermagnesemia. Milk of magnesia was stopped. Continue to monitor magnesium level now. 5. Hyponatremia. It is most likely secondary to fluid retention and urinary obstruction. Sodium level is expected to improve with diuresis. The plan of care was discussed with the hospitalist, Dr. Jamee Lazaro, at the bedside.
[2017-07-28 16:00] VITALS: BP 107/62
--- NOTE | 2017-07-28 16:16 | IPN ---
DATE: 07/28/2017 Patient seen and examined. No acute events overnight. Denies any chest pain, pressure, or discomfort. Continues to be fairly weak. Denies any shortness of breath. Patient's urine output has been decreased overnight. Bladder scan shows residual volume is 600. Subsequently, Hoyos catheter was placed. No fevers or chills. VITAL SIGNS: Temperature 97.7, pulse 88, respirations 19, blood pressure 105/64, pulse oximetry 96% on room air. LABORATORY DATA: WBC 7.3, hemoglobin and hematocrit 12.3/37.4, platelets 185. Chemistry: Sodium 135, potassium 5, chloride 99, bicarbonate 24, BUN 88, creatinine 3.03. PHYSICAL EXAMINATION: GENERAL: Patient alert, comfortable, in no acute distress. HEENT: Normocephalic, atraumatic. Right-sided conjunctivae much improved. PULMONARY: Diminished breath sounds bilaterally. CARDIAC: Regular S1, S2. 2/6 systolic murmur. ABDOMEN: Soft, nontender. Positive bowel sounds. EXTREMITIES: No edema bilateral lower extremities. ASSESSMENT AND PLAN: This is an 82-year-old male patient with underlying medical history of hypothyroidism, systolic congestive heart failure, ejection fraction 30%, aortic valve replacement with bioprosthetic valve, atrial fibrillation on anticoagulation, alcoholic cirrhosis, chronic obstructive pulmonary disease (COPD), coronary artery disease, obstructive sleep apnea, not on continuous positive airway pressure (CPAP), dyslipidemia, hypothyroidism, hepatorenal syndrome, chronic kidney disease (CKD) stage IV, history of alcohol abuse, admitted for acute congestive heart failure (CHF) exacerbation. 1. Acute congestive heart failure (CHF) exacerbation with systolic dysfunction. Ejection fraction (EF) of 30%. Consulted cardiology. Cardiac enzymes appreciated times three. Telemetry monitoring. EKGs. Continue aspirin and beta blockers. Patient on Coumadin. Initially on Lasix drip, currently switched to Bumex. Bumex has been adjusted as per nephrology. Followup electrolytes. Spironolactone has been restarted. Fluid restriction 1.5 liters. 2. Elevated troponin in the setting of chronic kidney disease (CKD) and congestive heart failure (CHF). Patient poor candidate for a cardiac catheterization as per cardiology. Continue aspirin and Coumadin. Followup INR. Cardiac enzymes. Telemetry monitoring. Echo appreciated. 3. Chronic kidney disease (CKD) stage IV. Creatinine continues to be more elevated. Patient's bladder scan shows residual of 600. Hoyos catheter was placed. Diuretic has been adjusted as per nephrology. Patient currently on Bumex and spironolactone. Strict intake and output, daily weight. Further followup as per nephrology. 4. Chest pain, currently resolved, secondary to congestive heart failure (CHF). CT scan appreciated. C-reactive protein appreciated. Cultures appreciated. Patient currently on Coumadin. Initially, on admission, with supratherapeutic INR. Continue aspirin. Echo is appreciated. 5. Hypothyroidism. Thyroid profile appreciated. Continue Synthroid. Outpatient followup. 6. Atrial fibrillation. Patient is currently ventricular paced. Beta june has been added. Continue anticoagulation. 7. Supratherapeutic INR. Patient currently therapeutic. Restarting Coumadin. Followup INR. 8. Chronic obstructive pulmonary disease (COPD). Continue home medication. Nebulizers as needed. 9. Obstructive sleep apnea. Patient reported that his continuous positive airway pressure (CPAP) machine has been broken and he has not been using it. Obstructive sleep apnea (JOHN) protocol. Encourage outpatient followup to get the patient's CPAP fixed. 10. Constipation. Bowel regimen has been given. Avoid milk of magnesia given elevated magnesium. Avoid Fleet enema. Will give lactulose, Senna, Senokot-S. Tap water enema as needed. 11. Deep venous thrombosis (DVT) prophylaxis. Patient on Coumadin with therapeutic INR. DISPOSITION: Patient with multiple comorbidities and multiorgan disease. Poor long-term prognosis. Physical therapy. Clinical improvement. Improvement of renal function.
[2017-07-28] MEDS: WARFARIN SOD 3 MG TAB PO SCH (17:04)
[2017-07-28 19:58] VITALS: BP 110/73
[2017-07-28] MEDS: METOPROLOL SUCC *XL* 25MG TAB (TopROL *XL*) PO SCH (20:53)
[2017-07-28] MEDS: TAMSULOSIN 0.4 MG CAP PO SCH (20:53)
[2017-07-28] MEDS: BUMETANIDE 1 MG TAB PO SCH (20:53)
[2017-07-29] VITALS (7 sets, daily range): BP systolic 101–136; BP diastolic 58–82
[2017-07-29 05:23] LABS: MEAN CORPUSCULAR HEMOGLOBIN 30.6 pg (27.0-33.0); MEAN CORPUSCULAR HGB CONC 32.3 g/dl (32.0-36.5); MEAN CORPUSCULAR VOLUME 94.7 fl (80.0-96.0); RED CELL DISTRIBUTION WIDTH 15.1 % (11.5-14.5); WHITE BLOOD COUNT 7.1 K/mm3 (4.0-10.0)
[2017-07-29 05:31] LABS: INR 2.75
[2017-07-29] MEDS: LEVOTHYROXINE 75MCG TABLET (0.075MG) PO SCH (05:46)
[2017-07-29 05:51] LABS: ALBUMIN 3.2 GM/DL (3.2-5.2); ALBUMIN/GLOBULIN RATIO 0.91 (1.00-1.93); BILIRUBIN,TOTAL 1.3 MG/DL (0.2-1.0); CALCIUM LEVEL 8.4 MG/DL (8.8-10.2); CREATININE FOR GFR 3.1 MG/DL (0.70-1.30); GLOMERULAR FILTRATION RATE 20.7 (>35); MAGNESIUM LEVEL 3.3 MG/DL (1.8-2.4); POTASSIUM SERUM 4.7 MEQ/L (3.5-5.1); TOTAL PROTEIN 6.7 GM/DL (6.4-8.2)
[2017-07-29] MEDS: TIOTROPIUM INHALER/CAPSULE (SPIRIVA) INH SCH (07:36)
[2017-07-29] MEDS: SYMBICORT 160/4.5MCG INHALER 6GM INH SCH ×2 (07:37→20:02)
[2017-07-29] MEDS: ASPIRIN 81 MG ENTERIC TAB PO SCH (08:30)
[2017-07-29] MEDS: SPIRONOLACTONE 25 MG TAB PO SCH (08:30)
[2017-07-29] MEDS: PANTOPRAZOLE 40MG TAB (PROTONIX) PO SCH (08:30)
[2017-07-29] MEDS: SENOKOT S TAB PO SCH ×2 (08:30→19:54)
[2017-07-29] MEDS: LACTULOSE 20 GM/30 ML SYRUP UD PO PRN (08:30)
[2017-07-29] MEDS: BUMETANIDE 1 MG TAB PO SCH ×2 (08:36→19:54)
--- NOTE | 2017-07-29 09:17 | IPN ---
DATE OF SERVICE: 07/29/2017 Mr. Mas is asking me immediately when I entered the room that he wants to go home. He has no specific complaints. He was able to sleep at night. The telemetry monitoring overnight though revealed runs of slow idioventricular rhythm. He also had some bigeminal PVCs but for the most part remains in a sense V paced rhythm. Blood pressure this morning 104/69, heart rate is 60 when I saw him with ventricular pacing. Saturation is actually 99% on room air. Fluid balance yesterday was documented at 1 liter negative. He still has a Hoyos catheter and his JVP remains high. Lungs reveal diminished breath sounds over both bases and heart exam is unchanged with regular rhythm. No gallop or rub. There is a murmur over the aortic valve unchanged and fairly subtle. Abdomen is distended. I do not appreciate any clear-cut shifting dullness. There is no peripheral edema. LABORATORY: Hemoglobin today is 11.8, hematocrit 36, platelet count 167,000. Basic metabolic panel: Potassium 4.7, BUN of 86, creatinine 3.1 for GFR 21 and glucose 109, INR is 2.7. ASSESSMENT/PLAN: Mr. Mas is an 82-year-old man who has known ischemic cardiomyopathy and history of aortic valve replacement with bioprosthesis. He presented with acutely exacerbated congestive heart failure systolic/diastolic in the setting of advanced renal insufficiency. He initially made reasonable progress with IV diuretics, but stopped responding well after switching to oral diuretics. Yesterday there was evidence for a high residual in his bladder and he received Hoyos catheter. I was very optimistic that it actually will help the management but his creatinine today is slightly worse. His CVP is still very high. Even though he wants to go home, I told him that I do not think is a good idea. I will leave it ultimately to the spin table operator but in my opinion, it would be reasonable to watch him at least one more day in hospital. I explained to him that ultimately he will succumb to his chronic conditions but to give him any time estimate is very challenging. I am still hopeful that the clearance of urinary obstruction will bring improvement and hopefully it was just too soon to see a result. As far as the arrhythmias are concerned, I will leave them untreated. I am sure they are related to the gravity of his underlying condition. He is not hypokalemic.
--- NOTE | 2017-07-29 13:04 | IPN ---
DATE OF SERVICE: 07/29/2017 SUBJECTIVE: Patient was seen and examined at the bedside today morning. Patient is hemodynamically stable. A Hoyos catheter was placed yesterday because of urinary retention. Patient made about 1.9 liters of urine yesterday. However, there is no improvement in the renal function. His creatinine is up to 3.1 today. REVIEW OF SYSTEMS: Patient denies any fever, chills and rigors. He does report some cough. He denies any nausea or vomiting. He denies any chest pain or shortness of breath. Patient denies any constipation or diarrhea. Rest of review of system is negative. OBJECTIVE: VITAL SIGNS: Temperature is 96.9 degrees Fahrenheit. Blood pressure is 104/69. Pulse is 118. Respiratory rate of 19. Saturating 99% on room air. INTAKE AND OUTPUT: Urine output recorded as 1.9 liter yesterday, 225 mL so far today since overnight. Weight on the bed scale is 95.9 kg. PHYSICAL EXAMINATION: GENERAL: Patient is awake, alert, oriented times three, sitting in the bed, in no apparent distress. HEAD AND NECK EXAM: Extraocular muscles intact. Pupils equally round and reactive to light. Mucous membranes are moist. Neck is supple. There is no jugular venous distention (JVD). CARDIOVASCULAR: S1, S2. Irregularly irregular heart rate. No murmur, rub, or gallop. RESPIRATORY: Decreased breath sounds at the bases with mild crepitations at the bases on deep inspiration. ABDOMEN: Is soft. Positive bowel sounds. Nontender. No ascites. No organomegaly. GENITOURINARY: Patient has an indwelling Hoyos catheter at this time. MUSCULOSKELETAL: No clubbing or cyanosis. Pulses are 2+. Very trace edema of the bilateral lower extremities. 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 Power is 5/5 in all extremities. SKIN: Patient has multiple ecchymoses and bruises on the skin. PSYCHIATRIC: Patient has a depressed mood at this time. LABORATORY REVIEW: CBC showed WBC of 7.1, hemoglobin 11.8, platelets of 167. INR is 2.7. BMP showed sodium 134, potassium 4.7, chloride 99, bicarbonate 26, BUN 86, creatinine is 3.1. Calcium is 8.4. Magnesium is 3.3. Total bilirubin 1.3. Albumin is 3.2. CURRENT INPATIENT MEDICATIONS: Patient's medications are all reviewed by me. Patient was restarted on Bumex 1 mg by mouth twice a day yesterday. He continues to be on spironolactone 25 mcg daily and 25 mcg dose was increased yesterday. There is no other change in the medications today as compared with yesterday. ASSESSMENT: 82-year-old male with past medical history of congestive heart failure with reduced ejection fraction admitted this time because of chest pain and decompensated systolic congestive heart failure along with acute kidney injury superimposed on chronic kidney disease. PLAN: 1. Acute kidney injury superimposed on chronic kidney disease. Most likely secondary to obstruction and cardiorenal syndrome. Creatinine continues to rise from 3 to 3.1 today. However, because of history of congestive heart failure, it is okay to continue the diuretics at this time. If patient does not respond well to oral diuretics at this time, the dose will be increased tomorrow. 2. Urinary retention. Hoyos catheter was placed yesterday. He had a good urine output yesterday. Flomax was also started. Patient will likely need to go home with a Hoyos catheter and have voiding trial as outpatient with urology office. 3. Decompensated systolic congestive heart failure. Continue Bumex 1 mg by mouth twice a day and spironolactone 25 mg by mouth daily. If needed, Bumex dose will be increased. Continue the fluid restriction at this time. 4. Hyponatremia. It is secondary to CHF and fluid restriction. Hyponatremia is expected to improve with further diuresis. MTDD
--- NOTE | 2017-07-29 15:15 | IPNPDOC ---
Date Seen The patient was seen on 07/29/17. Progress Note SUBJECTIVE: Patient is a 82 year-old male with acute congestive heart failure exacerbation with systolic dysfunction. Patient was seen and examined this morning. The patient express desire to go home this AM. He denies chest pain, chest pressure or shortness of breath. Patient had no overnight events. Was afebrile overnight. Sufficient urine output yesterday with 1.9 liters of urine. Creatine increased from 3 to 3.1. OBJECTIVE PHYSICAL EXAMINATION: VITAL SIGNS: Please see below. GENERAL: Pleasant elderly gentlemen in no acute distress. Sitting up comfortable on his bed HEENT: Elevated JVP. CARDIOVASCULAR: Pacemaker. S1 and S2 present regular sinus rhythm. 2/6 systolic murmur on left sternal border. no rubs or gallops. RESPIRATORY: Crackles on right base. Diminished breath sounds on the left base. ABDOMINAL: soft, nontender, nondistended. Positive bowl sounds. EXTREMITIES: 1+ edema of the left anterior leg s/p metal leland insertion in . no peripheral edema appreciated on the right leg. LABORATORY DATA: Please see below. MICROBIOLOGY: Please see below. ASSESSMENT AND PLAN: Patient is a 82 year-old male with acute congestive heart failure exacerbation with systolic dysfunction. PROBLEMS: 1. Acute Decompensated Congestive Heart Failure Exacerbation w/ Systolic Dysfunction: Ejection Fraction of 30%. Continue Bumex 1 mg PO BID and Spironolactone 25 mg PO daily AM. Continue Aspirin 81 mg Daily PO and Toprol XL 25 mg qhs PO. Per nephrology, ff if the patient doesn't respond well Bumex dose will be increased tomorrow, 07/30. Continue the fluid restriction 1.5L at this time. Cardiology and Nephrology follow up is appreciated. 2. Acute Kidney injury likely secondary to obstruction and cardiorenal syndrome : Creatine has increased from 3 to 3.1 this morning. Will continue to monitor the patient while the patient is receiving diuretic. Nephrology follow up is appreciated. 3. Urinary Retention: Continue Hoyos Catheter. Continue Flomax 0.4 mg qhs PO. Will consider discharging with Hoyos catheter and have voiding trial as outpatient with urology office. Nephrology follow up is appreciated. 4. Elevated troponin in the setting of kidney injury and congestive heart failure: Per cardiology, patient is poor candidate for a cardiac catheterization Continue aspirin and Coumadin. Current INR 2.75. Telemetry monitoring. 5. Hypothyroidism: 07/23/17 TSH: 7.99, Free T4: 3.4 T4: 8.4 V0xpmbof: 41. Patient has no complaints of thyroid related issue this AM. Will Continue Synthroid and continue to monitor inpatient . Outpatient followup. 6. Atrial fibrillation: Patient is currently ventricular paced. Continue Toprol XL 25 mg qhs PO. Continue anticoagulation. 7. Supratherapeutic INR: Current INR 2.75. Patient on Coumadin will continue to monitor INR. 8. Chronic obstructive pulmonary disease (COPD): Continue home medication. Nebulizers as needed. 9. Obstructive sleep apnea: Patient reported that his continuous positive airway pressure (CPAP) machine has been broken and he has not been using it. Obstructive sleep apnea (JOHN) protocol. Encourage outpatient followup to get the patient's CPAP fixed. 10. Constipation improving. Past 24 hours patient had 4 bowl movements. Avoid milk of magnesia given elevated magnesium. Currently at 3.3. Avoid Fleet enema. Continue lactulose and Senna. Give tap water enema as needed. 11. Deep venous thrombosis (DVT) prophylaxis. Patient on Coumadin with therapeutic INR. VS, I&O, 24H, [facility], [facility] Vital Signs/I&O Vital Signs Date Time Temp Pulse Resp B/P (MAP) Pulse Ox O2 Delivery O2 Flow Rate FiO2 07/29/17 12:00 97.6 73 20 136/82 (100) 96 Room Air 07/27/17 19:48 I&O- Last 24 Hours up to 6 AM 07/29/17 06:00 Intake Total 960 ml Output Total 1900 ml Balance -940 ml Laboratory Data 24H LABS Laboratory Tests 2 07/29/17 04:44: Prothrombin Time 30.3H, Prothromb Time International Ratio 2.75, Anion Gap 9, Glomerular Filtration Rate 20.7L, Blood Urea Nitrogen 86H, Creatinine 3.10H, Sodium Level 134L, Potassium Level 4.7, Chloride Level 99, Carbon Dioxide Level 26, Calcium Level 8.4L, Aspartate Amino Transf (AST/SGOT) 16, Alanine Aminotransferase (ALT/SGPT) 22, Alkaline Phosphatase 136H, Total Bilirubin 1.3H , Total Protein 6.7, Albumin 3.2, Magnesium Level 3.3H, Albumin/Globulin Ratio 0.91L CBC/BMP Laboratory Tests 07/29/17 04:44 Red Blood Count 3.85 L, Mean Corpuscular Volume 94.7, Mean Corpuscular Hemoglobin 30.6, Mean Corpuscular Hemoglobin Concent 32.3, Red Cell Distribution Width 15.1 H, Calcium Level 8.4 L, Aspartate Amino Transf (AST/SGOT ) 16, Alanine Aminotransferase (ALT/SGPT) 22, Alkaline Phosphatase 136 H, Total Bilirubin 1.3 H, Total Protein 6.7, Albumin 3.2 Microbiology Microbiology 07/23/17 Blood Culture - Final, Complete NO GROWTH AFTER 5 DAYS 07/23/17 Blood Culture - Final, Complete NO GROWTH AFTER 5 DAYS 07/24/17 Gram Stain - Final, Complete 07/24/17 Sputum Culture - Final, Complete 07/23/17 Respiratory Virus Panel (PCR) (NAVID) - Final, Complete ADEEL ROMAN DO Jul 29, 2017 15:15
[2017-07-29] MEDS: ONDANSETRON 4MG/2ML VIAL (J2405) IV PRN (15:27)
[2017-07-29] MEDS: WARFARIN SOD 3 MG TAB PO SCH (16:47)
[2017-07-29] MEDS ORDERED: FUROSEMIDE 100 MG/10 ML VIAL (J1940) IV ONE (18:30)
[2017-07-29] MEDS: TAMSULOSIN 0.4 MG CAP PO SCH (20:22)
[2017-07-29] MEDS: METOPROLOL SUCC *XL* 25MG TAB (TopROL *XL*) PO SCH (20:22)
[2017-07-30 04:00] VITALS: BP 108/59
[2017-07-30] MEDS: LEVOTHYROXINE 75MCG TABLET (0.075MG) PO SCH (05:08)
[2017-07-30 05:35] LABS: MEAN CORPUSCULAR HEMOGLOBIN 30.8 pg (27.0-33.0); MEAN CORPUSCULAR HGB CONC 33.2 g/dl (32.0-36.5); MEAN CORPUSCULAR VOLUME 92.8 fl (80.0-96.0); RED CELL DISTRIBUTION WIDTH 14.8 % (11.5-14.5); WHITE BLOOD COUNT 6.8 K/mm3 (4.0-10.0)
[2017-07-30 05:43] LABS: INR 3.43
[2017-07-30 05:51] LABS: ALBUMIN 3.1 GM/DL (3.2-5.2); ALBUMIN/GLOBULIN RATIO 0.89 (1.00-1.93); BILIRUBIN,TOTAL 1.3 MG/DL (0.2-1.0); CALCIUM LEVEL 8.6 MG/DL (8.8-10.2); CREATININE FOR GFR 3.18 MG/DL (0.70-1.30); GLOMERULAR FILTRATION RATE 20.1 (>35); MAGNESIUM LEVEL 3.1 MG/DL (1.8-2.4); TOTAL PROTEIN 6.6 GM/DL (6.4-8.2)
[2017-07-30] MEDS: TIOTROPIUM INHALER/CAPSULE (SPIRIVA) INH SCH (07:05)
[2017-07-30] MEDS: SYMBICORT 160/4.5MCG INHALER 6GM INH SCH (07:05)
[2017-07-30 07:30] VITALS: BP 101/63
[2017-07-30] MEDS ORDERED: BUMETANIDE 1 MG TAB PO SCH ×2 (09:00→21:00)
--- NOTE | 2017-07-30 09:24 | IPN ---
DATE: 07/30/2017 This is a pleasant 82-year-old male who was admitted with acute congestive heart failure (CHF) exacerbation with systolic dysfunction. The patient was seen and examined this morning in his bed. The patient expressed a desire to go home this morning. He denies any chest pain, chest pressure or shortness of breath. The patient denies having any overnight events and the nurses agree. The patient was afebrile overnight. The patient did refuse to take Bumex last night after getting Lasix at 7:00 p.m. The patient went over his fluid restriction of 15 mL. Creatinine this morning increased from 3.1 to 3.18. OBJECTIVE: PHYSICAL EXAMINATION: Vital signs: Temperature 97.3, pulse 60, respiratory rate of 18, blood pressure of 108/59, pulse oximetry 95% on room air. GENERAL: Pleasant, elderly gentleman in no acute distress. Lying down comfortably in his bed. CARDIOVASCULAR: Pacemaker. S1, S2 present. Regular sinus rhythm. 2/6 systolic murmur on the left sternal border. No rubs or gallops appreciated. RESPIRATORY: Crackles on the right base. Diminished breath sounds on the left base. ABDOMEN: Soft, nontender, nondistended. Positive bowel sounds in all quadrants. EXTREMITIES: Trace edema around the left ankle. 1+ peripheral edema appreciated around the right ankle. LABORATORY DATA: WBC 6.8, hemoglobin 12.1, hematocrit 36.5, platelets of 173. Sodium of 134, potassium 5.0, chloride 100, carbon dioxide 24, BUN 87, creatinine 3.18, anion gap of 10, fasting glucose of 114, calcium of 8.6, magnesium 3.1, total bilirubin 1.3, AST 17, ALT 22, alkaline phosphatase 129, total protein 6.6, albumin 3.1. Coagulation: PT 36.2, INR 2.43. Microbiology: Blood cultures with no growth, final. Respiratory virus panel, final, negative. Gram stain of sputum cultures negative, final. No new imaging was done overnight. ASSESSMENT AND PLAN: This is an 82-year-old male with acute congestive heart failure (CHF) exacerbation with systolic dysfunction. PROBLEMS: 1. Acute decompensated congestive heart failure (CHF) exacerbation with systolic dysfunction. Ejection fraction of 30%. Continue Bumex 1 mg by mouth twice a day and spironolactone 25 mg by mouth daily. Continue aspirin 81 mg daily, metoprolol 25 mg at night by mouth. The patient is to continue the fluid restriction of 1.5 liters at this time. Cardiology and nephrology help appreciated. 2. Acute kidney injury, likely secondary to obstruction and cardiorenal syndrome. Creatinine is increased from 3.1 to 3.18 this morning. We will continue to monitor the patient while he is receiving diuretics. 3. Urinary retention. Continue Hoyos catheter. Continue Flomax 0.4 mg at night by mouth. We will consider discharging with Hoyos catheter and have a voiding trial as an outpatient with urology office. 4. Hypothyroidism. The patient has no complaints of thyroid related issues. We will continue Synthroid and continue to monitor inpatient. Outpatient followup. 5. Atrial fibrillation. The patient is currently ventricular paced. Continue metoprolol 25 mg. Continue anticoagulation. 6. Supratherapeutic INR. INR is currently at 3.43. The patient is on Coumadin. We will hold it today and resume tomorrow. 7. Chronic obstructive pulmonary disease (COPD). Continue home medications. 8. Constipation. Improving. The patient has been having multiple bowel movements yesterday. The patient does have senna on board. Is avoiding milk of magnesia because of elevated magnesium. Current levels are 3.1. We will avoid Fleet enema. We will hold on the Lactulose, Senna as of right now. 9. Deep vein thrombosis (DVT) prophylaxis. The patient is currently on Coumadin with INR of 3.43. We will continue to monitor. My preceptor for this patient encounter was Dr. Hummel. The preceptor was physically present in the building during the encounter and was fully available. As needed, all aspects of the patient interview, examination, medical decision making process, and medical care plan development were reviewed and approved by the preceptor. The preceptor is aware and concurs with the plan as stated in the body of this note and will attest to such by his/her cosignature. ADIEL
[2017-07-30] MEDS: ASPIRIN 81 MG ENTERIC TAB PO SCH (10:23)
[2017-07-30] MEDS: SPIRONOLACTONE 25 MG TAB PO SCH (10:24)
[2017-07-30] MEDS: PANTOPRAZOLE 40MG TAB (PROTONIX) PO SCH (10:24)
[2017-07-30] MEDS: SENOKOT S TAB PO SCH (10:24)
[2017-07-30 12:00] VITALS: BP 108/69
[2017-07-30] MEDS ORDERED: BUME1TA PO ×2 (12:31)
--- NOTE | 2017-07-30 13:41 | IPN ---
DATE OF SERVICE: 07/30/2017 SUBJECTIVE: Patient was seen and examined at the bedside today morning. Patient was given a dose of Lasix 60 mg IV yesterday. He responded well to the IV Lasix, however after that, family refused to give oral Bumex to the patient. His renal function is stable today. His creatinine is fluctuating around 3.1 now. Patient is otherwise hemodynamically stable and patient wants to go home today. REVIEW OF SYSTEMS: Patient denies any fever or chills, rigors, headache, nausea, vomiting or chest pain. He does report mild shortness of breath and some cough. He denies any pain abdomen, constipation or diarrhea. Rest of review of system is negative. OBJECTIVE: Vital signs: Temperature is 97.2 degrees Fahrenheit, blood pressure is 101/63, pulse is 67, respiratory rate 18, saturating 100% on room air. Intake and output: Urine output recorded as 1.1 liter yesterday. 200 mL so far today since overnight. Weight on the bed scale is 97.1 kg. PHYSICAL EXAMINATION: General: Patient is awake, alert, oriented times three, lying in bed, no apparent distress. Head and neck exam: Extraocular muscles intact. Pupils equally round and reactive to light. Mucous membranes are moist. Neck is supple, there is no jugular venous distention (JVD). Cardiovascular: S1, S2. Irregularly irregular heart rate. No murmur, rub or gallop. Respiratory: Decreased breath sounds at the bases with mild crepitations at the bases on deep inspiration. Abdomen is soft, positive bowel sounds, nontender. No ascites. No organomegaly. Genitourinary: Patient has an indwelling Hoyos catheter at this time. Urine in the bag is clear. Musculoskeletal: No clubbing or cyanosis. Pulses are 2+. Trace edema of the bilateral lower extremities. Central nervous system: No focal neurological deficit. Power is 5/5 in all extremities. Skin: Patient has multiple ecchymosis and bruises on the skin. Otherwise no rashes. Psych: Normal mood and affect. LAB REVIEW: CBC showed WBC of 6.8, hemoglobin 12.1, platelets 173. INR is 3.43 today which is supratherapeutic. BMP showed sodium 134, potassium is 5, chloride 100, bicarbonate 24, BUN 87, creatinine is 3.1, it was 3.1 yesterday as well. Calcium 8.6, magnesium 3.1 which is improving. Total bilirubin 1.3. Albumin is 3.1. CURRENT INPATIENT MEDICATIONS: Patient's medications were all reviewed by me. Patient's Bumex dose has been changed to 2 mg in the morning, 1 mg in the evening. There is no other change in the medications today as compared with yesterday. ASSESSMENT: 82-year-old male with past medical history of congestive heart failure with reduced ejection fraction admitted this time because of chest pain and decompensated systolic congestive heart failure along with acute kidney injury superimposed on chronic kidney disease. PLAN: 1. Acute kidney injury superimposed on chronic kidney disease. Patient's creatinine is fluctuating at around 3. Acute kidney injury secondary to cardiorenal syndrome. Okay to continue diuretics at this time. Patient can followup with nephrology service as outpatient for further management. 2. Urinary retention. Patient has an indwelling Hoyos catheter at this time. Patient was started on Flomax. He needs to followup with urology service as outpatient for voiding trial. 3. Decompensated systolic congestive heart failure. Patient was not responding well to Bumex 1 mg by mouth twice daily. Bumex dose has been increased to 2 mg in the morning, 1 mg in the evening. Continue current dose of spironolactone 25 mg by mouth daily. The rest of the diuretic regimen will be adjusted as outpatient. 4. Hyponatremia. It is secondary to CHF and fluid overload. Sodium level is expected to improve with further diuresis. Continue the fluid restriction at 1.5 liters. DISPOSITION: It is okay to discharge the patient from nephrology stand point. He needs to followup in nephrology within 1 week after discharge from the hospital and diuretics will be changed thereupon. Plan of care was discussed with the hospitalist Dr. Sadaf Hummel.
--- NOTE | 2017-07-30 16:46 | DS.PDOC ---
Discharge Summary General Date of Admission Jul 23, 2017 at 09:29 Date of Discharge Jul 30, 2017 Primary Care Physician: Dandy Coello Discharge Summary PROCEDURES PERFORMED DURING STAY: ADMITTING DIAGNOSES: 1. Acute CHF exacerbation with systolic dysfunction, ejection fraction 2. CKD, stage IV DISCHARGE DIAGNOSES: 1. Acute CHF exacerbation with systolic dysfunction, ejection fraction 2. CKD, stage IV COMPLICATIONS/CHIEF COMPLAINT: Chronic Systolic Congestive Heart Failure. HISTORY OF PRESENT ILLNESS: This is an 82-year-old male patient with underlying medical history of systolic congestive heart failure with ejection fraction of 30%, aortic stenosis with bioprosthetic aortic valve replacement, atrial fibrillation, on anticoagulation with Coumadin, alcoholic liver cirrhosis with history of hepatorenal syndrome, chronic kidney disease (CKD), stage IV, coronary artery disease, obstructive sleep apnea. Patient has not been using continuous positive airway pressure (CPAP). Dyslipidemia, hypothyroidism. Patient reported that for the past one week he has not been doing well with progressively worsening shortness of breath. Sleeps on two pillows at night. Denies any sick contacts. Over the course of last one day patient's condition worsened with worsening shortness of breath and cough. Overnight starting around 2 a.m. patient developed chest pressure and discomfort, about 4/10, that is persistent. Subsequently presented to the emergency room. Also reported for the past two days patient has been urinating less. Yesterday patient urinated about 1.5 liters. Over the last 24 hours only 1 liter. Patient is on 1500 mL fluid restriction at home. Reported substernal chest pressure, not radiating anywhere, with no relieving or exacerbating factor, improved with morphine in the emergency room. Patient was seen in the emergency room by motion picture critic, Dr. Henry, who believes that the patient has acute congestive heart failure (CHF) exacerbation. Furthermore, patient has refused dialysis in the setting of CKD, stage IV. Catheterization would certainly put the patient into dialysis, and patient also came in with supratherapeutic INR with mild elevation of troponin. Decision was made for patient to be admitted for further diuresis. Patient denies any fevers or chills. Report of cough and shortness of breath. Denies any lower extremity swelling that is out of ordinary. Denies any nausea, vomiting, abdominal pain, diarrhea. Denies any diaphoresis. Baseline not on oxygen at home. HOSPITAL COURSE: Acute Decompensated Congestive Heart Failure Exacerbation w/ Systolic Dysfunction: Ejection Fraction of 30%. Started the patient on Bumex 1 mg PO BID and Spironolactone 25 mg PO daily AM. Continued Aspirin 81 mg Daily PO and Toprol XL 25 mg qhs PO. He was placed on fluid restriction 1.5L at this time. Acute Kidney injury likely secondary to obstruction and cardiorenal syndrome: while receiving diuretic patient creatine was followed. Creatine has ranged 2.91 to 3.18. Nephrology was following. For Urinary Retention: patient had a Hoyos Catheter was on Continue Flomax 0.4 mg qhs PO. Decided to discharge with Hoyos catheter and have voiding trial as outpatient with urology office. Elevated troponin in the setting of kidney injury and congestive heart failure : Per cardiology, patient is poor candidate for a cardiac catheterization so patient was continued on aspirin and Coumadin while inpatient and telemetry monitoring while in hospital. Hypothyroidism was followed on 07/23/17 TSH: 7.99 , Free T4: 3.4 T4: 8.4 [id number]: 41. Patient has no complaints of thyroid related issue during his stay. we continued on Synthroid and monitored him inpatient . DISCHARGE MEDICATIONS: Please see below. ALLERGIES: Please see below. PHYSICAL EXAMINATION ON DISCHARGE : Please refer to my progress note on discharge date for physical exam. VITAL SIGNS: Please see below. GENERAL: HEENT: NECK: CARDIOVASCULAR EXAMINATION: RESPIRATORY EXAMINATION: ABDOMINAL EXAMINATION: EXTREMITIES: SKIN: NEUROLOGICAL EXAMINATION: PSYCHIATRIC EXAMINATION: LABORATORY DATA: Please see below. IMAGIN07/23/17 Chest xray Impression: Chronic stable changes. Cannot exclude subtle superimposed acute process. 07/23/17 - CT Chest without contrast Extensive chronic pleuroparenchymal changes bilaterally which are stable. No acute infiltrate seen. 07/23/17 Renal U.S. Impression: No evidence for hydronephrosis. Stable 7.3 cm right renal cyst. PROGNOSIS: multiple commodities, poor prognosis DIET: fluid restriction 1500ml, no added salt diet DISCHARGE PLAN: Acute decompensated congestive heart failure (CHF) exacerbation with systolic dysfunction. Ejection fraction of 30%. Continue spironolactone 25 mg by mouth daily. Continue aspirin 81 mg daily, metoprolol 25 mg at night by mouth. The patient is to continue the fluid restriction of 1.5 liters at this time. Patient is being discharged today, per nephro patient is follow up with them in 3 days and take 2mg Bumex in the AM and 1 mg in the PM. script sent to patient pharmacy on file. 2. Acute kidney injury, likely secondary to obstruction and cardiorenal syndrome. Creatinine is increased from 3.1 to 3.18 this morning. Patient will follow up with nephro outpatient in 3 days. 3. Urinary retention. Continue Hoyos catheter. Continue Flomax 0.4 mg at night by mouth. Patient is be discharge with Hoyos catheter and have a voiding trial as an outpatient with urology office. 4. Hypothyroidism. The patient has no complaints of thyroid related issues. We will continue Synthroid and patient is to have outpatient followup. 5. Atrial fibrillation. The patient is currently ventricular paced. Continue metoprolol 25 mg. Continue anticoagulation. 6. Supratherapeutic INR. INR is currently at 3.43. The patient is on Coumadin. We will hold it today and the patient is to resume normal dose tomorrow. 7. Chronic obstructive pulmonary disease (COPD). Continue home medications. 8. Constipation. Improving. The patient has been having multiple bowel movements yesterday. Is avoiding milk of magnesia because of elevated magnesium. Current levels are 3.1. DISCHARGE INSTRUCTIONS: 1. Hold Coumadin on day of discharge can resume tomorrow ITEMS TO FOLLOWUP ON ON OUTPATIENT: 1. Follow up with Nephrology as soon possible. 2. Follow up with PCP w/in 7 days. 3. Pcp refer to urology discharging with Hoyos catheter and have voiding trial as outpatient with urology office DISCHARGE CONDITION: Stable TIME SPENT ON DISCHARGE: Greater than 30 minutes. Vital Signs/I&Os Vital Signs Date Time Temp Pulse Resp B/P (MAP) Pulse Ox O2 Delivery O2 Flow Rate FiO2 07/30/17 07:30 97.2 67 20 101/63 (76) 100 Room Air 07/27/17 19:48 I&O- Last 24 Hours up to 6 AM 07/30/17 06:00 Intake Total 2130 ml Output Total 1150 ml Balance 980 ml Laboratory Data Labs 24H Laboratory Tests 2 07/30/17 05:02: Prothrombin Time 36.2H, Prothromb Time International Ratio 3.43, Anion Gap 10, Glomerular Filtration Rate 20.1L, Blood Urea Nitrogen 87H, Creatinine 3.18H, Sodium Level 134L, Potassium Level 5.0, Chloride Level 100, Carbon Dioxide Level 24, Calcium Level 8.6L, Aspartate Amino Transf (AST/SGOT) 17, Alanine Aminotransferase (ALT/SGPT) 22, Alkaline Phosphatase 129H, Total Bilirubin 1.3H , Total Protein 6.6, Albumin 3.1L, Magnesium Level 3.1H, Albumin/Globulin Ratio 0.89L CBC/BMP Laboratory Tests 07/30/17 05:02 Red Blood Count 3.94 L, Mean Corpuscular Volume 92.8, Mean Corpuscular Hemoglobin 30.8, Mean Corpuscular Hemoglobin Concent 33.2, Red Cell Distribution Width 14.8 H, Calcium Level 8.6 L, Aspartate Amino Transf (AST/SGOT ) 17, Alanine Aminotransferase (ALT/SGPT) 22, Alkaline Phosphatase 129 H, Total Bilirubin 1.3 H, Total Protein 6.6, Albumin 3.1 L Microbiology Microbiology 07/23/17 Blood Culture - Final, Complete NO GROWTH AFTER 5 DAYS 07/23/17 Blood Culture - Final, Complete NO GROWTH AFTER 5 DAYS 07/24/17 Gram Stain - Final, Complete 07/24/17 Sputum Culture - Final, Complete 07/23/17 Respiratory Virus Panel (PCR) (NAVID) - Final, Complete Discharge Medications Scheduled (Aspirin Adult Low Dose) 81 Mg Tab, 81 MG PO DAILY, (Reported) (Preservision Areds 2) 1 Cap Cap, 1 CAP PO BID, (Reported) Albuterol Sulfate (Albuterol Sulfate) 2.5 Mg/3 Ml Nebu, 1 VIAL INH TID, ( Reported) Budesonide/Formoterol (Symbicort 160-4.5 Mcg/Act) 60 Puff/Inhaler Aers, 2 PUFF INH BID, (Reported) Bumetanide (Bumetanide) 1 Mg Tab, 2 MG PO QAM Bumetanide (Bumetanide) 1 Mg Tab, 1 MG PO QPM Levothyroxine Sodium (Synthroid) 75 Mcg Tab, 75 MCG PO DAILY, (Reported) Metoprolol Succinate (Metoprolol Succinate ER) 25 Mg Tab, 25 MG PO DAILY, ( Reported) Tiotropium [place] Monohydrate (Spiriva Handihaler) 5 Inhalation/Inhaler Powd, 1 INHALATION INH DAILY, (Reported) Vitamin D (Drisdol) 50,000 Unit Cap, 50,000 UNIT PO QWEEK, (Reported) SATURDAYS Warfarin Sod (Coumadin) 2 Mg Tab, 2 MG PO 4XWK, (Reported) SATURDAY,SATURDAY,SATURDAY,AND SUNDAYS Warfarin Sod (Coumadin) 4 Mg Tab, 4 MG PO 3XW, (Reported) SATURDAY, SATURDAY, AND SATURDAYS Scheduled PRN Albuterol Sulfate (Proair Hfa) 108 Mcg/Act Aer, 2 PUFF IN QID PRN for SHORTNESS OF BREATH, (Reported) Allergies Coded Allergies: No Known Allergies (Unverified , 06/04/13) ADEEL ROMAN DO Jul 30, 2017 13:39
== END 2017-07-30 15:35 | disposition home or self-care (01) | DRG 291 ==
LOC: M ED 03:03 → M ED INP 09:29 → M PCU 13:54
PROVIDERS: ADMIT Hospitalist; ATTEND Internal Medicine
DX: I13.0 Hypertensive heart and chronic kidney disease with heart failure and stage 1 through stage 4 chronic kidney disease, or unspecified chronic kidney disease (principal); I50.23 Acute on chronic systolic (congestive) heart failure; N18.4 Chronic kidney disease, stage 4 (severe); N17.9 Acute kidney failure, unspecified; E87.1 Hypo-osmolality and hyponatremia; I48.2 Chronic atrial fibrillation; Z79.01 Long term (current) use of anticoagulants; K70.30 Alcoholic cirrhosis of liver without ascites; I25.10 Atherosclerotic heart disease of native coronary artery without angina pectoris; G47.33 Obstructive sleep apnea (adult) (pediatric); E03.9 Hypothyroidism, unspecified; E78.5 Hyperlipidemia, unspecified; Z95.2 Presence of prosthetic heart valve; R33.9 Retention of urine, unspecified; J44.9 Chronic obstructive pulmonary disease, unspecified; K59.00 Constipation, unspecified; Z79.82 Long term (current) use of aspirin; Z79.899 Other long term (current) drug therapy; I35.0 Nonrheumatic aortic (valve) stenosis; Z95.0 Presence of cardiac pacemaker; Z96.651 Presence of right artificial knee joint; F17.200 Nicotine dependence, unspecified, uncomplicated; I25.5 Ischemic cardiomyopathy; E87.5 Hyperkalemia; E83.42 Hypomagnesemia